=== PATIENT | male | born 1960 | race Caucasian/White ===

== ENCOUNTER 2019-12-18 09:39 | Outpatient (CLI) | payer BC, SELFPAY ==
[2019-12-18 09:54] LABS: Basophils Absolute Auto 0.07 K/mm3 (0.00-0.10); Eosinophils Absolute Auto 0.18 K/mm3 (0.02-0.50); Eosinophils Percent Auto 2.5 % (1.0-6.0); Hematocrit 41.7 % (40.0-54.0); Hemoglobin 14.1 g/dL (14.0-18.0); Immature Granulocyte Absolute 0.02 K/mm3 (0.00-0.00); Immature Granulocyte Percent A 0.3 % (0.0-0.0); Lymphocytes Absolute Auto 1.74 K/mm3 (1.10-4.50); Lymphocytes Percent Auto 23.8 % (18.0-42.0); Mean Corpuscular HGB Conc 33.8 g/dL (32.0-36.0); Mean Corpuscular Hemoglobin 33.3 pg (27.0-31.0); Mean Corpuscular Volume 98.3 fL (78.0-102.0); Mean Platelet Volume 9.1 fl (8.7-11.0); Monocytes Absolute Auto 0.52 K/mm3 (0.10-0.90); Monocytes Percent Auto 7.1 % (2.0-11.0); Neutrophils Absolute Auto 4.8 K/mm3 (1.7-7.2); Neutrophils Percent Auto 65.3 % (50.0-70.0); Platelet Count Result 169 K/mm3 (150-420); Red Blood Count 4.24 M/mm3 (4.70-6.10); Red Cell Distribution Width 15.1 % (11.6-14.4); White Blood Count 7.3 K/mm3 (4.8-10.8)
[2019-12-18 10:32] LABS: Alanine Aminotransferase 21 U/L (16-63); Albumin Level 3.6 g/dL (3.4-5.0); Alkaline Phosphatase 87 U/L (46-116); Anion Gap 13.2 mmol/L (7-16); Aspartate Amino Transferase 13 U/L (15-37); Bilirubin,Total 0.4 mg/dL (0.00-1.00); Blood Urea Nitrogen 14 mg/dL (7-18); Calcium 8.7 mg/dL (8.5-10.1); Carbon Dioxide 28 mmol/L (21-32); Chloride 101 mmol/L (98-108); Estimated Glomerular Filt Rate > 60; Glucose 110 mg/dL (70-99); Osmolality Calculated 287 mOsm/kg (285-295); Potassium 4.2 mmol/L (3.5-5.1); Sodium 138 mmol/L (136-145); Total Protein 6.7 g/dL (6.4-8.2)
== END 2019-12-18 09:40 | disposition home or self-care (01) ==
LOC: CHSLAB 09:42
PROVIDERS: PCP Family Medicine; Visit Provider Internal Medicine Gastroenterology
DX: R10.9 Unspecified abdominal pain (principal)
CPT/HCPCS: 36415; 80053; 85025

== ENCOUNTER 2020-01-10 08:24 | Outpatient (CLI) | payer BC, SELFPAY ==
--- NOTE | ~2020-01-10 | CT_ITS ---
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 Automated exposure control and iterative reconstruction technique were employe d. Exam dose: 568.49 mGy-cm total exam DLP. COMPARISON: 02/17/2019 CT thorax abdomen and pelvis FINDINGS: The lung bases are clear of infiltrate or consolidation. Normal heart size. No pericardial or pleural effusion. There is diffuse hepatic steatosis. No hepatic space-occupying mass lesion is evident. The liver, gal lbladder, bile ducts, spleen, pancreas and pancreatic duct as well as adrenal glands and kidneys are unremarkable. Normal caliber of the abdominal aorta. No intraperitoneal or retroperitoneal or pelvic mass lesion or adenopathy or ascites. Gastric and small bowel sutures related to gastric bypass surgery are noted. 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 There is a wide supraumbilical ventral midline abdominal wall hernia without any bowel obstruction or strangulat ion. No bowel obstruction, bowel wall thickening, pneumatosis or intraperitoneal free air. There is atherosclerotic calcification of the abdominal aorta and iliac arteries and femoral arteries but no aneurysm. No intraperitoneal or retroperitoneal or pelvic mass lesion or adenopathy or ascite s. There is a small fat-containing left inguinal hernia. There is mild generalized thickening of the urinary bladder wall. There is moderate prostate enlargem ent as well as prostate calcifications. No suspicious osteolytic or osteoblastic lesions. 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 Reviewed, dictated and finalized at location [facility]. IMPRESSION: Status post right colectomy for history of carcinoma of the hepati c flexure of the colon; no recurrent or metastatic disease is evident Supraumbilical ventral abdominal wall hernia Hepatic steatosis Status post gastric bypass graft surgery Mild diffuse urinary bladder wall thickening likely secondary to prostate enlar gement
== END 2020-01-10 08:25 | disposition home or self-care (01) ==
PROVIDERS: PCP Family Medicine; Visit Provider Internal Medicine Hematology & Oncology
DX: C18.3 Malignant neoplasm of hepatic flexure (principal)
CPT/HCPCS: 74177; Q9965

== ENCOUNTER 2020-03-04 01:25 | Outpatient (CLI) | payer BC, SELFPAY ==
[2020-03-04 18:03] LABS: SARS-CoV-2 RNA PCR Negative
== END 2020-03-04 01:26 | disposition home or self-care (01) ==
LOC: ANHCOVIDDT 01:25
PROVIDERS: PCP Family Medicine; Visit Provider Surgery
DX: Z01.812 Encounter for preprocedural laboratory examination (principal); Z20.828 Contact with and (suspected) exposure to other viral communicable diseases
CPT/HCPCS: 87635; C9803; U0003

== ENCOUNTER 2020-03-08 11:15 | Inpatient (IN) | payer BC, SELFPAY ==
[2020-02-23 13:23] VITALS: BMI 30.3
[2020-03-07] VITALS (18 sets, daily range): BP systolic 106–161; BP diastolic 63–91; PULSE 70–105; RESP 12–20; TEMP 36.3–37.3; O2SAT 92–99
[2020-03-07] MEDS: LACTATED RINGERS 1,000 ML 30 ML IV CONT ×2 (06:50→11:56)
[2020-03-07] MEDS: ACETAMINOPHEN 500 MG TABLET 1000 MG PO (06:53)
[2020-03-07] MEDS: KETOROLAC 15 MG/ML VIAL (*BKC) IV PUSH (06:54)
--- NOTE | 2020-03-07 07:04 | WPDANESEPPF ---
Anes - Initial Pre Proc Eval Procedure: Operation Date: 03/07/20 07:30 Proposed Procedures p Open Retrorectus Recurrent Incisional Hernia Repair With Mesh, Possible Bilateral Component Separation - Enrique Ward DO Date/Time: 03/07/20 07:04 Surgeon: Enrique Ward DO Pre Op Diagnosis: Recurrent Incisional Hernia Patient Data Age: 59 Gender: M Height: 5 ft 8 in Weight: 90.5 kg Allergies Allergy/AdvReac Type Severity Reaction Status Date / Time No Known Allergies Allergy Verified 02/15/20 09:06 Home Medications Medication Instructions Recorded Confirmed Type aspirin 81 mg PO DAILY 04/26/19 02/23/20 History Centrum Silver Men 1 tablet PO DAILY 05/05/19 02/23/20 History vitamin B complex [B 3,000 tablet PO DAILY 05/05/19 02/23/20 History Complex-Vitamin B12] gabapentin 300 mg PO BID 09/27/19 02/23/20 History hydrocodone 5 mg-acetaminophen 325 1 tablet PO Q8H PRN 01/20/20 02/23/20 History mg tablet varenicline 0.5 mg tablet 0.5 mg PO DAILY 02/15/20 02/23/20 History omeprazole 20 mg PO BID 02/23/20 02/23/20 History Patient hx anesthesia problems: none Family hx anesthesia problems: none [facility] Social History Social History Smoking status: Former smoker Tobacco type: cigarettes Additional smoking assessment comments: pt uses chantix has smoked off and on for years, not smoking now Alcohol intake: current Substance use: never Living arrangements: with family Gender identity (if verbalized by the patient): Male Spiritual care concerns: No Anes - Eval Final PreProcedure Day of Procedure 03/07/20 07:04 Patient weight: overweight Heart: regular rate and rhythm Lungs: clear to auscultation Airway: Mallampati scale class II Neurological: alert and oriented Last oral intake: >/= 8 hours ASA classification: III Emergent: no Anesthetic plan: proceed Anesthesia type and monitoring: general ETT and standard monitoring Informed Consent: The patient's anesthetic plan and its attendant risks and benefits were discussed with the patient/family/POA. Questions were solicited and answers provided to the satisfaction of the patient/family/POA.
--- NOTE | 2020-03-07 07:18 | WPDHPUPDATE1 ---
History and Physical Update Update Date/Time: 03/07/20 07:18 History and Physical has been reviewed, including an updated exam of the patient. There are NO changes in the patient's condition. Risks, benefits, and alternatives have been discussed and questions answered. Patient agrees to proceed with procedure.
[2020-03-07] MEDS: ceFAZolin SODIUM 1 GM VIAL 2 GM IV PUSH (11:20)
--- NOTE | 2020-03-07 11:50 | PM.PROC ---
Procedure Note - Detailed Date of procedure: 03/07/20 Pre-op diagnosis: Recurrent Incisional Hernia Post-op diagnosis: same Procedure performed: 1. Retrorectus recurrent incisional hernia repair with Prolene Soft Mesh 2. Bilateral transversus abdominus myofascial flap advancement (3cm on Left and 3cm on Right) 3. Removal of mesh foreign body Description of procedure: Procedure as well as risks, benefits, and alternatives were discussed with the patient. Written consent was obtained and placed in chart prior to procedure. Patient was brought back to surgical suite. He was placed supine on the operating table. Time-out was done to confirm patient and procedure. He was then intubated by the Anesthesia Department. His abdomen was prepped and draped in sterile fashion using chlorhexidine prep. An elliptical incision was made around the old scar using a 10 blade scalpel. This incision was then extended approximately 5 cm cephalad and 5 cm caudad to the old scar. Electrocautery was used for hemostasis and for careful dissection of the old scar from the hernia sac. I then cleared the hernia sac circumferentially down to the level of the fascia on each side. The linea alba was then incised superior to the hernia defect using electrocautery and then the abdominal cavity was entered. I then swept underneath the hernia defect and identify the old mesh scarred into the hernia sac. There were a few adhesions up to the old mesh and hernia sac. The mesh was carefully taken down from the hernia sac and the surrounding fascia using electrocautery. There was 1 loop of small bowel that was adherent up to the mesh and this was taken down using Metzenbaum scissors. The mesh was then freed up the remainder of the way circumferentially using electrocautery and then it was excised completely and sent to the lab for pathology. I then extended the linea alba fascial incision caudad to the lower extent of my skin incision. I also extended this cephalad to the more cephalad extent of the skin incision. The abdominal cavity was carefully inspected and no abnormalities were noted. I then began creating the retro rectus plane along the right posterior rectus sheath using electrocautery. Once the retro rectus plane was entered I then carefully continued this dissection cephalad towards the xiphoid bone and caudad towards the space of Retzius. The retro rectus plane was carefully dissected out laterally to the lateral edge of the rectus muscle. Care was taken to identify and preserve the perforating vessels. A similar dissection was then performed along the left side by entering into the retro rectus plane through the left posterior rectus sheath. This was extended again in the similar fashion from the xiphoid bone down to the pubic bone. I then began a transversus abdominis release in the right upper quadrant by carefully isolating and incising the transversus abdominus muscle. Once the proper plane was entered, I was able to continue this dissection from the costal margin down inferiorly all the way beyond the linea semicircularis. I carefully dissected along this plane to allow an adequate release to bring the fascia together in the midline. After pulling the fascia towards midline on the right side, I could see that there was still some tension along the left and the fascia was not coming completely to the midline on the left. I then also began the transversus abdominis release on the left side in the left upper quadrant. The transversus abdominus muscle was incised using electrocautery and the plane was entered to continue this release from the costal margin inferiorly to the linea semi circularis. Once the bilateral transversus abdominis release was performed, I was now able to bring the fascia together in the midline with about 3 cm of mobilization on each side. There was 1 small tear in the peritoneum on the right lateral side and this was closed using 3 0 Vicryl [id number]
--- NOTE | 2020-03-07 14:39 | ADMGEN ---
This patient, Wesley Colon, was admitted to 3 [facility] Surg Room 309-01 at 1425. Patient/family oriented to hospital policies and general routines including ID bracelet, bed and alarms, visiting hours, pain management, procedures, bathroom and other care routines, personal items, smoking policy, room service/diet, and visiting hours. Valuables list has been completed. Information on how to activate the Rapid Response Team has been discussed. Patient/Family are encouraged to report perceived risks to care and to ask questions if they do not understand what they are told or what they should do.
[2020-03-07] MEDS: LACTATED RINGERS 1,000 ML 100 ML IV CONT (15:09)
[2020-03-07] MEDS: GABAPENTIN 300 MG CAPSULE PO (16:44)
[2020-03-08 00:06] VITALS: BP 133/75; PULSE 81; RESP 20; TEMP 36.8; O2SAT 92
[2020-03-08 04:06] VITALS: BP 136/71; PULSE 91; RESP 20; TEMP 36.8; O2SAT 90
[2020-03-08 06:59] LABS: Hematocrit 37.1 % (42.0-52.0); Hemoglobin 12.4 g/dL (14.0-18.0); Mean Corpuscular HGB Conc 33.4 g/dl (32-36); Mean Corpuscular Hemoglobin 32.2 pg (26-34); Mean Corpuscular Volume 96.4 fl (80-100); Mean Platelet Volume 10.3 fl (7.4-10.4); Platelet Count Result 162 k/mm3 (150-375); Red Blood Count 3.85 M/mm3 (4.6-6.20); Red Cell Distribution Width 14.3 % (11.5-14.5); White Blood Count 11.4 K/mm3 (4.5-10.0)
[2020-03-08 07:09] LABS: Anion Gap 3 mmol/L (8-16); Blood Urea Nitrogen 7 mg/dL (9-20); Carbon Dioxide 31 mmol/L (22-30); Chloride 102 mmol/L (98-107); Estimated CRCL calculation 109 ml/min; Estimated Glomerular Filt Rate > 60; Glucose 123 mg/dL (75-110); Sodium 136 mmol/L (137-145)
[2020-03-08 08:00] VITALS: PULSE 91
[2020-03-08] MEDS: ENOXAPARIN 40 MG/0.4 ML SYRINGE SUB-Q (09:40)
[2020-03-08] MEDS: GABAPENTIN 300 MG CAPSULE PO ×2 (09:40→18:47)
[2020-03-08] MEDS: polyethylene glycoL 3350 17 GM POWD.PACK PO (09:40)
[2020-03-08] MEDS: ASPIRIN 81 MG CHEWABLE TABLET PO (09:40)
--- NOTE | 2020-03-08 09:49 | PM.PNGS ---
Progress Note: A&P Assessment and Plan (1) Recurrent incisional hernia: Code(s): K43.2 - Incisional hernia without obstruction or gangrene Status: Acute Assessment and Plan: Continue to slowly increase activity. Will add ibuprofen to pain meds today Adams out Advance diet Due to size of hernia and complexity of surgery, patient will likely need to be in hospital 1-2 more days Subjective Subjective Date/Time Seen: 03/08/20 09:49 Patient having difficult time with adequate pain control. Able to get up to chair for about 45 min last night. Would like albuterol for chest congestion. Exam GI: Inspection: incision (no drainage) GI Palp: Yes Tenderness to palpation present (GI) (midline incisional) Other: TERESA drain serosanguinous Objective Data Vital Signs Vital Signs: Vital Signs - 24 hr 03/07/20 11:47 03/07/20 12:02 03/07/20 12:15 Temperature 37.3 C Pulse Rate 79 77 80 Respiratory Rate 12 18 20 Blood Pressure 118/63 107/65 112/70 Pulse Oximetry 99 97 97 03/07/20 12:30 03/07/20 12:45 03/07/20 13:00 Temperature 37.1 C Pulse Rate 105 H 105 H 100 Respiratory Rate 13 14 Blood Pressure 139/89 116/73 136/77 Pulse Oximetry 94 93 93 03/07/20 13:15 03/07/20 13:30 03/07/20 13:45 Temperature Pulse Rate 101 H 86 86 Respiratory Rate 14 12 12 Blood Pressure 106/86 129/89 120/84 Pulse Oximetry 96 94 94 03/07/20 13:52 03/07/20 14:00 03/07/20 14:15 Temperature Pulse Rate 90 87 Respiratory Rate 12 12 Blood Pressure 125/80 121/84 Pulse Oximetry 94 94 94 03/07/20 14:35 03/07/20 14:50 03/07/20 15:20 Temperature 36.8 C 36.3 C L 36.4 C Pulse Rate 100 105 H 104 H Respiratory Rate 18 18 16 Blood Pressure 123/77 126/85 128/83 Pulse Oximetry 92 92 92 03/07/20 16:20 03/07/20 20:06 03/08/20 00:06 Temperature 36.7 C 36.9 C 36.8 C Pulse Rate 97 83 81 Respiratory Rate 18 20 20 Blood Pressure 116/83 134/88 133/75 Pulse Oximetry 92 94 92 03/08/20 04:06 Temperature 36.8 C Pulse Rate 91 Respiratory Rate 20 Blood Pressure 136/71 Pulse Oximetry 90 Intake/Output Intake/Output: Intake & Output 03/05/20 03/06/20 03/07/20 03/08/20 23:59 23:59 23:59 23:59 Intake Total 2720 1000 Output Total 680 Balance 2040 1000 Meds/Results Medications: Active Medications Generic Name Dose Route Start Last Admin Trade Name Freq PRN Reason Stop Dose Admin Acetaminophen 650 mg 03/07/20 14:26 Tylenol Tablet PO Q6H PRN Mild Pain (1-3) or Fever Hydrocodone Bitart/Acetaminophen 1 tab 03/07/20 14:21 [place] 5-325 Mg PO Q4H PRN Pain Rated 4-6 Hydrocodone Bitart/Acetaminophen 1 tab 03/07/20 14:21 03/08/20 01:56 [place] 10-325 Mg PO 1 tab Q6H PRN Administration Pain Rated 7-10 Albuterol 2 puff 03/08/20 09:46 Proventil Hfa INHALATION QIDRT PRN Shortness Of Breath Aspirin 81 mg 03/08/20 09:00 Aspirin Chewable PO DAILY [facility] Enoxaparin Sodium 40 mg 03/08/20 09:00 Lovenox SUB-Q DAILY [facility] Gabapentin 300 mg 03/07/20 17:00 03/07/20 16:44 Neurontin PO 300 mg BID BETHANY Administration Hydromorphone HCl 0.5 mg 03/07/20 14:21 Dilaudid Inj IV PUSH Q2H PRN Pain Rated 4-6 Hydromorphone HCl 1 mg 03/07/20 14:21 03/08/20 06:48 Dilaudid Inj IV PUSH 1 mg Q2H PRN Administration Pain Rated 7-10 Ibuprofen 800 mg 03/08/20 09:50 Motrin PO Q8H [facility] Ondansetron HCl 4 mg 03/07/20 14:21 Zofran Inj IV PUSH Q4H PRN Nausea And Vomiting Polyethylene Glycol 17 gm 03/08/20 09:00 Miralax PO QAM [facility] Labs Labs: Laboratory Results - last 24 hr 03/08/20 03/08/20 06:04 06:04 WBC 11.4 H RBC 3.85 L Hgb 12.4 L Hct 37.1 L MCV 96.4 MCH 32.2 MCHC 33.4 RDW 14.3 Plt Count 162 MPV 10.3 Sodium 136 L Potassium 4.0 Chloride 102 Carbon Dioxide 31 H Anion Gap 3 L BUN 7 L D Creatinine 0.70 Estim C
[2020-03-08] MEDS: IBUPROFEN 400 MG TABLET 800 MG PO ×2 (11:19→18:47)
--- NOTE | 2020-03-08 13:08 | WPDANESPN ---
Anes - Prog Note Post-Op Date/Time: 03/08/20 13:08 Cardiovascular status: normal Respiratory status: normal Airway patency: baseline Mental status: baseline Post-Op hydration status: normal Vital Signs: Last Vital Signs Temp 36.8 C 03/08/20 04:06 Pulse 91 03/08/20 08:00 Resp 20 03/08/20 04:06 BP 136/71 03/08/20 04:06 Pulse Ox 90 03/08/20 04:06 Pain Score (VAS): 2 I/O: Intake & Output 03/07/20 03/08/20 03/08/20 23:59 07:59 15:59 Intake Total 1220 1000 Output Total 460 60 Balance 760 1000 -60 Laboratory Tests 03/08/20 06:04 03/08/20 06:04 03/08/20 03/08/20 06:04 06:04 WBC 11.4 H RBC 3.85 L Hgb 12.4 L Hct 37.1 L MCV 96.4 MCH 32.2 MCHC 33.4 RDW 14.3 Plt Count 162 MPV 10.3 Sodium 136 L Potassium 4.0 Chloride 102 Carbon Dioxide 31 H Anion Gap 3 L BUN 7 L D Creatinine 0.70 Estim Creat Clear Calc 109 Estimated GFR > 60 Glucose 123 H Calcium 8.0 L Post-procedural complaints: none Patient Feedback: Patient satisfied with anesthetic care.
[2020-03-08 14:00] VITALS: BP 138/78; PULSE 95; RESP 16; TEMP 36.9; O2SAT 91
[2020-03-08] MEDS: ALBUTEROL SULFATE (*SP) AEROSOL 1 PUFF 2 PUFF INHALATION (15:16)
[2020-03-08 22:00] VITALS: BP 132/82; PULSE 91; RESP 20; TEMP 36.9; O2SAT 90
[2020-03-09] MEDS: IBUPROFEN 400 MG TABLET 800 MG PO ×3 (02:43→16:59)
[2020-03-09] MEDS: ALBUTEROL SULFATE (*SP) AEROSOL 1 PUFF 2 PUFF INHALATION (05:30)
[2020-03-09 06:00] VITALS: BP 127/87; PULSE 100; RESP 16; TEMP 36.7; O2SAT 92
[2020-03-09] MEDS: ENOXAPARIN 40 MG/0.4 ML SYRINGE SUB-Q (08:13)
[2020-03-09] MEDS: polyethylene glycoL 3350 17 GM POWD.PACK PO (08:13)
[2020-03-09] MEDS: ASPIRIN 81 MG CHEWABLE TABLET PO (08:13)
[2020-03-09] MEDS: GABAPENTIN 300 MG CAPSULE PO ×2 (08:13→16:59)
[2020-03-09 08:39] VITALS: O2SAT 94
--- NOTE | 2020-03-09 12:53 | PM.PNGS ---
Progress Note: A&P Assessment and Plan (1) Recurrent incisional hernia: Code(s): K43.2 - Incisional hernia without obstruction or gangrene Status: Acute Assessment and Plan: Making slow progress, TERESA drain output still a little high to remove today. Continue current pain regimen with Ibuprofen and [place]. Possibly home tomorrow. Increase activity, encourage IS. (2) Postoperative pain: Code(s): G89.18 - Other acute postprocedural pain Status: Acute Subjective Subjective Date/Time Seen: 03/09/20 12:53 Pain control improving. Still not ambulating much. Tolerating diet, passing flatus, no BM yet. Exam GI: Inspection: incision (clean/dry/intact with ally) GI Palp: Yes Tenderness to palpation present (GI) (incisional) Other: TERESA drain serosanguinous Objective Data Vital Signs Vital Signs: Vital Signs - 24 hr 03/08/20 14:00 03/08/20 22:00 03/09/20 06:00 Temperature 36.9 C 36.9 C 36.7 C Pulse Rate 95 91 100 Respiratory Rate 16 20 16 Blood Pressure 138/78 132/82 127/87 Pulse Oximetry 91 90 92 03/09/20 08:39 Temperature Pulse Rate Respiratory Rate Blood Pressure Pulse Oximetry 94 Intake/Output Intake/Output: Intake & Output 03/06/20 03/07/20 03/08/20 03/09/20 23:59 23:59 23:59 23:59 Intake Total 2720 1240 280 Output Total 680 60 58 Balance 2040 1180 222 Meds/Results Medications: Active Medications Generic Name Dose Route Start Last Admin Trade Name Freq PRN Reason Stop Dose Admin Acetaminophen 650 mg 03/07/20 14:26 Tylenol Tablet PO Q6H PRN Mild Pain (1-3) or Fever Hydrocodone Bitart/Acetaminophen 1 tab 03/07/20 14:21 [place] 5-325 Mg PO Q4H PRN Pain Rated 4-6 Hydrocodone Bitart/Acetaminophen 1 tab 03/07/20 14:21 03/09/20 08:11 [place] 10-325 Mg PO 1 tab Q6H PRN Administration Pain Rated 7-10 Albuterol 2 puff 03/08/20 09:46 03/09/20 05:30 Proventil Hfa INHALATION 2 puff QIDRT PRN Administration Shortness Of Breath Aspirin 81 mg 03/08/20 09:00 03/09/20 08:13 Aspirin Chewable PO 81 mg DAILY BETHANY Administration Enoxaparin Sodium 40 mg 03/08/20 09:00 03/09/20 08:13 Lovenox SUB-Q 40 mg DAILY BETHANY Administration Gabapentin 300 mg 03/07/20 17:00 03/09/20 08:13 Neurontin PO 300 mg BID BETHANY Administration Hydromorphone HCl 0.5 mg 03/07/20 14:21 03/08/20 22:16 Dilaudid Inj IV PUSH 0.5 mg Q2H PRN Administration Pain Rated 4-6 Hydromorphone HCl 1 mg 03/07/20 14:21 03/08/20 06:48 Dilaudid Inj IV PUSH 1 mg Q2H PRN Administration Pain Rated 7-10 Ibuprofen 800 mg 03/08/20 10:00 03/09/20 09:39 Motrin PO 800 mg Q8H BETHANY Administration Ondansetron HCl 4 mg 03/07/20 14:21 Zofran Inj IV PUSH Q4H PRN Nausea And Vomiting Polyethylene Glycol 17 gm 03/08/20 09:00 03/09/20 08:13 Miralax PO 17 gm QAM BETHANY Administration
--- NOTE | 2020-03-09 13:47 | PC.NURSE ---
On 03/09/20, the student, [Gena Wilson ], provided care and [facility]. I have reviewed the student's documentation and agree with the findings.
[2020-03-09 14:15] VITALS: BP 127/79; PULSE 85; RESP 18; TEMP 36.8; O2SAT 96
[2020-03-09 22:00] VITALS: BP 144/92; PULSE 86; RESP 16; TEMP 36.6; O2SAT 95
[2020-03-10] MEDS: IBUPROFEN 400 MG TABLET 800 MG PO ×2 (01:50→10:02)
[2020-03-10 06:00] VITALS: BP 134/90; PULSE 92; RESP 16; TEMP 36.9; O2SAT 94
[2020-03-10] MEDS: ASPIRIN 81 MG CHEWABLE TABLET PO (08:50)
[2020-03-10] MEDS: ENOXAPARIN 40 MG/0.4 ML SYRINGE SUB-Q (08:50)
[2020-03-10] MEDS: GABAPENTIN 300 MG CAPSULE PO (08:50)
[2020-03-10] MEDS: oxyCODONE/ACETAMINOPHEN (*CRX) 5-325 MG TABLET 1 TABLET PO (08:51)
[2020-03-10] MEDS: polyethylene glycoL 3350 17 GM POWD.PACK PO (10:02)
--- NOTE | 2020-03-10 11:34 | PC.NURSE ---
removed barak drain 1 suture removed, without difficulty, pt tolerated well, pressure dressing applied 4x4 and [place] tape.
--- NOTE | 2020-03-10 11:45 | PM.DS ---
DS: Admitting Diagnosis Admitting Diagnosis Admitting Diagnosis: Recurrent Incisional Hernia DS: Discharge Diagnosis Discharge Diagnosis (1) Recurrent incisional hernia: Code(s): K43.2 - Incisional hernia without obstruction or gangrene Status: Acute (2) Postoperative pain: Code(s): G89.18 - Other acute postprocedural pain Status: Acute DS: Summary Hospital Course Reason for hospitalization: Recurrent incisional hernia. Hospital Course: This is a 59-year-old man who presented for repair of recurrent incisional hernia. Patient underwent repair of the recurrent incisional hernia with bilateral component separation and removal of old mesh on 03/07/2020. Due to the complexity of the surgery and amount of postoperative pain and activity limitation, he was admitted to the hospital postoperatively. He had a drain placed within the retro rectus space at the time of surgery and this was managed and monitored postoperatively. On postop day 1 he was still having a significant amount of pain and requiring IV pain medications. He was very limited on his ability to get up out of bed. By postop day 2 his pain was somewhat better managed but he was still requiring and occasional IV dose of pain medications. He was getting out of bed a little more frequently. The drain was still having a significant amount of output and therefore this was kept in place 1 more day. Postop day 3 his oral pain medication was transitioned to Percocet since his [place] was not helping as much as he would like. Pain was better controlled with Percocet and he was no longer requiring IV pain meds. He was ambulating with less difficulty and was remaining otherwise stable. The TERESA drain was removed on postop day 3. He was then discharged on postop day 3. Status at Discharge Functional status at discharge: independent ambulation Overall status at discharge: patient is progressing back to baseline Time Spent with Patient Time attestation: Total time spent providing and/or coordinating discharge services: Time spent: Less than 30 minutes Exam Const: General: no acute distress Limitations: no limitations Neck: Neck: supple and no JVD Resp: Effort & Inspection: normal respiratory effort Auscultation: clear to auscultation bilaterally Cardio: Rate: regular rate Rhythm: regular rhythm GI: GI Palp: Yes Soft to palpation and Yes Tenderness to palpation present (GI) ( Incisional.) Other: Incision intact with ally, no drainage or redness. TERESA drain with minimal serosanguineous output. DS: Data Data Completed and Pending Completed studies during hospitalization: Pending at discharge 03/07/20 08:06 Surgical [PTH] Routine Discharge Plan Discharge Attending physician on discharge: Enrique Boykin Discharging Clinician: Enrique Boykin Patient Disposition: Home, Self-Care Activity: other - see discharge instructions Diet: regular Wound Care Instructions: other - see discharge instructions Discharge Instructions: DISCHARGE INSTRUCTION SHEET FOR HERNIA, GALLBLADDER AND APPENDIX SURGERIES DR. BOYKIN PATIENT TO TAKE HOME 1. May shower in 24 hours, no soaking in bath x 2weeks. 2. Call office for: Wound increasingly painful or bleeding Vomiting Fever of greater than 101 degrees 3. If no bowel movement for three days, take 1 oz. (30 ml) Milk of Magnesia or MiraLax 17g 1 to 2 times daily. 4. No heavy lifting > 10-15 pounds x 6 weeks for hernia repairs and 2 weeks for laparoscopic cholecystectomy or appendectomy. 5. No driving for 3 days or while taking narcotic pain medications. 6. Ice to surgical site for 48 hours (30 min on, then 30 min off). 7. Up walking 10-30 minutes three times per day. 8. Resume previous home medications. 9. Follow-up 10-14 days in office for wound check or as previously scheduled. ([id number]) 10. Oral johnna
== END 2020-03-10 12:52 | disposition home or self-care (01) | DRG 355 ==
LOC: ANHSURGERY 11:22 → ANH3MEDSUR 03-10 11:44
PROVIDERS: Admitting Provider Surgery; PCP Family Medicine; Visit Provider Surgery
PROC: 0WQF0ZZ Repair Abdominal Wall, Open Approach (ICD-10-PCS; principal; 2020-03-07 07:30)
DX: K43.2 Incisional hernia without obstruction or gangrene (principal); G89.18 Other acute postprocedural pain; Z87.891 Personal history of nicotine dependence
CPT/HCPCS: 36415; 80048; 85027; 88300; 94640; A9270; C1781; C9290; J0690; J1100; J1170; J1650; J1885; J2250; J2405; J2704; J3010; J7120

== ENCOUNTER 2020-05-02 00:03 | Outpatient (CLI) | payer BC, SELFPAY ==
[2020-05-02 19:47] LABS: SARS-CoV-2 RNA PCR Negative
== END 2020-05-02 00:04 | disposition home or self-care (01) ==
LOC: ANHCOVIDDT 00:03
PROVIDERS: PCP Family Medicine; Visit Provider Internal Medicine Gastroenterology
DX: Z01.818 Encounter for other preprocedural examination (principal); Z20.828 Contact with and (suspected) exposure to other viral communicable diseases
CPT/HCPCS: 87635; C9803; U0003

== ENCOUNTER 2020-05-05 00:10 | Day surgery (SDC) | payer BC, SELFPAY ==
[2020-04-27 15:17] VITALS: BMI 30.8
[2020-04-28 14:53] VITALS: BMI 30.2
[2020-05-05 06:14] VITALS: BP 142/85; PULSE 75; RESP 16; TEMP 36.8; O2SAT 98; BMI 29.3
[2020-05-05] MEDS: LACTATED RINGERS 1,000 ML 150 ML IV CONT (06:27)
--- NOTE | 2020-05-05 07:03 | WPDANESEPPF ---
Anes - Initial Pre Proc Eval Procedure: Operation Date: 05/05/20 07:30 Proposed Procedures p Screening Colonoscopy - Rodolfo Wright MD Date/Time: 05/05/20 07:03 Surgeon: Rodolfo Wright MD Pre Op Diagnosis: Neoplasm Screening/ Hx Colon Ca Patient Data Age: 59 Gender: M Height: 1.73 m Weight: 87.6 kg Last Vital Signs Temp 36.8 C 05/05/20 06:14 Pulse 75 05/05/20 06:14 Resp 16 05/05/20 06:14 BP 142/85 H 05/05/20 06:14 Pulse Ox 98 05/05/20 06:14 Allergies Allergy/AdvReac Type Severity Reaction Status Date / Time No Known Allergies Allergy Verified 05/05/20 06:13 Home Medications Medication Instructions Recorded Confirmed Type Centrum Silver Men 1 tablet PO DAILY 05/05/19 05/05/20 History gabapentin 300 mg PO BID 09/27/19 05/05/20 History omeprazole 20 mg PO PRN PRN 02/23/20 05/05/20 History aspirin 325 mg PO DAILY 04/27/20 05/05/20 History Patient hx anesthesia problems: none Family hx anesthesia problems: none PMFSH Past Medical History Medical History COPD (chronic obstructive pulmonary disease) History of trigger finger Incisional hernia of anterior abdominal wall without obstruction or gangrene Malignant neoplasm of hepatic flexure Status post resection and reanastomosis. Chemotherapy now in progress now Port-A-Cath in place Surgical History Surgical History H/O hernia repair 03/07/2020: Retrorectus recurrent incarcerated hernia repair with Prolene soft mesh, THUY transverse abdominus myofascial flap advancement (3cm on left, 3cm on right) removal mesh foreign body. H/O right hemicolectomy History of rotator cuff surgery Family History Family History Mother Family history of malignant neoplasm of breast in first degree relative Social History Social History Smoking packs per day: 1.5 Smoking cigarettes per day: 30.0 Years smoked: 40 Smoking pack-years: 60.00 Smoking status: Former smoker Tobacco type: cigarettes Additional smoking assessment comments: pt uses chantix has smoked off and on for years, not smoking now Alcohol intake: current Drinks per week: 4 Substance use: never Substance use type: does not use Living arrangements: with family Gender identity (if verbalized by the patient): Male Spiritual care concerns: No Anes - Eval Final PreProcedure Day of Procedure 05/05/20 07:03 Patient weight: overweight Heart: regular rate and rhythm Lungs: clear to auscultation and normal air movement Airway: Mallampati scale class II Neurological: alert and oriented Last oral intake: >/= 8 hours ASA classification: III Emergent: no Anesthetic plan: proceed Anesthesia type and monitoring: general GIVS Informed Consent: The patient's anesthetic plan and its attendant risks and benefits were discussed with the patient/family/POA. Questions were solicited and answers provided to the satisfaction of the patient/family/POA.
--- NOTE | 2020-05-05 07:58 | WPDGICN ---
Assessment and Plan Assessment and plan (1) Malignant neoplasm of hepatic flexure: Code(s): C18.3 - Malignant neoplasm of hepatic flexure Status: Acute Assessment and Plan: Patient has history of adenocarcinoma the colon resected with right hemicolectomy. Very large tumor noted at that time. Plan is for surveillance colonoscopy now 1 year after resection. Further recommendations after endoscopy. Fiber supplements will be added in attempt bulk up his stools. (2) Incisional hernia of anterior abdominal wall without obstruction or gangrene: Code(s): K43.2 - Incisional hernia without obstruction or gangrene Status: Acute GI Consult Note Consult date/time: 05/05/20 07:58 HPI: Wesley Colon is a 59 year old male Seen in evaluation at the request of Dr. Bach. patient has a history of a large hepatic flexure colon mass surgical resection was accomplished ultimately was very large size adherent to the stomach. But no lymph nodes evident. Patient subsequently has been followed for chemotherapy. He presents today for follow-up exam 1 year later. His current bowel movements are somewhat loose. He continues to note some right upper quadrant discomfort. Denies any fever. He has had no bleeding. His weight has remained stable. Review of Systems Review of Systems: All systems reviewed & are unremarkable except as noted in HPI and below PMFSH Past Medical History Medical History COPD (chronic obstructive pulmonary disease) History of trigger finger Incisional hernia of anterior abdominal wall without obstruction or gangrene Malignant neoplasm of hepatic flexure Status post resection and reanastomosis. Chemotherapy now in progress now Port-A-Cath in place Surgical History Surgical History H/O hernia repair 03/07/2020: Retrorectus recurrent incarcerated hernia repair with Prolene soft mesh, THUY transverse abdominus myofascial flap advancement (3cm on left, 3cm on right) removal mesh foreign body. H/O right hemicolectomy History of rotator cuff surgery Family History Family History Mother Family history of malignant neoplasm of breast in first degree relative Social History Social History Smoking packs per day: 1.5 Smoking cigarettes per day: 30.0 Years smoked: 40 Smoking pack-years: 60.00 Smoking status: Former smoker Tobacco type: cigarettes Additional smoking assessment comments: pt uses chantix has smoked off and on for years, not smoking now Alcohol intake: current Drinks per week: 4 Substance use: never Substance use type: does not use Living arrangements: with family Gender identity (if verbalized by the patient): Male Spiritual care concerns: No Meds Home Medications and Allergies Home Medications Medication Instructions Recorded Confirmed Type Centrum Silver Men 1 tablet PO DAILY 05/05/19 05/05/20 History gabapentin 300 mg PO BID 09/27/19 05/05/20 History omeprazole 20 mg PO PRN PRN 02/23/20 05/05/20 History aspirin 325 mg PO DAILY 04/27/20 05/05/20 History Allergies Allergy/AdvReac Type Severity Reaction Status Date / Time No Known Allergies Allergy Verified 05/05/20 06:13 Vital Signs Vital Signs - 24 hr 05/05/20 06:14 Temperature 98.2 F Pulse Rate 75 Respiratory Rate 16 Blood Pressure 142/85 H Pulse Oximetry 98 Exam Narrative: Exam Narrative: Physical exam reveals patient be alert. Vital signs stable. HEENT exam unremarkable. Patient is anicteric. Lungs are clear to auscultation and percussion. Heart is without murmur or extra sounds. Abdominal exam bowel sounds are present soft nontender with no hepatosplenomegaly. Well-healed midline scar noted. Digital external rectal exam normal.
[2020-05-05 08:02] VITALS: BP 119/88; PULSE 88; RESP 29; O2SAT 97
[2020-05-05 08:12] VITALS: BP 134/80; PULSE 68; RESP 16; O2SAT 97
[2020-05-05 08:22] VITALS: BP 127/86; PULSE 66; RESP 18; O2SAT 96
== END 2020-05-05 08:44 | disposition home or self-care (01) ==
PROVIDERS: PCP Family Medicine; Visit Provider Internal Medicine Gastroenterology
PROC: 0DJD8ZZ Inspection of Lower Intestinal Tract, Via Natural or Artificial Opening Endoscopic (ICD-10-PCS; CPT 45378; principal; 2020-05-05 07:30)
DX: Z08 Encounter for follow-up examination after completed treatment for malignant neoplasm (principal); K64.8 Other hemorrhoids; Z85.038 Personal history of other malignant neoplasm of large intestine; K43.2 Incisional hernia without obstruction or gangrene; J44.9 Chronic obstructive pulmonary disease, unspecified; Z90.49 Acquired absence of other specified parts of digestive tract; Z98.0 Intestinal bypass and anastomosis status; Z87.891 Personal history of nicotine dependence
CPT/HCPCS: 45378; J2704; J7120

== ENCOUNTER 2020-05-29 01:58 | Outpatient (CLI) | payer BC, SELFPAY ==
[2020-05-29 18:52] LABS: SARS-CoV-2 RNA PCR Negative
== END 2020-05-29 01:59 | disposition home or self-care (01) ==
LOC: ANHCOVIDDT 01:58
PROVIDERS: PCP Family Medicine; Visit Provider Surgery
DX: Z01.818 Encounter for other preprocedural examination (principal); Z20.828 Contact with and (suspected) exposure to other viral communicable diseases
CPT/HCPCS: 87635; C9803; U0003

== ENCOUNTER 2020-06-01 00:36 | Day surgery (SDC) | payer BC, SELFPAY ==
[2020-05-26 11:56] VITALS: BMI 30.4
--- NOTE | 2020-05-26 13:07 | PC.NURSE ---
PT STATES NO CHANGE IN HEALTH HX SINCE LAST INTERVIEW ON 04/28/20
[2020-06-01 06:06] VITALS: BP 133/77; PULSE 78; RESP 20; TEMP 36.4; O2SAT 98
--- NOTE | 2020-06-01 07:16 | PM.HPGS ---
History of Present Illness History of Present Illness Consent: Risks, benefits, and alternatives removal of a Port-A-Cath have been discussed and questions answered. Patient agrees to proceed with procedure. Chief complaint: malignant neoplasm of hepatic flexure Narrative: Wesley Colon is a 59 year old male was found to have stage to colon cancer of the hepatic flexure in 2019. He has subsequently undergone undergone a course of chemotherapy through his indwelling Port-A-Cath. He has had a CT scan showing no recurrence and has been approved by Dr. Ervin walker to have the Port-A-Cath removed at this time. He presents at this time for same. Review of Systems Constitutional: Constitutional: Reports no additional constitutional complaints, Reports fatigue and Denies malaise Eyes: Eyes: Denies change in vision and Denies loss of vision ENT: Reports Normal hearing present, Denies change in voice, Denies dizziness, Denies hoarseness and Denies sore throat Cardiovascular: Cardiovascular: Denies chest pain, Denies leg edema and Denies dyspnea Respiratory: Respiratory: Denies cough, Denies dyspnea and Denies wheezing Gastrointestinal: Gastrointestinal: Denies hematochezia, Denies change in bowel habits and Denies heartburn Genitourinary: Genitourinary: Denies urinary frequency and Denies urinary incontinence Neurologic: Reports Normal hearing present, Denies confusion, Denies dizziness, Denies loss of vision, Denies memory loss and Denies seizure-like activity Psychiatric: Psychiatric: Denies confusion, Denies depression and Denies memory loss Endocrine: Endocrine: Denies cold intolerance and Reports fatigue Hematologic/Lymphatic: Hematologic/Lymphatic: Denies easy bleeding and Denies easy bruising Allergic/Immunologic: Allergic/Immunologic: Denies wheezing [facility] Past Medical History Medical History (Updated 06/01/20 @ 07:20 by Meek Creda MD) BMI 29.0-29.9,adult COPD (chronic obstructive pulmonary disease) History of trigger finger Incisional hernia of anterior abdominal wall without obstruction or gangrene Malignant neoplasm of hepatic flexure Status post resection and reanastomosis. Chemotherapy now in progress now Port-A-Cath in place (~2017) Surgical History Surgical History H/O hernia repair 03/07/2020: Retrorectus recurrent incarcerated hernia repair with Prolene soft mesh, THUY transverse abdominus myofascial flap advancement (3cm on left, 3cm on right) removal mesh foreign body. H/O right hemicolectomy History of rotator cuff surgery Family History Family History Mother Family history of malignant neoplasm of breast in first degree relative Social History Social History Smoking packs per day: 1.5 Smoking cigarettes per day: 30.0 Years smoked: 40 Smoking pack-years: 60.00 Smoking status: Former smoker Tobacco type: cigarettes Smoking end date: 02/21/20 Additional smoking assessment comments: pt uses chantix has smoked off and on for years, not smoking now Alcohol intake: current Drinks per week: 6 Substance use: never Substance use type: does not use Living arrangements: with family Gender identity (if verbalized by the patient): Male Spiritual care concerns: No Meds Home Medications and Allergies Home Medications Medication Instructions Recorded Confirmed Type Centrum Silver Men 1 tablet PO DAILY 05/05/19 06/01/20 History gabapentin 300 mg PO BID 09/27/19 06/01/20 History omeprazole 40 mg PO BID 02/23/20 06/01/20 History aspirin 325 mg PO DAILY 04/27/20 06/01/20 History hydrocodone-acetaminophen [[place]] 1 tablet PO Q4-6H PRN 05/26/20 05/26/20 History Allergies Allergy/AdvReac Type Severity Reaction Status Date / Time No Known Allergies Allergy Verified 06/01/20 07:12 Exam Const: Gene
--- NOTE | 2020-06-01 07:30 | WPDHPUPDATE1 ---
History and Physical Update Update Date/Time: 06/01/20 07:30 History and Physical has been reviewed, including an updated exam of the patient. There are NO changes in the patient's condition. Risks, benefits, and alternatives have been discussed and questions answered. Patient agrees to proceed with procedure.
[2020-06-01 07:39] VITALS: BP 141/80; PULSE 76; RESP 16; O2SAT 96
[2020-06-01] MEDS: LIDO 2%/EPINEPHRINE 1:100,000 20 ML VIAL INFILTRATE (07:44)
[2020-06-01 07:49] VITALS: BP 128/78; PULSE 77; RESP 16; O2SAT 98
[2020-06-01 07:59] VITALS: BP 146/80; PULSE 94; RESP 16; O2SAT 96
[2020-06-01 08:08] VITALS: BP 132/71; PULSE 99; RESP 16; O2SAT 96
--- NOTE | 2020-06-01 08:17 | PM.PROC ---
Procedure Note - Detailed Date of procedure: 06/01/20 Pre-op diagnosis: malignant neoplasm of hepatic flexure Indwelling Port-A-Cath Post-op diagnosis: same Procedure performed: Removal of Port-A-Cath Description of procedure: Prior to the procedure the patient was seen in the holding area and the area of proposed surgery was marked. All questions were answered and the patient wished to proceed with removal of the Port-A-Cath. The patient was brought to the operating room and placed supine. The entire right neck, chest, and shoulder were prepped with chlorhexidine. The area was draped off. Time-out was performed confirming patient and site of surgery. Following this a 15 blade knife was used to make incision directly on the scar from the previous port placement. This was done after infiltrating local anesthetic into the area of and inferior to the scar and into the area of the pocket containing the port to some degree using 1% xylocaine with epinephrine. Following this we carefully dissected down to the junction of the port and catheter. Bovie cautery with needle-tip was used to carefully incise the capsule around the port and free up the scar tissue around the junction of the port and catheter. Two Prolene sutures that were holding the port to the underlying fascia were carefully excised with a 15 blade knife and mosquito hemostats. Following this the port was brought up and out of the pocket. Then watching the patient's respirations I carefully removed the catheter in one smooth pull while applying pressure in the lower right neck area at the catheter exit site as the patient was breathing out. Pressure was held for 1 minute. I used Bovie cautery on some the subcutaneous tissues as we waited for good clotting. Again hemostasis was checked in the wound using Bovie cautery for superficial hemostasis in the subcutaneous tissues. Following this closure was obtained with 2 layers. I used buried subcutaneous sutures of 3-0 Vicryl in the subcutaneous layer followed by a running subcuticular closure of 4-0 Monocryl on the skin. Patient tolerated the procedure well. Estimated blood loss was 3 cc. Sponge, needle, and instrument counts were correct at the end the procedure and patient was taken to the outpatient recovery area in good condition. Anesthesia: local ( 2% xylocaine with epinephrine) Surgeon: Meek Cerda MD Equipment Operator/Laborer/Supervisor: none Drains: No Packing: No Pathology: none sent Complications: No immediate complications Condition: stable Disposition: other ( outpatient recovery area) Findings: unremarkable port and catheter that were intact.
[2020-06-01 08:20] VITALS: BP 145/72; PULSE 80; RESP 14; O2SAT 98
== END 2020-06-01 08:32 | disposition home or self-care (01) ==
PROVIDERS: PCP Family Medicine; Visit Provider Surgery
PROC: (CPT 36589; principal; 2020-06-01 07:30)
DX: Z45.2 Encounter for adjustment and management of vascular access device (principal); Z85.038 Personal history of other malignant neoplasm of large intestine; J44.9 Chronic obstructive pulmonary disease, unspecified; Z87.891 Personal history of nicotine dependence; K21.9 Gastro-esophageal reflux disease without esophagitis; E66.9 Obesity, unspecified; Z68.30 Body mass index [BMI] 30.0-30.9, adult
CPT/HCPCS: 36590

== ENCOUNTER 2020-06-19 07:35 | Outpatient (CLI) | payer BC, SELFPAY ==
--- NOTE | ~2020-06-19 | CT_ITS ---
EXAMINATION: CT abdomen pelvis w con DATE: 06/19/2020 08:23 INDICATION: Malignant neoplasm hepatic flexure colon; status post right partial colectomy one year ag o. Constipation, diarrhea. TECHNIQUE: Computed tomography (CT) of the abdomen and pelvis was performed with 100 cc Omnipaque 350 intravenous contrast. Automated exposure control and iterative reconstruction technique were employe d. Exam dose: 733.12 mGy-cm total exam DLP. COMPARISON: 01/10/2020 CT abdomen pelvis FINDINGS: The lung bases are clear of infiltrate or consolidation. Normal heart size. No pericardial or pleural effusion. Diffuse hepatic steatosis. No hepatic, splenic, pancreatic, and adrenal or renal space-occupying mass lesion is detected. The gallbladder is present. No bile duct or pancreatic duct dilatation. No urina ry tract calculus or hydroureteronephrosis. There is a retroaortic left renal vein. Normal caliber but atherosclerotic calcification of the abdom inal aorta and iliac arteries. No intraperitoneal or retroperitoneal or pelvic mass lesion or adenopa thy or ascites. There are mild prostate enlargement as well as multiple prostate calcifications. The urinary bladder is unremarkable. Small fat-containing left inguinal hernia. Status post right colectomy; no bowel obstruction, bowel wall thickening, pneumatosis or intraperiton eal free air is detected. No suspicious osteolytic or osteoblastic lesions. IMPRESSION: Status post right colectomy for colon cancer; no metastatic disease is identified Hepatic steatosis Reviewed, dictated and finalized at [facility]. Reviewed, dictated and finalized at [facility]. EDORING SUPERINTENDENT IMPRESSION: Status post right colectomy for colon cancer; no metastatic diseas e is identified Hepatic steatosis
[2020-06-19 08:00] LABS: Estimated Glomerular Filt Rate > 60
== END 2020-06-19 07:36 | disposition home or self-care (01) ==
LOC: CHSIMG 07:36
PROVIDERS: PCP Family Medicine; Visit Provider Internal Medicine Hematology & Oncology
DX: C18.3 Malignant neoplasm of hepatic flexure (principal)
CPT/HCPCS: 74177; Q9965

== ENCOUNTER 2021-05-08 08:18 | Outpatient (CLI) | payer BC, SELFPAY ==
--- NOTE | ~2021-05-08 | XR_ITS ---
XR lumbar spine 2-3V DATE: 05/08/2021 08:41 INDICATION: Low back pain for 6 days TECHNIQUE: AP, lateral, coned lateral lumbosacral views COMPARISON: None FINDINGS: There is normal alignment of the lumbar spine. There is mild to moderate degenerative disc disease throughout the lumbar spine. No fracture or bone destruction, spondylolisthesis. The lumbar p edicles are intact. The sacral iliac joints are intact. Radiopaque bowel sutures overlie the left upper quadrant of the abdomen. IMPRESSION: Mild to moderate degenerative disc disease of lumbar spine. Reviewed, dictated and finalized at [facility]. ER CUTTER
== END 2021-05-08 08:19 | disposition home or self-care (01) ==
LOC: CHSIMG 08:21
PROVIDERS: PCP Family Medicine; Visit Provider Family Medicine
DX: M54.50 Low back pain, unspecified (principal)
CPT/HCPCS: 72100

== ENCOUNTER 2021-05-28 08:18 | Outpatient (CLI) | payer BC, SELFPAY ==
[2021-05-28 08:34] LABS: Basophils Absolute Auto 0.1 K/mm3 (0.0-0.1); Basophils Percent Auto 1.2 % (0.2-1.2); Eosinophils Absolute Auto 0.3 K/mm3 (0-0.3); Eosinophils Percent Auto 3.7 % (0-4.4); Hematocrit 48.3 % (42.0-52.0); Hemoglobin 16.5 g/dL (14.0-18.0); Immature Granulocyte Absolute 0.03 K/mm3 (0.00-0.031); Immature Granulocyte Percent A 0.4 % (0-0.5); Lymphocytes Percent Auto 26.2 % (18.3-44.2); Mean Corpuscular HGB Conc 34.2 g/dl (32-36); Mean Corpuscular Hemoglobin 34.3 pg (26-34); Mean Corpuscular Volume 100.4 fl (80-100); Mean Platelet Volume 9.2 fl (7.4-10.4); Monocytes Absolute Auto 0.6 K/mm3 (0.1-0.6); Monocytes Percent Auto 7.7 % (2.6-8.5); Neutrophils Absolute Auto 4.4 K/mm3 (1.3-6.7); Neutrophils Percent Auto 60.8 % (45.5-73.1); Platelet Count Result 191 k/mm3 (150-375); Red Blood Count 4.81 M/mm3 (4.6-6.20); Red Cell Distribution Width 12.6 % (11.5-14.5); White Blood Count 7.3 K/mm3 (4.5-10.0)
[2021-05-28 11:02] LABS: Alanine Aminotransferase 17 U/L (4-50); Albumin Level 4.3 g/dL (3.5-5.1); Alkaline Phosphatase 85 U/L (38-126); Anion Gap 6 mmol/L (8-16); Aspartate Amino Transferase 25 U/L (17-59); Bilirubin,Total 0.4 mg/dL (0.2-1.3); Blood Urea Nitrogen 8 mg/dL (9-20); Carbon Dioxide 28 mmol/L (22-30); Chloride 100 mmol/L (98-107); Estimated Glomerular Filt Rate > 60; Glucose 110 mg/dL (65-110); Potassium 4.3 mmol/L (3.4-5.0); Sodium 134 mmol/L (137-145)
[2021-05-28 11:29] LABS: Carcinoembryonic Antigen 3.5 ng/mL (0.0-3.0)
== END 2021-05-28 08:19 | disposition home or self-care (01) ==
LOC: ANHLAB 08:21
PROVIDERS: PCP Family Medicine; Visit Provider Internal Medicine Hematology & Oncology
DX: C18.3 Malignant neoplasm of hepatic flexure (principal)
CPT/HCPCS: 36415; 80053; 82378; 85025

== ENCOUNTER 2021-10-19 10:44 | Outpatient (CLI) | payer BC, SELFPAY ==
--- NOTE | ~2021-10-19 | XR_ITS ---
EXAMINATION: XR chest 2V DATE: 10/19/2021 11:29 INDICATION: Upper respiratory infection. Shortness of breath. TECHNIQUE: Frontal and lateral views of the chest were obtained. COMPARISON: Chest single view 04/29/2019 FINDINGS: The chest demonstrates clear lungs without pneumonia, pleural effusion, or pneumothorax. Th e heart size is normal. There are old healed right rib fractures. There is plate and screw fixation o f left clavicle. IMPRESSION: 1. No acute cardiopulmonary disease. Reviewed, dictated and finalized at location [facility].
== END 2021-10-19 10:45 | disposition home or self-care (01) ==
LOC: CHSIMG 10:48
PROVIDERS: PCP Family Medicine; Visit Provider Nurse Practitioner Family
DX: J06.9 Acute upper respiratory infection, unspecified (principal); R09.89 Other specified symptoms and signs involving the circulatory and respiratory systems; R06.02 Shortness of breath
CPT/HCPCS: 71046

== ENCOUNTER 2022-05-13 08:54 | Outpatient (CLI) | payer BC, SELFPAY ==
[2022-05-13 09:14] LABS: Basophils Absolute Auto 0.09 K/mm3 (0.00-0.10); Basophils Percent Auto 1.7 % (0.0-1.0); Eosinophils Absolute Auto 0.18 K/mm3 (0.02-0.50); Eosinophils Percent Auto 3.3 % (1.0-6.0); Hematocrit 46.5 % (40.0-54.0); Immature Granulocyte Absolute 0.03 K/mm3 (0.00-0.00); Immature Granulocyte Percent A 0.6 % (0.0-0.0); Lymphocytes Absolute Auto 1.77 K/mm3 (1.10-4.50); Lymphocytes Percent Auto 32.9 % (18.0-42.0); Mean Corpuscular HGB Conc 34.4 g/dL (32.0-36.0); Mean Corpuscular Hemoglobin 35.2 pg (27.0-31.0); Mean Corpuscular Volume 102.4 fL (78.0-102.0); Mean Platelet Volume 9.4 fl (8.7-11.0); Monocytes Absolute Auto 0.31 K/mm3 (0.10-0.90); Monocytes Percent Auto 5.8 % (2.0-11.0); Neutrophils Percent Auto 55.7 % (50.0-70.0); Platelet Count Result 165 K/mm3 (150-420); Red Blood Count 4.54 M/mm3 (4.70-6.10); Red Cell Distribution Width 13.1 % (11.6-14.4); White Blood Count 5.4 K/mm3 (4.8-10.8)
[2022-05-13 10:36] LABS: Alanine Aminotransferase 27 U/L (16-63); Albumin Level 3.8 g/dL (3.4-5.0); Alkaline Phosphatase 58 U/L (46-116); Anion Gap 10 mmol/L (8-16); Aspartate Amino Transferase 18 U/L (15-37); Bilirubin,Total 0.3 mg/dL (0.00-1.00); Blood Urea Nitrogen 11 mg/dL (7-18); Calcium 8.3 mg/dL (8.5-10.1); Carbon Dioxide 27 mmol/L (21-32); Chloride 109 mmol/L (98-108); Estimated Glomerular Filt Rate > 60; Glucose 87 mg/dL (70-99); Osmolality Calculated 300 mOsm/kg (285-295); Potassium 4.6 mmol/L (3.5-5.1); Sodium 146 mmol/L (136-145); Total Protein 6.7 g/dL (6.4-8.2)
[2022-05-17 06:32] LABS: Carcinoembryonic Antigen 2.7 ng/mL (0.0-2.4)
== END 2022-05-13 08:55 | disposition home or self-care (01) ==
LOC: CHSLAB 08:58
PROVIDERS: PCP Family Medicine; Visit Provider Internal Medicine Hematology & Oncology
DX: C18.3 Malignant neoplasm of hepatic flexure (principal)
CPT/HCPCS: 36415; 80053; 82378; 85025

== ENCOUNTER 2022-11-19 10:08 | Outpatient (CLI) | payer BC, SELFPAY ==
[2022-11-19 10:35] LABS: Basophils Absolute Auto 0.08 K/mm3 (0.00-0.10); Basophils Percent Auto 1.4 % (0.0-1.0); Eosinophils Absolute Auto 0.05 K/mm3 (0.02-0.50); Eosinophils Percent Auto 0.9 % (1.0-6.0); Hematocrit 46.5 % (40.0-54.0); Hemoglobin 16.1 g/dL (14.0-18.0); Immature Granulocyte Absolute 0.02 K/mm3 (0.00-0.00); Immature Granulocyte Percent A 0.3 % (0.0-0.0); Lymphocytes Absolute Auto 1.51 K/mm3 (1.10-4.50); Lymphocytes Percent Auto 26.1 % (18.0-42.0); Mean Corpuscular HGB Conc 34.6 g/dL (32.0-36.0); Mean Corpuscular Hemoglobin 35.1 pg (27.0-31.0); Mean Corpuscular Volume 101.3 fL (78.0-102.0); Mean Platelet Volume 9.5 fl (8.7-11.0); Monocytes Absolute Auto 0.28 K/mm3 (0.10-0.90); Monocytes Percent Auto 4.8 % (2.0-11.0); Neutrophils Absolute Auto 3.8 K/mm3 (1.7-7.2); Neutrophils Percent Auto 66.5 % (50.0-70.0); Platelet Count Result 178 K/mm3 (150-420); Red Blood Count 4.59 M/mm3 (4.70-6.10); Red Cell Distribution Width 12.7 % (11.6-14.4); White Blood Count 5.8 K/mm3 (4.8-10.8)
[2022-11-19 11:30] LABS: Alanine Aminotransferase 46 U/L (16-63); Alkaline Phosphatase 63 U/L (46-116); Anion Gap 12 mmol/L (8-16); Aspartate Amino Transferase 32 U/L (15-37); Bilirubin,Total 0.3 mg/dL (0.00-1.00); Blood Urea Nitrogen 9 mg/dL (7-18); Calcium 8.4 mg/dL (8.5-10.1); Carbon Dioxide 28 mmol/L (21-32); Chloride 103 mmol/L (98-108); Estimated Glomerular Filt Rate > 60; Glucose 74 mg/dL (70-99); Osmolality Calculated 293 mOsm/kg (285-295); Potassium 4.5 mmol/L (3.5-5.1); Sodium 143 mmol/L (136-145); Total Protein 6.8 g/dL (6.4-8.2)
[2022-11-23 05:07] LABS: Carcinoembryonic Antigen 2.5 ng/mL (0.0-2.4)
== END 2022-11-19 10:09 | disposition home or self-care (01) ==
PROVIDERS: PCP Family Medicine; Visit Provider Internal Medicine Hematology & Oncology
DX: C18.3 Malignant neoplasm of hepatic flexure (principal)
CPT/HCPCS: 36415; 80053; 82378; 85025

== ENCOUNTER 2023-02-25 08:43 | Emergency (ER) | payer BC, SELFPAY ==
--- NOTE | ~2023-02-25 | XR_ITS ---
EXAMINATION: [id number] DATE: 02/25/2023 09:18 INDICATION: Left chest pain with deep inspiration post fall TECHNIQUE: PA view of the chest and 4 views of the left ribs were obtained. COMPARISON: Chest radiograph dated 10/19/2021 FINDINGS: Acute fracture lateral left seventh rib with one cortical width displacement. Additional unchanged ol d healed fractures of the posterior left sixth and seventh ribs and posterior right third and fourth ribs. There is a very small left pneumothorax as well as a small amount of left chest wall soft tissu e gas adjacent to the rib fracture. Focal airspace opacity in the lateral left lower lung zone. Right lung remains clear. No pleural effusion or right-sided pneumothorax. Heart size is normal. Plate and screw fixation of an old healed left clavicle fracture. IMPRESSION: 1. Mildly displaced lateral left seventh rib fracture with very small left pneumothorax. 2. Mild airspace opacity in the lateral left lower lung zone adjacent to the rib fracture with differ ential including pulmonary contusion, atelectasis versus less likely pneumonia. Dr. Leggett discusse d these findings with Dr. Craft at 9:25 AM. Reviewed, dictated and finalized at location A. IMPRESSION: 1. Mildly displaced lateral left seventh rib fracture with very small left pneu mothorax. 2. Mild airspace opacity in the lateral left lower lung zone adjacent to the ri b fracture with differential including pulmonary contusion, atelectasis versus less likely pneumonia. Dr. Leggett discussed these findings with Dr. Craft at 9:25 AM.
[2023-02-25 08:47] VITALS: BP 164/109; PULSE 76; RESP 20; TEMP 36.6; O2SAT 96
--- NOTE | 2023-02-25 08:54 | ED.FALL ---
HPI - Fall General Chief Complaint: Fall Stated Complaint: L rib pain/fall bathtub Time Seen by Provider: 02/25/23 08:46 Source: patient Mode of arrival: ambulatory Limitations: no limitations History of Present Illness HPI Narrative: Patient is 62-year-old male with a fall yesterday climbing into the bathtub. Patient injured his left lower ribcage. complaint: fall Onset (ago): day(s) (1) Fall from: standing Fall witnessed: no Place fall occurred: home Loss of consciousness: none Prolonged down time: no Symptoms prior to fall: none Context: tripped/slipped Location of injury: chest Severity: moderate Severity scale (1-10): 8 Quality: sharp Associated symptoms (after fall): denies Related Data Home Medications Medication Instructions Recorded Confirmed [id number] 300 mcg-K 60 1 tablet PO DAILY 05/05/19 02/25/23 mcg-lycop 600 mcg-lutein 300 mcg tablet (Centrum Silver Men) aspirin 325 mg tablet 325 mg PO DAILY 04/27/20 02/25/23 Allergies Allergy/AdvReac Type Severity Reaction Status Date / Time No Known Allergies Allergy Verified 02/25/23 08:49 Review of Systems Review of Systems: All systems reviewed & are unremarkable except as noted in HPI and below Constitutional: Constitutional: Reports no additional constitutional complaints Eyes: Eyes: Reports no additional eye complaints ENT: Reports system reviewed and no additional complaints, except as documented Cardiovascular: Cardiovascular: Reports no additional cardiovascular complaints Respiratory: Respiratory: Reports no additional respiratory complaints Gastrointestinal: Gastrointestinal: Reports no additional gastrointestinal complaints Genitourinary: Genitourinary: Reports no additional male genitourinary complaints Musculoskeletal: Musculoskeletal: Reports no additional musculoskeletal complaints Integumentary/Breasts: Skin/Breast: Reports system reviewed and no additional complaints, except as docu Neurologic: Reports system reviewed and no additional complaints, except as documented Psychiatric: Psychiatric: Reports no additional psychiatric complaints Endocrine: Endocrine: Reports no additional endocrine complaints Hematologic/Lymphatic: Hematologic/Lymphatic: Reports no additional hematologic/lymphatic complaints Allergic/Immunologic: Allergic/Immunologic: Reports no additional allergic/immunologic complaints [facility] Past Medical History Medical History BMI 29.0-29.9,adult COPD (chronic obstructive pulmonary disease) History of trigger finger Incisional hernia of anterior abdominal wall without obstruction or gangrene Malignant neoplasm of hepatic flexure Status post resection and reanastomosis. Chemotherapy now in progress now Port-A-Cath in place (~2018) Surgical History Surgical History H/O hernia repair 03/07/2020: Retrorectus recurrent incarcerated hernia repair with Prolene soft mesh, THUY transverse abdominus myofascial flap advancement (3cm on left, 3cm on right) removal mesh foreign body. H/O right hemicolectomy History of rotator cuff surgery Family History Family History Mother Family history of malignant neoplasm of breast in first degree relative Social History Social History Smoking packs per day: 1.5 Smoking cigarettes per day: 30.0 Years smoked: 40 Smoking pack-years: 60.00 Tobacco type: cigarettes Smoking end date: 02/21/20 Additional smoking assessment comments: pt uses chantix has smoked off and on for years, not smoking now Alcohol intake: current Drinks per week: 6 Substance use: never Substance use type: does not use Living arrangements: with family Gender identity (if verbalized by the patient): Male Spiritual care concerns: No Exam Con
[2023-02-25] MEDS: KETOROLAC (*BKC) 60 MG/2 ML VIAL IM (08:59)
[2023-02-25] MEDS: oxyCODONE/ACETAMINOPHEN (*CRX) 10-325 MG TABLET 1 TAB PO (09:56)
[2023-02-25 10:33] VITALS: RESP 20
== END 2023-02-25 10:37 | disposition home or self-care (01) ==
PROVIDERS: Emergency Provider Emergency Medicine; PCP Family Medicine
DX: S22.32XA Fracture of one rib, left side, initial encounter for closed fracture (principal); S27.0XXA Traumatic pneumothorax, initial encounter; J44.9 Chronic obstructive pulmonary disease, unspecified; F17.210 Nicotine dependence, cigarettes, uncomplicated; Z79.82 Long term (current) use of aspirin; W18.2XXA Fall in (into) shower or empty bathtub, initial encounter; Y92.002 Bathroom of unspecified non-institutional (private) residence as the place of occurrence of the external cause
CPT/HCPCS: 71101; 96372; 99283; A9270; J1885

== ENCOUNTER 2023-02-26 08:46 | Outpatient (CLI) | payer BC, SELFPAY ==
--- NOTE | ~2023-02-26 | XR_ITS ---
EXAMINATION: XR chest 2V DATE: 02/26/2023 09:17 INDICATION: Traumatic pneumothorax. TECHNIQUE: Frontal and lateral views of the chest were obtained. COMPARISON: Chest 2 views 10/19/2021, chest single view 02/25/2023 FINDINGS: There is no pneumonia or pneumothorax. There is blunting of left posterior costophrenic ang le. The heart size is normal. There is plate and screw fixation of left clavicle. There is old healed rib fractures bilaterally. There is gas in left lateral chest wall. IMPRESSION: 1. No pneumothorax. 2. Blunting of left posterior costophrenic angle, consistent with scarring versus tiny pleural effusi on. Reviewed, dictated and finalized at location A. IMPRESSION: 1. No pneumothorax. 2. Blunting of left posterior costophrenic angle, consistent with scarring vers us tiny pleural effusion.
== END 2023-02-26 08:47 | disposition home or self-care (01) ==
LOC: CHSIMG 08:49
PROVIDERS: PCP Family Medicine; Visit Provider Family Medicine
DX: R91.8 Other nonspecific abnormal finding of lung field (principal)
CPT/HCPCS: 71046

== ENCOUNTER 2023-02-27 12:01 | Outpatient (CLI) | payer BC, SELFPAY ==
--- NOTE | ~2023-02-27 | XR_ITS ---
EXAMINATION: XR ribs LT 2V w CXR 2V INDICATION: Shortness of breath, pleural effusion TECHNIQUE: PA and lateral views of the chest and 3 views of the left ribs were obtained. COMPARISON: 02/26/2023 FINDINGS: There is a small left pleural effusion with slight increase in size. There are minimal asso ciated airspace opacities of the left lung base. No pneumothorax is identified. The cardiomediastinal silhouette is normal. There are acute, minimally displaced bilateral fractures of the left seventh a nd eighth ribs There is mild thoracic spondylosis. There is plate and screw fixation of the left clav icle. There are healed left-sided rib fractures. IMPRESSION: 1. Acute fractures of the left seventh and eighth ribs. 2. Small left pleural effusion with slight increase in size. 3. Left basilar airspace opacity, likely atelectasis. Reviewed, dictated and finalized at location L.
== END 2023-02-27 12:02 | disposition home or self-care (01) ==
LOC: CHSIMG 12:02
PROVIDERS: PCP Family Medicine; Visit Provider Family Medicine
DX: R06.02 Shortness of breath (principal); S22.42XA Multiple fractures of ribs, left side, initial encounter for closed fracture; J90 Pleural effusion, not elsewhere classified; R91.8 Other nonspecific abnormal finding of lung field
CPT/HCPCS: 71046; 71100

== ENCOUNTER 2023-03-11 08:59 | Outpatient (CLI) | payer BC, SELFPAY ==
--- NOTE | ~2023-03-11 | CT_ITS ---
EXAMINATION: CT diagnostic chest wo con DATE: 03/11/2023 09:14 INDICATION: FX of rib-7th L side, hypoxia,CP,SEVERE SOB TECHNIQUE: Computed tomography (CT) of the chest was performed without intravenous contrast. Addition al 3D reconstructions utilizing coronal maximum intensity projection (MIP) were performed. Automated exposure control and iterative reconstruction technique were employed. The dose-length product was 22 4.01 mGy-cm. COMPARISON: None FINDINGS: Moderate-sized left hydropneumothorax with relatively equivalent amounts of gas and fluid. There is p artial collapse of the lingula with additional atelectasis at the basilar left lower lobe along the p osterior left upper lobe. Lateral margin of the lingula appears tethered to the parietal pleura along the fractured lateral left sixth rib. There are additional fractures of the left fifth-ninth ribs. R ight lung is clear. No pulmonary edema or right-sided pleural effusion or pneumothorax. Heart size is normal. No mediastinal shift to suggest tension etiology. Small amount of atherosclerotic coronary a rtery calcific lesion. No pericardial effusion. Thoracic aorta is normal in caliber. No pathologicall y enlarged thoracic lymphadenopathy. Diffuse hepatic steatosis. Mild thoracic spondylosis. Old healed left clavicle fracture with plate and screw fixation. IMPRESSION: 1. Multiple left-sided rib fractures with moderate-sized left hydropneumothorax and compensatory atel ectasis in the left lung which has progressed since the prior radiographs. Reviewed, dictated and finalized at location A. IMPRESSION: 1. Multiple left-sided rib fractures with moderate-sized left hydropneumothorax and compensatory atelectasis in the left lung which has progressed since the p rior radiographs.
== END 2023-03-11 09:00 | disposition home or self-care (01) ==
PROVIDERS: PCP Family Medicine; Visit Provider Family Medicine
DX: S22.42XA Multiple fractures of ribs, left side, initial encounter for closed fracture (principal); J94.8 Other specified pleural conditions
CPT/HCPCS: 71250

== ENCOUNTER 2023-05-05 14:33 | Emergency (ER) | payer BC, SELFPAY ==
[2023-05-05] VITALS (24 sets, daily range): BP systolic 147–170; BP diastolic 85–131; PULSE 68–100; RESP 14–23; TEMP 36.6–36.9; O2SAT 93–99
--- NOTE | ~2023-05-05 | CT_ITS ---
EXAMINATION: CTA chest PE protocol DATE: 05/05/2023 15:46 INDICATION: Chest pain, shortness of breath. Recent hospitalization. TECHNIQUE: Computed tomography angiography (CTA) of the chest was performed with 100 mL Omnipaque-350 intravenous contrast timed to evaluate the pulmonary arteries. Coronal maximum intensity projection 3D-reconstructions were created by the technologist. Automated exposure control and iterative reconst ruction technique were employed. Exam dose: 334.68 mGy-cm total exam DLP. COMPARISON: 03/11/2023 CT chest FINDINGS: There is diagnostic contrast enhancement of the pulmonary arteries and no evidence of pulmo nary embolism. Normal heart size. No pericardial or pleural effusion. No thoracic aortic aneurysm or dissection. No hilar or mediastinal mass lesion or lymphadenopathy. Minimal discoid atelectasis in the posterior lateral aspect of the lingula. The lungs are clear of in filtrate or consolidation. No pneumothorax. Normal morphology of the adrenal glands. Fat-containing left foramen of Bochdalek hernia. Hepatic steatosis. Plate and screws of left clavicle. Old healed posterior right third and fourth rib fractures. Healing anterior left fifth, sixth, seventh and lateral eighth and posterolateral ninth or recent rib fractures. IMPRESSION: Multiple healing left rib fractures and old posterior left third and fourth rib fracture s Minimal discoid atelectasis in the lingula subjacent to rib fracture; no pneumothorax No evidence of pulmonary embolism Reviewed, dictated and finalized at Location A. Reviewed, dictated and finalized at location B. MBLY OPERATOR IMPRESSION: Multiple healing left rib fractures and old posterior left third a nd fourth rib fractures Minimal discoid atelectasis in the lingula subjacent to rib fracture; no pneumo thorax No evidence of pulmonary embolism
--- NOTE | 2023-05-05 14:39 | ECG_ITS ---
Measurements Intervals [place] Rate: 74 P: 78 [place]: 140 QRS: 66 QRSD: 98 T: 76 QT: 341 QTc: 381 Interpretive Statements SINUS RHYTHM INCOMPLETE RIGHT BUNDLE BRANCH BLOCK BASELINE ARTIFACT- V3 BORDERLINE ECG COMPARED TO ECG 02/26/2019 11:32:32 NO SIGNIFICANT CHANGES Electronically Signed On 05-05-2023 15:01:03 CONCRETE CRAFTSMAN by Nomi Carvalho D.O.
--- NOTE | 2023-05-05 14:39 | ED.SOB ---
HPI - SOB/Dyspnea General Chief Complaint: Shortness of Breath/Dyspnea Stated Complaint: short of breath and dizzy Time Seen by Provider: 05/05/23 14:39 History of Present Illness HPI Narrative: Patient is a 62-year-old male with history of COPD, active smoking, recent traumatic pneumothorax here with shortness of breath. Patient notes that he has had some shortness of breath and a productive cough for the last 1 week. Denies fever, chills, chest pain. He has been using his nebulizer at home which seems to be helping his symptoms. Given continued symptoms, he went to see his PCP today. His PCP was worried about possible recurrence of his pneumothorax and sent in him to the ED for evaluation. Of note, patient had a fall with multiple rib fractures about 2 months ago. This was complicated by a pneumothorax and he had a chest tube placed. He was admitted to [facility]. He has been following with his PCP since discharge and was cleared to return to work about 2 weeks ago. No additional trauma. Related Data Home Medications Medication Instructions Recorded Confirmed [id number] 300 mcg-K 60 1 tablet PO DAILY 05/05/19 05/05/23 mcg-lycop 600 mcg-lutein 300 mcg tablet (Centrum Silver Men) aspirin 325 mg tablet 325 mg PO DAILY 04/27/20 05/05/23 albuterol sulfate 90 mcg/actuation 2 puff inhalation QID 05/05/23 05/05/23 aerosol inhaler Allergies Allergy/AdvReac Type Severity Reaction Status Date / Time No Known Allergies Allergy Verified 05/05/23 15:20 [facility] Past Medical History Medical History BMI 29.0-29.9,adult COPD (chronic obstructive pulmonary disease) History of trigger finger Incisional hernia of anterior abdominal wall without obstruction or gangrene Malignant neoplasm of hepatic flexure Status post resection and reanastomosis. Chemotherapy now in progress now Port-A-Cath in place (~2017) Surgical History Surgical History H/O hernia repair 03/07/2020: Retrorectus recurrent incarcerated hernia repair with Prolene soft mesh, THUY transverse abdominus myofascial flap advancement (3cm on left, 3cm on right) removal mesh foreign body. H/O right hemicolectomy History of rotator cuff surgery Family History Family History Mother Family history of malignant neoplasm of breast in first degree relative Social History Social History Smoking packs per day: 1.5 Smoking cigarettes per day: 30.0 Years smoked: 40 Smoking pack-years: 60.00 Tobacco type: cigarettes Smoking end date: 02/21/20 Additional smoking assessment comments: pt uses chantix has smoked off and on for years, not smoking now Alcohol intake: current Drinks per week: 6 Substance use: never Substance use type: does not use Living arrangements: with family Gender identity (if verbalized by the patient): Male Spiritual care concerns: No Course Course Emergency Course: Chart review performed. Patient was seen for a fall and traumatic pneumothorax on 02/25/23. Packet faxed by patient's PCP, Dr. Gomez was reviewed. Triage vitals normal. Patient seen evaluated, no acute distress. Differentials include COPD exacerbation, pneumonia, less likely ACS, PE, recurrence of his pneumothorax. Will do ACS workup breathing treatment, EKG, CT a PE study which should give us good view of the lung as well as possible PE given recent hospitalization. Lab work reviewed. CBC unremarkable. He does appear to have an DAVON with Creatinine from 0.67 on 11/19 to 1.68 today. Will give some IVF. LFTs normal. Troponin negative. COVID, Influenza, RSV all negative. PE study negative for PE or recurrence of pneumothorax. Will recheck BMP after IVF. Patient updated on all results and plan of care. Patient agreeable and
[2023-05-05 14:54] LABS: Basophils Absolute Auto 0.09 K/mm3 (0.00-0.10); Basophils Percent Auto 1.4 % (0.0-1.0); Eosinophils Absolute Auto 0.17 K/mm3 (0.02-0.50); Eosinophils Percent Auto 2.6 % (1.0-6.0); Hematocrit 46.1 % (40.0-54.0); Hemoglobin 15.5 g/dL (14.0-18.0); Immature Granulocyte Absolute 0.01 K/mm3 (0.00-0.00); Immature Granulocyte Percent A 0.2 % (0.0-0.0); Lymphocytes Absolute Auto 2.15 K/mm3 (1.10-4.50); Lymphocytes Percent Auto 33.3 % (18.0-42.0); Mean Corpuscular HGB Conc 33.6 g/dL (32.0-36.0); Mean Corpuscular Hemoglobin 34.1 pg (27.0-31.0); Mean Corpuscular Volume 101.5 fL (78.0-102.0); Mean Platelet Volume 9.1 fl (8.7-11.0); Monocytes Absolute Auto 0.59 K/mm3 (0.10-0.90); Monocytes Percent Auto 9.1 % (2.0-11.0); Neutrophils Absolute Auto 3.5 K/mm3 (1.7-7.2); Neutrophils Percent Auto 53.4 % (50.0-70.0); Platelet Count Result 192 K/mm3 (150-420); Red Blood Count 4.54 M/mm3 (4.70-6.10); Red Cell Distribution Width 13.5 % (11.6-14.4); White Blood Count 6.5 K/mm3 (4.8-10.8)
[2023-05-05 15:10] LABS: INR 0.9; Partial Thromboplastin Time 26.2 SEC (23.90-30.70); Prothrombin Time 10.3 Seconds (9.50-12.10)
[2023-05-05] MEDS: IPRATROPIUM BR 0.02% INH SOLN 0.5 MG/2.5 ML VIAL INHALATION (15:11)
[2023-05-05 15:17] LABS: Alanine Aminotransferase 41 U/L (16-63); Albumin Level 3.6 g/dL (3.4-5.0); Alkaline Phosphatase 77 U/L (46-116); Anion Gap 10 mmol/L (8-16); Aspartate Amino Transferase 29 U/L (15-37); Bilirubin,Total 0.3 mg/dL (0.00-1.00); Blood Urea Nitrogen 17 mg/dL (7-18); Calcium 9.2 mg/dL (8.5-10.1); Carbon Dioxide 31 mmol/L (21-32); Chloride 103 mmol/L (98-108); Estimated CRCL calculation 41 ml/min; Estimated Glomerular Filt Rate 42; Glucose 102 mg/dL (70-99); NT Pro B Type Natriuretic Pept 20 pg/mL (0-125); Osmolality Calculated 299 mOsm/kg (285-295); Potassium 4.1 mmol/L (3.5-5.1); Sodium 144 mmol/L (136-145); Total Protein 6.9 g/dL (6.4-8.2)
[2023-05-05 15:19] LABS: Troponin I 5.5 ng/L (0.00-60.4)
[2023-05-05 15:39] LABS: Influenza A QL RT-PCR Negative (Negative); Influenza B QL RT-PCR Negative (Negative); SARS-CoV-2 RNA PCR Negative (Negative)
[2023-05-05 15:49] LABS: RSV RNA, RT-PCR Negative (Negative)
[2023-05-05] MEDS: predniSONE 20 MG TABLET 40 MG PO (16:12)
[2023-05-05] MEDS: AMOXICILLIN/CLAVULANATE K 875-125 MG TAB 1 TABLET PO (16:12)
[2023-05-05] MEDS: SODIUM CHLORIDE 0.9% IV 1,000 ML 999 ML IV CONT (16:13)
[2023-05-05 17:44] LABS: Anion Gap 5 mmol/L (8-16); Blood Urea Nitrogen 17 mg/dL (7-18); Calcium 8.8 mg/dL (8.5-10.1); Carbon Dioxide 34 mmol/L (21-32); Chloride 103 mmol/L (98-108); Estimated CRCL calculation 48 ml/min; Estimated Glomerular Filt Rate 51; Glucose 97 mg/dL (70-99); Osmolality Calculated 295 mOsm/kg (285-295); Potassium 4.3 mmol/L (3.5-5.1); Sodium 142 mmol/L (136-145)
[2023-05-05 17:53] LABS: Troponin I 6.3 ng/L (0.00-60.4)
== END 2023-05-05 18:10 | disposition home or self-care (01) ==
PROVIDERS: Emergency Provider Student in an Organized Health Care Education/Training Program; PCP Family Medicine
DX: J44.1 Chronic obstructive pulmonary disease with (acute) exacerbation (principal); N17.9 Acute kidney failure, unspecified; Z79.82 Long term (current) use of aspirin; Z87.891 Personal history of nicotine dependence; Z20.822 Contact with and (suspected) exposure to COVID-19
CPT/HCPCS: 36415; 71275; 80048; 80053; 83735; 83880; 84484; 85025; 85610; 85730; 87637; 93005; 94640; 96360; 99284; A9270; J7030; J7512; Q9967

== ENCOUNTER 2023-05-21 07:04 | Outpatient (CLI) | payer BC, SELFPAY ==
--- NOTE | ~2023-05-21 | CT_ITS ---
CT of the Abdomen and Pelvis: Indication: Colon cancer Technique: 2.5 mm axial scans were obtained through the abdomen and pelvis following intravenous adm inistration of 100 cc of Omnipaque 350. Dose reduction technique was used on this scan by utilizing a utomated exposure control and iterative reconstruction technique. The dose-length product (DLP) was 4 19.06 mGy-cm. Comparison: 06/19/2020 Findings: Scans through the lung bases are unremarkable. There is diffuse fatty infiltration of liver. The spleen, pancreas, gallbladder, adrenals and kidneys are within normal limits. No evidence of aortic aneurysm. No lymphadenopathy. No bowel obstruction or bowel wall thickening. There is evidence of prior right partial colectomy. Images through the pelvis were performed. Possible urinary bladder wall thickening. No pelvic mass ev ident. Prostate gland mildly enlarged. No ascites. Impression: No definite evidence for metastatic disease. Diffuse fatty infiltration of liver. Prior right hemicolectomy. Possible urinary bladder wall thickening. Correlate for cystitis. Reviewed, dictated and finalized at location . CONSTRUCTION ENGINEER Impression: No definite evidence for metastatic disease. Diffuse fatty infiltration of liver. Prior right hemicolectomy. Possible urinary bladder wall thickening. Correlate for cystitis.
[2023-05-21 07:27] LABS: Basophils Percent Auto 2.1 % (0.0-1.0); Eosinophils Absolute Auto 0.15 K/mm3 (0.02-0.50); Eosinophils Percent Auto 3.1 % (1.0-6.0); Hematocrit 46.1 % (40.0-54.0); Hemoglobin 15.6 g/dL (14.0-18.0); Immature Granulocyte Absolute 0.02 K/mm3 (0.00-0.00); Immature Granulocyte Percent A 0.4 % (0.0-0.0); Lymphocytes Absolute Auto 1.64 K/mm3 (1.10-4.50); Lymphocytes Percent Auto 33.7 % (18.0-42.0); Mean Corpuscular HGB Conc 33.8 g/dL (32.0-36.0); Mean Corpuscular Hemoglobin 34.8 pg (27.0-31.0); Mean Corpuscular Volume 102.9 fL (78.0-102.0); Mean Platelet Volume 9.6 fl (8.7-11.0); Monocytes Absolute Auto 0.47 K/mm3 (0.10-0.90); Monocytes Percent Auto 9.7 % (2.0-11.0); Neutrophils Absolute Auto 2.5 K/mm3 (1.7-7.2); Platelet Count Result 171 K/mm3 (150-420); Red Blood Count 4.48 M/mm3 (4.70-6.10); Red Cell Distribution Width 13.9 % (11.6-14.4); White Blood Count 4.9 K/mm3 (4.8-10.8)
[2023-05-21 07:32] LABS: Alanine Aminotransferase 43 U/L (16-63); Albumin Level 3.8 g/dL (3.4-5.0); Alkaline Phosphatase 60 U/L (46-116); Anion Gap 7 mmol/L (8-16); Aspartate Amino Transferase 29 U/L (15-37); Bilirubin,Total 0.8 mg/dL (0.00-1.00); Blood Urea Nitrogen 11 mg/dL (7-18); Calcium 8.7 mg/dL (8.5-10.1); Carbon Dioxide 33 mmol/L (21-32); Chloride 106 mmol/L (98-108); Estimated Glomerular Filt Rate > 60; Glucose 109 mg/dL (70-99); Osmolality Calculated 302 mOsm/kg (285-295); Potassium 4.1 mmol/L (3.5-5.1); Sodium 146 mmol/L (136-145); Total Protein 7.2 g/dL (6.4-8.2)
== END 2023-05-21 07:05 | disposition home or self-care (01) ==
LOC: CHSIMG 07:06
PROVIDERS: PCP Family Medicine; Visit Provider Internal Medicine Hematology & Oncology
DX: C18.3 Malignant neoplasm of hepatic flexure (principal); K76.0 Fatty (change of) liver, not elsewhere classified; Z90.49 Acquired absence of other specified parts of digestive tract
CPT/HCPCS: 36415; 74177; 80053; 82378; 85025; Q9967

== ENCOUNTER 2023-06-12 00:59 | Day surgery (SDC) | payer BC, SELFPAY ==
[2023-05-30 08:28] VITALS: BMI 27.4
--- NOTE | 2023-06-10 08:54 | SUR.PREOP ---
Patient called regarding upcoming procedure. Message left on pt's voicemail appointment times.
[2023-06-12 06:46] VITALS: BP 144/79; PULSE 105; RESP 17; TEMP 36.5; O2SAT 95; BMI 25.7
[2023-06-12] MEDS: LACTATED RINGERS 1,000 ML 150 ML IV CONT (06:54)
--- NOTE | 2023-06-12 07:05 | WPDANESEPPF ---
Anes - Initial Pre Proc Eval Procedure: Operation Date: 06/12/23 08:00 Proposed Procedures p Colonoscopy - Rodolfo Wright MD Date/Time: 06/12/23 07:05 Surgeon: Rodolfo Wright MD Pre Op Diagnosis: Malignant Neoplasm of Hepatic Flexure Patient Data Age: 62 Gender: M Height: 1.73 m Weight: 76.7 kg Last Vital Signs Temp 36.5 C 06/12/23 06:46 Pulse 105 H 06/12/23 06:46 Resp 17 06/12/23 06:46 BP 144/79 H 06/12/23 06:46 Pulse Ox 95 06/12/23 06:46 O2 Del Method Room Air 06/12/23 06:46 Allergies Allergy/AdvReac Type Severity Reaction Status Date / Time No Known Allergies Allergy Verified 06/12/23 06:44 Home Medications Medication Instructions Recorded Confirmed Type [id number]-[id number] 300 mcg-K 60 1 tablet PO DAILY 05/05/19 06/12/23 History mcg-lycop 600 mcg-lutein 300 mcg tablet (Centrum Silver Men) aspirin 325 mg tablet 325 mg PO DAILY 04/27/20 06/12/23 History albuterol sulfate 90 mcg/actuation 2 puff inhalation QID PRN 05/05/23 06/12/23 History aerosol inhaler Shortness Of Breath Patient hx anesthesia problems: none Family hx anesthesia problems: none Results Review: All pre-operative results and documents have been reviewed as part of the pre-operative evaluation. [facility] Past Medical History Medical History BMI 29.0-29.9,adult COPD (chronic obstructive pulmonary disease) History of trigger finger Incisional hernia of anterior abdominal wall without obstruction or gangrene Malignant neoplasm of hepatic flexure Status post resection and reanastomosis. Chemotherapy now in progress now Port-A-Cath in place (~2017) Surgical History Surgical History H/O hernia repair 03/07/2020: Retrorectus recurrent incarcerated hernia repair with Prolene soft mesh, THUY transverse abdominus myofascial flap advancement (3cm on left, 3cm on right) removal mesh foreign body. H/O right hemicolectomy History of rotator cuff surgery Family History Family History Mother Family history of malignant neoplasm of breast in first degree relative Social History Social History Smoking packs per day: 1.5 Smoking cigarettes per day: 30.0 Years smoked: 40 Smoking pack-years: 60.00 Smoking status: Current every day smoker Tobacco type: cigarettes Smoking end date: 02/21/20 Additional smoking assessment comments: pt uses chantix has smoked off and on for years, not smoking now Alcohol intake: current Drinks per week: 7 Substance use: never Substance use type: does not use Living arrangements: other Additional living arrangements comments: with sp Gender identity (if verbalized by the patient): Male Spiritual care concerns: No Anes - Eval Final PreProcedure Day of Procedure 06/12/23 07:05 Patient weight: normal Heart: regular rate and rhythm Lungs: clear to auscultation Airway: Mallampati scale class II Neurological: alert and oriented Last oral intake: >/= 8 hours ASA classification: III Emergent: no Anesthetic plan: proceed Anesthesia type and monitoring: general GIVS and standard monitoring Results Review: All pre-operative results and documents have been reviewed as part of the pre-operative evaluation. Informed Consent: The patient's anesthetic plan and its attendant risks and benefits were discussed with the patient/family/POA. Questions were solicited and answers provided to the satisfaction of the patient/family/POA.
--- NOTE | 2023-06-12 07:24 | PM.HPGS ---
History of Present Illness History of Present Illness Consent: Risks, benefits, and alternatives have been discussed and questions answered. Patient agrees to proceed with procedure. Chief complaint: history of colon cancer Narrative: Wesley Colon is a 62 year old male Presents for colonoscopy. Patient has a history of a colon cancer requiring right hemicolectomy in 2018. Patient's follow-up colonoscopy 2019 was unremarkable. Patient presents today for surveillance exam. His current weight appetite and bowel movements are normal. Patient denies abdominal pain. He has had no bleeding. Family history noncontributory. He does report that his stools are frequently loose. He has no bleeding. Review of Systems Review of Systems: Review of systems noncontributory. [facility] Past Medical History Medical History BMI 29.0-29.9,adult COPD (chronic obstructive pulmonary disease) History of trigger finger Incisional hernia of anterior abdominal wall without obstruction or gangrene Malignant neoplasm of hepatic flexure Status post resection and reanastomosis. Chemotherapy now in progress now Port-A-Cath in place (~2017) Surgical History Surgical History H/O hernia repair 03/07/2020: Retrorectus recurrent incarcerated hernia repair with Prolene soft mesh, THUY transverse abdominus myofascial flap advancement (3cm on left, 3cm on right) removal mesh foreign body. H/O right hemicolectomy History of rotator cuff surgery Family History Family History Mother Family history of malignant neoplasm of breast in first degree relative Social History Social History Smoking packs per day: 1.5 Smoking cigarettes per day: 30.0 Years smoked: 40 Smoking pack-years: 60.00 Smoking status: Current every day smoker Tobacco type: cigarettes Smoking end date: 02/21/20 Additional smoking assessment comments: pt uses chantix has smoked off and on for years, not smoking now Alcohol intake: current Drinks per week: 7 Substance use: never Substance use type: does not use Living arrangements: other Additional living arrangements comments: with sp Gender identity (if verbalized by the patient): Male Spiritual care concerns: No Meds Home Medications and Allergies Home Medications Medication Instructions Recorded Confirmed Type [id number] 300 mcg-K 60 1 tablet PO DAILY 05/05/19 06/12/23 History mcg-lycop 600 mcg-lutein 300 mcg tablet (Centrum Silver Men) aspirin 325 mg tablet 325 mg PO DAILY 04/27/20 06/12/23 History albuterol sulfate 90 mcg/actuation 2 puff inhalation QID PRN 05/05/23 06/12/23 History aerosol inhaler Shortness Of Breath Allergies Allergy/AdvReac Type Severity Reaction Status Date / Time No Known Allergies Allergy Verified 06/12/23 06:44 Vital Signs Vital Signs - 24 hr 06/12/23 06:46 Temperature 97.7 F Pulse Rate 105 H Respiratory Rate 17 Blood Pressure 144/79 H Pulse Oximetry 95 Oxygen Delivery Room Air Exam Narrative: Physical exam reveals patient to be alert. Vital signs stable. HEENT exam is unremarkable. Patient is anicteric. Lungs are clear to auscultation and percussion. Heart is without murmur or extra sounds. Abdomen bowel sounds present soft nontender with no organomegaly. Digital external rectal exam is normal. Assessment and Plan Assessment and plan (1) History of colon cancer: Code(s): Z85.038 - Personal history of other malignant neoplasm of large intestine Status: Acute Assessment and Plan: Patient had a colon cancer removed from the Hepatic flexure in 2019. Plan for surveillance colonoscopy now and at 3 year intervals. Further recommendations may be given after endoscopy.
[2023-06-12 08:35] VITALS: BP 136/105; PULSE 105; RESP 23; O2SAT 98
[2023-06-12 08:45] VITALS: BP 110/75; PULSE 99; RESP 23; O2SAT 98
[2023-06-12 08:55] VITALS: BP 129/90; PULSE 85; RESP 18; O2SAT 98
== END 2023-06-12 08:59 | disposition home or self-care (01) ==
PROVIDERS: PCP Family Medicine; Referring Provider Internal Medicine Hematology & Oncology; Visit Provider Internal Medicine Gastroenterology
PROC: 0DJD8ZZ Inspection of Lower Intestinal Tract, Via Natural or Artificial Opening Endoscopic (ICD-10-PCS; CPT 45378; principal; 2023-06-12 08:00)
DX: Z08 Encounter for follow-up examination after completed treatment for malignant neoplasm (principal); D12.3 Benign neoplasm of transverse colon; K64.8 Other hemorrhoids; Z85.038 Personal history of other malignant neoplasm of large intestine; J44.9 Chronic obstructive pulmonary disease, unspecified; Z98.0 Intestinal bypass and anastomosis status; Z90.49 Acquired absence of other specified parts of digestive tract; Z87.891 Personal history of nicotine dependence; Z79.51 Long term (current) use of inhaled steroids; Z79.82 Long term (current) use of aspirin
CPT/HCPCS: 45385; 88305; J2704; J7120

== ENCOUNTER 2023-11-25 13:37 | Outpatient (CLI) | payer OTHER, SELFPAY ==
[2023-11-25 13:55] LABS: Basophils Absolute Auto 0.08 K/mm3 (0.00-0.10); Eosinophils Absolute Auto 0.15 K/mm3 (0.02-0.50); Eosinophils Percent Auto 1.8 % (1.0-6.0); Hematocrit 46.4 % (40.0-54.0); Immature Granulocyte Absolute 0.02 K/mm3 (0.00-0.00); Immature Granulocyte Percent A 0.2 % (0.0-0.0); Lymphocytes Absolute Auto 2.02 K/mm3 (1.10-4.50); Lymphocytes Percent Auto 24.9 % (18.0-42.0); Mean Corpuscular HGB Conc 34.5 g/dL (32-36); Mean Corpuscular Hemoglobin 35.2 pg (27.0-31.0); Mean Platelet Volume 9.8 fl (8.7-11.0); Monocytes Absolute Auto 0.66 K/mm3 (0.10-0.90); Monocytes Percent Auto 8.1 % (2.0-11.0); Neutrophils Absolute Auto 5.18 K/mm3 (1.70-7.20); Platelet Count Result 158 K/mm3 (150-420); Red Blood Count 4.55 M/mm3 (4.70-6.10); Red Cell Distribution Width 12.5 % (11.6-14.4); White Blood Count 8.1 K/mm3 (4.8-10.8)
[2023-11-25 14:21] LABS: Alanine Aminotransferase 32 U/L (16-63); Albumin Level 3.8 g/dL (3.4-5.0); Alkaline Phosphatase 61 U/L (46-116); Anion Gap 11 mmol/L (4-12); Aspartate Amino Transferase 22 U/L (15-37); Bilirubin,Total 0.5 mg/dL (0.00-1.00); Blood Urea Nitrogen 11 mg/dL (7-18); Calcium 8.7 mg/dL (8.5-10.1); Carbon Dioxide 28 mmol/L (21-32); Chloride 101 mmol/L (98-108); Estimated Glomerular Filt Rate > 60; Glucose 122 mg/dL (70-99); Osmolality Calculated 290 mOsm/kg (285-295); Potassium 4.3 mmol/L (3.5-5.1); Sodium 140 mmol/L (136-145); Total Protein 6.8 g/dL (6.4-8.2)
[2023-11-27 03:08] LABS: Carcinoembryonic Antigen 2.2 ng/mL
== END 2023-11-25 13:38 | disposition home or self-care (01) ==
LOC: CHSLAB 13:44
PROVIDERS: PCP Family Medicine; Visit Provider Internal Medicine Hematology & Oncology
DX: C18.3 Malignant neoplasm of hepatic flexure (principal)
CPT/HCPCS: 36415; 80053; 82378; 85025

== ENCOUNTER 2024-05-10 07:21 | Emergency (ER) | payer OTHER, SELFPAY ==
--- NOTE | ~2024-05-10 | XR_ITS ---
XR chest 1V portable Ordering provider: Megan Soni MD History: 63 years Male with . copd,EMPHYSEMA,SOB,COUGH,CHEST TIGHTNESS X1WK . Comparison: February 26, 2023 FINDINGS: MEDIASTINUM: The cardiac silhouette is not enlarged. LUNGS: No effusions or pneumothorax. Vague patchy opacities seen in the left mid zone which may indic ate early pneumonia. Follow-up advised. OTHER: No free air under the diaphragm. Old healed fractures in the left lower thorax. Postoperative changes in the left clavicle. IMPRESSION: Vague opacities in the left mid zone which may indicate early pneumonia. Follow-up advised. Reviewed, dictated and finalized at location A. RTILITY NURSE IMPRESSION: Vague opacities in the left mid zone which may indicate early pneumonia. Follow -up advised.
[2024-05-10 07:21] VITALS: BP 126/88; PULSE 82; RESP 17; TEMP 36.6; O2SAT 96
[2024-05-10 07:25] VITALS: O2SAT 95
--- NOTE | 2024-05-10 07:38 | ED.SOB ---
HPI - SOB/Dyspnea General Chief Complaint: Shortness of Breath/Dyspnea Stated Complaint: sob Time Seen by Provider: 05/10/24 07:37 Source: patient History of Present Illness HPI Narrative: 63 years old white male drove himself to the emergency room complaining of shortness of breath for 1 week, was seen by his family physician recently started on Z-Nathan which she finished last dose today, and prednisone and albuterol treatment. Patient is telling feeling tight in the chest with wheezing. He denies any fever or chills, runny nose or sneezing. Patient tested negative for COVID 1 week ago. History of COPD status post colon resection secondary to colon cancer 5 years ago. Patient smokes cigarettes, drink alcohol occasionally, no drugs Pertinent past history: COPD Related Data Home Medications Medication Instructions Recorded Confirmed [id number] 300 mcg-K 60 1 tablet PO DAILY 05/05/19 05/10/24 mcg-lycop 600 mcg-lutein 300 mcg tablet (Centrum Silver Men) aspirin 325 mg tablet 325 mg PO DAILY 04/27/20 05/10/24 albuterol sulfate 90 mcg/actuation 2 puff inhalation QID PRN 05/05/23 05/10/24 aerosol inhaler Shortness Of Breath Allergies Allergy/AdvReac Type Severity Reaction Status Date / Time No Known Allergies Allergy Verified 05/10/24 07:22 Review of Systems Review of Systems: All systems reviewed & are unremarkable except as noted in HPI and below PMFSH Past Medical History Medical History BMI 29.0-29.9,adult COPD (chronic obstructive pulmonary disease) History of trigger finger Incisional hernia of anterior abdominal wall without obstruction or gangrene Malignant neoplasm of hepatic flexure Status post resection and reanastomosis. Chemotherapy now in progress now Port-A-Cath in place (~2017) Surgical History Surgical History H/O hernia repair 03/07/2020: Retrorectus recurrent incarcerated hernia repair with Prolene soft mesh, THUY transverse abdominus myofascial flap advancement (3cm on left, 3cm on right) removal mesh foreign body. H/O right hemicolectomy History of rotator cuff surgery Family History Family History Mother Family history of malignant neoplasm of breast in first degree relative Social History Social History Smoking packs per day: 1.5 Smoking cigarettes per day: 30.0 Years smoked: 40 Smoking pack-years: 60.00 Smoking status: Current every day smoker Tobacco type: cigarettes Smoking end date: 02/21/20 Additional smoking assessment comments: pt uses chantix has smoked off and on for years, not smoking now Alcohol intake: current Drinks per week: 7 Substance use: never Substance use type: does not use Living arrangements: other Additional living arrangements comments: with sp Gender identity (if verbalized by the patient): Male Spiritual care concerns: No Exam Narrative: General appearance: Well-developed, well-nourished Skin: Normal color Head: Normocephalic, nontraumatic Eyes: Clear conjunctiva ENT: Oropharynx normal, ears normal, nose normal Neck: Supple, nontender Chest and respiratory: Airway patent, no respiratory distress, no accessory muscle use, diffuse wheezing bilaterally, diminution for entry bilaterally Heart: Regular rate/rhythm Abdomen: Soft, nontender, no organomegaly, quiet bowel sounds Vascular: Normal peripheral pulses, normal capillary refill. 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, no gross motor deficit Course Vital Signs Vital signs: Vital Signs Temperature 36.6 C 05/10/24 07:21 Pulse Rate 82 05/10/24 07:21 Respiratory Rate 17 05/10/24 07:21 Blood Pressure 126/88 05/10/24 07:21 Pulse Oximetry 96 05/10/24 07:21 Oxygen Delivery Room Air 05/10/24 07:21 Temperature 36.6 C 05/10/24 07:21 Pulse Rate 88 05/10/24 08:00 Respiratory Rate 22 H 05/10/24 08:00 Blood Pressure 126/88 05/10/24 07:21 Pulse Oximetry 96 05/10/24 08:00 Oxygen Delivery Room Air 05/10/24 07:25 MDM - SOB/Dyspnea MDM Narrative Medical decision making narrative: PATIENT CAME WITH SHORTNESS OF BREATH AND PRODUCTIVE COUGH FOR 7 DAYS, HISTORY OF COPD AND TOBACCO DEPENDENT VITAL SIGNS ARE STABLE PHYSICAL EXAMINATION SHOWING THE GENERALIZED WHEEZING BILATERALLY DIFFERENTIAL DIAGNOSIS INCLUDE PNEUMONIA, EXACERBATION OF COPD CHEST X-RAY SHOWED POSSIBLE BEGINNING OF PNEUMONIA, PATIENT RECEIVED 10 MG OF ALBUTEROL AND 1.5 MG OF IPRATROPIUM NEBULIZER WITH REMARKABLE IMPROVEMENT. DIAGNOSIS COPD EXACERBATION, PNEUMONIA DISCHARGED ON LEVAQUIN, SYMBICORT, PREDNISONE AND ALBUTEROL NEBULIZED SOLUTION 3 DAYS OF WORK STARTED TODAY THE PT WAS DISCHARGED TO HOME.THE PT,S CONDITION UPON DISCHARGE WAS FAIR,EDUCATION WAS PROVIDED TO THE PT IN REFERENCE TO THE FINAL IMPRESSION,DISCHARGE STUDY RESULTS,TREATMENT,PROGNOSIS AND NEED FOR FOLLOW UP . Differential Diagnosis Differential diagnosis: Likely other ( ABOVE) Imaging Data Radiologist's impression: Impressions Chest X-Ray 05/10/24 08:05 IMPRESSION: Vague opacities in the left mid zone which may indicate early pneumonia. Follow-up advised. Discharge Plan Discharge Clinical Impression: Acute exacerbation of chronic obstructive pulmonary disease, Community acquired pneumonia Patient Disposition: Home, Self-Care Condition: Improved Instructions: Antibiotic Form, How to Stop Smoking (ED), COPD (Chronic Obstructive Pulmonary Disease) (DC), Community Acquired Pneumonia (ED) Additional Instructions: RETURN IF SYMPTOMS ARE WORSENING , CALL YOUR FAMILY PHYSICIAN FOR APPOINTMENT, TAKE TYLENOL NEEDED FOR ACHES AND PAIN, CONTINUE HOME MEDICATIONS. Prescriptions: New budesonide-formoterol [Breyna] 160-4.5 mcg/actuation HFA aerosol inhaler 1 inh inhalation Q12H Qty: 10.2 0RF albuterol sulfate 2.5 mg /3 mL (0.083 %) solution for nebulization 2.5 mg inhalation Q6H Qty: 90 0RF prednisone 20 mg tablet 40 mg PO DAILY 5 Days Qty: 10 0RF levofloxacin 750 mg tablet 750 mg PO DAILY Qty: 7 5RF No Action albuterol sulfate 90 mcg/actuation HFA aerosol inhaler 2 puff INHALATION QID PRN (Reason: Shortness Of Breath) Centrum Silver Men 300-600-300 mcg Tablet 1 tablet PO DAILY aspirin 325 mg Tablet 325 mg PO DAILY Follow-up/Referrals: Leonardo Gomez MD [Primary Care Provider] - Stand Alone Forms: Work/School Release IP
[2024-05-10] MEDS: predniSONE 20 MG TABLET 60 MG PO (07:48)
[2024-05-10 08:00] VITALS: BP 126/94; PULSE 78; PULSE 88; RESP 16; RESP 22; O2SAT 96
[2024-05-10 08:30] VITALS: BP 128/87; PULSE 71; RESP 17; O2SAT 98
[2024-05-10] MEDS: ALBUTEROL SULFATE NEB 2.5 MG/3 ML INH 10 MG INHALATION (08:32)
[2024-05-10] MEDS: IPRATROPIUM BR 0.02% INH SOLN 0.5 MG/2.5 ML VIAL 1.5 MG INHALATION (08:39)
[2024-05-10 08:55] VITALS: PULSE 88; RESP 20; O2SAT 98
[2024-05-10 09:06] VITALS: BP 132/72; PULSE 82; RESP 17; TEMP 36.7; O2SAT 96
== END 2024-05-10 09:06 | disposition home or self-care (01) ==
PROVIDERS: Emergency Provider Emergency Medicine; PCP Family Medicine
DX: J44.1 Chronic obstructive pulmonary disease with (acute) exacerbation (principal); J18.9 Pneumonia, unspecified organism; F17.210 Nicotine dependence, cigarettes, uncomplicated; Z79.82 Long term (current) use of aspirin
CPT/HCPCS: 71045; 94640; 99283; J7512

== ENCOUNTER 2024-06-02 14:31 | Outpatient (CLI) | payer OTHER, SELFPAY ==
--- NOTE | ~2024-06-02 | CT_ITS ---
EXAMINATION:CT lung screening DATE: 06/02/2024 14:50 INDICATION: Encounter for screening for malignant neoplasms of respiratory organs. Current smoker wit h 45 pack year history. TECHNIQUE: Computed tomography (CT) of the chest was performed without intravenous contrast. Automate d exposure control and iterative reconstruction technique were employed. The dose-length product (DLP ) was 118.39 mGy-cm. COMPARISON: Chest CT 05/05/2023 FINDINGS: There is mild emphysema. There is a stable 4 mm nodule in right upper lobe. There is a stab le 5 mm nodule in left lower lobe. No pleural effusion. The heart size is normal. There are coronary artery calcifications. No pericardial effusion. There are calcifications of the aortic valve. There i s diffuse hepatic steatosis. There is plate and screw fixation of left clavicle. There are old healed bilateral rib fractures. IMPRESSION: 1. Lung-RADS category 2: Benign appearance or behavior. Continue annual screening with noncontrast lo w-dose chest CT in 12 months. Reviewed, dictated and finalized at location A. AGE ATTENDANT IMPRESSION: 1. Lung-RADS category 2: Benign appearance or behavior. Continue annual screeni ng with noncontrast low-dose chest CT in 12 months.
[2024-06-02 14:53] LABS: Basophils Absolute Auto 0.07 K/mm3 (0.00-0.10); Basophils Percent Auto 0.8 % (0.0-1.0); Eosinophils Absolute Auto 0.06 K/mm3 (0.02-0.50); Eosinophils Percent Auto 0.7 % (1.0-6.0); Hematocrit 47.9 % (40.0-54.0); Hemoglobin 16.5 g/dL (14.0-18.0); Immature Granulocyte Absolute 0.05 K/mm3 (0.00-0.00); Immature Granulocyte Percent A 0.5 % (0.0-0.0); Lymphocytes Absolute Auto 1.72 K/mm3 (1.10-4.50); Lymphocytes Percent Auto 18.8 % (18.0-42.0); Mean Corpuscular HGB Conc 34.4 g/dL (32-36); Mean Corpuscular Hemoglobin 34.2 pg (27.0-31.0); Mean Corpuscular Volume 99.2 fL (78.0-102.0); Mean Platelet Volume 9.2 fl (8.7-11.0); Monocytes Absolute Auto 0.45 K/mm3 (0.10-0.90); Monocytes Percent Auto 4.9 % (2.0-11.0); Neutrophils Percent Auto 74.3 % (50.0-70.0); Platelet Count Result 191 K/mm3 (150-420); Red Blood Count 4.83 M/mm3 (4.70-6.10); Red Cell Distribution Width 12.1 % (11.6-14.4); White Blood Count 9.2 K/mm3 (4.8-10.8)
[2024-06-02 15:36] LABS: Alanine Aminotransferase 33 U/L (16-63); Albumin Level 4.1 g/dL (3.4-5.0); Alkaline Phosphatase 77 U/L (46-116); Anion Gap 13 mmol/L (4-12); Aspartate Amino Transferase 30 U/L (15-37); Bilirubin,Total 0.6 mg/dL (0.00-1.00); Blood Urea Nitrogen 8 mg/dL (7-18); Calcium 9.4 mg/dL (8.5-10.1); Carbon Dioxide 27 mmol/L (21-32); Chloride 102 mmol/L (98-108); Estimated Glomerular Filt Rate > 60; Glucose 126 mg/dL (70-99); Osmolality Calculated 294 mOsm/kg (285-295); Potassium 4.7 mmol/L (3.5-5.1); Sodium 142 mmol/L (136-145)
[2024-06-03 08:56] LABS: Hemoglobin A1C 5.1 % (<5.7)
[2024-06-04 04:23] LABS: Carcinoembryonic Antigen 3.2 ng/mL
== END 2024-06-02 14:32 | disposition home or self-care (01) ==
PROVIDERS: PCP Family Medicine; Visit Provider Internal Medicine Hematology & Oncology
DX: Z12.2 Encounter for screening for malignant neoplasm of respiratory organs (principal); R73.01 Impaired fasting glucose; Z87.891 Personal history of nicotine dependence; C18.3 Malignant neoplasm of hepatic flexure
CPT/HCPCS: 36415; 71271; 80053; 82378; 83036; 85025

== ENCOUNTER 2024-08-24 07:02 | Outpatient (CLI) | payer OTHER, SELFPAY ==
--- NOTE | ~2024-08-24 | US_ITS ---
Limited Abdominal Sonogram: Real-time sonographic imaging of the right upper quadrant was performed. Clinical History: Diarrhea Findings: The liver appears echogenic with no evidence of mass lesion or bile duct dilatation. Main portal vein demonstrates normal direction of flow. The gallbladder is well distended, and appears nor mal with no evidence of gallstone or wall thickening. The common bile duct measures 3 mm. The visual ized pancreas, aorta, and IVC are unremarkable. Impression: Diffuse fatty infiltration of liver. Reviewed, dictated and finalized at location M. TER ELECTRONIC Impression: Diffuse fatty infiltration of liver.
--- OUTSIDE RECORDS SUMMARY | 2024-08-24 07:07 | XMS_ITS | Encounter Summary ---
Author Organization [facility] Address [address] [place] [address] Care Team Providers Care Box Bender Name Role Phone Leonardo Gomez MD Primary Care Provider [phone] Encounter Details Date Type Department Care Team (Late st Contact Info) Description 11/28/2018 Abstract SFL CONVERSION [address] [place] [address] , Generic Conversion, Social History Tobacco Use Types Packs/Day Years Used Date Smoking Tobacco: Never Assessed Sex and Gender Information Value Date Recorded Sex Assigned at Not on file Legal Sex Male 12:13 PM YARD JACKER Gender Identity Not on file Sexual Orientation Not on file documented as of this encounter Plan of Treatment Not on file documented as of this encounter Visit Diagnoses Not on filedocumented in this encounter Care Teams Box Bender Relationship Specialty Start Date End Date Leonardo Gomez MD [address] [place] [address] PCP - General FAMILY PRACTICE 02/26/24 documented as of this encounter
--- OUTSIDE RECORDS SUMMARY | 2024-08-24 07:07 | XMS_ITS | Clinical Summary ---
Author Organization [facility] (Formerly [facility])[3] Remberto Romanalfonzo Address [address] [place] [address] Care Team Providers Care Dampener Operator Name Role Phone Leonardo Gomez MD Primary Care Provider Allergies No known active allergies Medications lidocaine-priloc jacques (EMLA) 2.5-2.5 % CreamIndications :Malignant neoplasm of hepatic flexure (CMS/HCC) Apply to affected area see administration instructions. Apply to port site 30 minutes prior to access. 30 Gram 1 05/05/20 19 Active dexAMETHasone (DECADRON) 4 mg tabletIndication s:Malignant neoplasm of hepatic flexure (CMS/HCC) Take 1 Tablet (4 mg) by mouth 2 times daily. Take the day prior to chemotherapy, the day of, and the day after chemotherapy. 6 Tablet 5 05/05/20 19 Active omeprazole (PriLOSEC) 40 mg Capsule, Delayed Release(E.C.)Ind ications:Maligna nt neoplasm of colon, unspecified part of colon (CMS/HCC) Take 1 Capsule (40 mg) by mouth daily. 30 Capsule 2 10/25/19 20 Active ondansetron (Zofran) 8 mg TabletIndication s:Malignant neoplasm of hepatic flexure (CMS/HCC) Take 1 Tablet (8 mg) by mouth every 8 hours as needed for Nausea/Emesis. 90 Tablet 3 05/22/20 20 Active albuterol (PROVENTIL,LESLIE EMANUEL) 2.5 mg /3 mL (0.083 %) Solution for Nebulization 12/29/19 21 Active naproxen (NAPROSYN) 500 mg tablet 05/07/20 21 Active HYDROcodone-acet aminophen (NORCO) 5-325 mg tabletIndication s:Malignant neoplasm of hepatic flexure (CMS/HCC) Take 1 Tablet by mouth every 6 hours as needed for Pain, Moderate. Max Daily Amount: 4 Tablets 20 Tablet 07/12/19 25 Active Active Problems Problem Noted Date Diagnosed Date Colon cancer 05/31/2019 Encounters Date Type Department Care Team Description 08/11/2024 External Device Data STL ABSTRACTION Provider, Abstract 08/10/2024 External Device Data STL ABSTRACTION Provider, Abstract 07/15/2024 External Device Data ST[facility] ABSTRACTION Provider, Abstract 07/13/2024 External Device Data STL ABSTRACTION Provider, Abstract 07/12/2024 Refill [facility] (Former[facility]3] Oncology and Hematology [facility] [address] [place] [address] Alireza Bach MD Malignant neoplasm of hepatic flexure (CMS/HCC) 07/06/2024 External Device Data STL ABSTRACTION Provider, Abstract 06/29/2024 External Device Data STL ABSTRACTION Provider, Abstract 06/07/2024 10:15 AM LEARNING AND DEVELOPMENT DIRECTOR Office Visit [facility] ([facility]3] Oncology [facility] [address] [place] [address] Alireza Bach MD Malignant neoplasm of hepatic flexure (CMS/HCC) (Primary Dx) 06/07/2024 Orders Only [facility]3] Oncology [facility] [address] [place] [address] Alireza Bach MD from Last 3 Months Family History Medical History Relation Name Comments Heart Disease Father Cancer Mother Relation Name Status Comments Father Mother Alive Social History Tobacco Use Types Packs/Day Years Used Date Smoking Tobacco: Every Day Cigarettes 2 34.7 Started: 05/14/1988; Last attempted to quit: 05/14/2018 Smokeless Tobacco: Never Tobacco Cessation:Ready to Q uit: Not Asked; Counseling Given: Not Answered Alcohol Use Standard Drinks/Week Comments Yes 5 (1 standard drink = 0.6 oz pur e alcohol) Sex and Gender Information Value Date Recorded Sex Assigned at Not on file Legal Sex Male 3:01 PM CDT Gender Identity Not on file Sexual Orientation Not on file Last Filed Vital Signs Vital Sign Reading Time Taken Comments Blood Pressure 136/92 06/07/2024 11:01 AM LEARNING AND DEVELOPMENT DIRECTOR Pulse 75 06/07/2024 11:00 AM LEARNING AND DEVELOPMENT DIRECTOR Temperature 36.8 C (98.2 F) 06/07/2024 11:00 AM LEARNING AND DEVELOPMENT DIRECTOR Respiratory Rate 17 06/07/2024 11:00 AM LEARNING AND DEVELOPMENT DIRECTOR Oxygen Saturation 91% 06/07/2024 11:00 AM LEARNING AND DEVELOPMENT DIRECTOR Inhaled Oxygen Concentration - - Weight 82.6 kg (182 lb 3.2 oz) 06/07/2024 11:00 AM LEARNING AND DEVELOPMENT DIRECTOR Height 172.7 cm (5' 8 ) 12/07/2021 8:36 AM CDT Body Mass Index 27.7 12/07/2021 8:36 AM CDT Plan of Treatment Upcoming Encounters Date Type Department Care Team (Late st Contact Info) Description 12/20/2024 10:00 AM CDT Office Visit [facility] ([facility]3] Oncology and Hematology - [place] [address] [facility] [address] [place] [address] Alireza Bach MD [address] [place] [address] Health Maintenance Due Date Last Done Comments Pre-Diabetes and Diabetes Screening 1962 DTAP/TDAP/TD VACCINES (1 - Tdap) 1981 Lung Cancer Screening 2012 ZOSTER VACCINE (1 of 2) 2012 INFLUENZA VACCINE (#1) 2024 Preventative Visit- Commercial 06/23/2024 RSV VACCINE (60+ or ) (1 - 1-dose 75+ series) 2037 Procedures Procedure Name Priority Date/Time Associated Diagnosis Comments COMPREHENSIVE METABOLIC PANEL Routine 06/02/2024 11:48 AM LEARNING AND DEVELOPMENT DIRECTOR from Last 3 Months Results * COMPREHENSIVE METABOLIC PANEL (06/02/2024 11:48 AM LEARNING AND DEVELOPMENT DIRECTOR) Blood us Alireza Bach MD CHEMISTRY ORDERABLES Final Resu lt from Last 3 Months Insurance [facility] CHO[facility] [id number] Care Teams Dampener Operator Relationship Specialty Start Date End Date Leonardo Gomez MD [address] [place] [id number] PCP - General Family Practice 03/29/19
--- OUTSIDE RECORDS SUMMARY | 2024-08-24 07:07 | XMS_ITS | Continuity of Care Document ---
Author Organization [facility] Address [address] [place] [address] Phone Care Team Providers Care Staff Attorney Name Role Phone Charlie Ang MD Unavailable Unavailable Allergies, Adverse Reactions, Alerts Substance Reaction Status [...] Diagnoses Date Provider Providers Copied on Encounter [facility], [address] [place], [place] [address], [id number], [place] [phone] [facility] No Information 7 Ashia Guerra. [address] [place] [address], [place], [place], [id number] , [place]. tel: [phone] Independent Medical Examination [facility], [address], [place], [place], [id number], [place] tel:[phone] [facility] left shoulder (chief complaint) Pain in left shoulder [address]. [address], [address], [place], [place], [id number] , [place]. tel: [phone] Family History Family Member Type Diagnosis Age At Onset Problem (finding) No family history of Di abetes mellitus Father Problem (finding) hypertension Father Problem (finding) stroke Immunizations Vaccine Date Status Comments Flu (split) (3 yrs or older) refused Source: Other Provider Payers Payer name Insurance type Covered republican ID Tyler zaragoza(s) Susana Howe [id number] Social History Type Description Quantity Date Captured [...]
--- OUTSIDE RECORDS SUMMARY | 2024-08-24 07:07 | XMS_ITS | Clinical Summary ---
Author Organization [facility] Address [address] [place] [address] Care Team Providers Care Processing Technician Name Role Phone Leonardo Gomez MD Primary Care Provide r Allergies No known active allergies Medications acetaminophen 500 mg capsule Take 2 capsules (1,000 mg total) by mouth every 6 (six) hours as needed for pain 60 capsule 3 Active lidocaine (LIDODERM) 5 % Place 2 patches on the skin daily Remove & discard patch within 12 hours or as directed by MD. 10 patch 3 Active Additional Information Patient not taking.Reported on 04/02/2023 methocarbamoL (ROBAXIN) 750 mg tablet Take 1 tablet (750 mg total) by mouth 3 (three) times a day 30 tablet 3 Active Additional Information Patient not taking.Reported on 04/02/2023 senna-docusate (PERICOLACE) 8.6-50 mg Take 2 tablets by mouth 2 (two) times a day 30 tablet 3 Active albuterol HFA (PROVENTIL HFA,VENTOLIN HFA,PROAIR HFA) 90 mcg/actuation inhaler Inhale 2 puffs every 4 (four) hours as needed 3 Active varenicline tartrate (CHANTIX) 1 mg tabletIndicatio ns:Smoking Cessation Take 1 tablet (1 mg total) by mouth 2 (two) times a day Take with full glass of water. Active Active Problems Problem Noted Date Diagnosed Date Closed fracture of multiple ribs of left side with routine healing 04/02/2023 Hemopneumothorax on left 03/11/2023 Surgical History Surgery Date Site/Laterality Comments COLECTOMY 06/23/2018 - 06/22/2019 CLAVICLE SURGERY Social History Tobacco Use Types Packs/Day Years Used Date Smoking Tobacco: Every Day Cigarettes Tobacco Cessation:Ready to Q uit: Not Asked; Counseling Given: Not Answered AUDIT-C Answer Date Recorded Q1: How often do you have a drink containing alcohol? 4 or more times a week 04/02/2023 Q2: How many drinks containi ng alcohol do you have on a typical day when you are drinking? 1 or 2 Q3: How often do you have si x or more drinks on one occasion? Less than monthly 04/02/2023 Hunger Vital Sign Answer Date Recorded Within the past 12 months, y ou worried that your food would run out before you got the money to buy more. Never true 04/02/20 23 Within the past 12 months, t he food you bought just didn't last and you didn't have money to get more. Never true 04/02/2023 Personal Safety Answer Date Recorded Getting School Help Needed Not on file 04/05 Sex and Gender Information Value Date Recorded Sex Assigned at Not on file Legal Sex Male 6:35 AM ACQUISITION EDITOR Gender Identity Not on file Sexual Orientation Not on file Obstetrics History Last Filed Vital Signs Vital Sign Reading Time Taken Comments Blood Pressure 153/95 04/02/2023 9:08 AM CDT Pulse 87 04/02/2023 9:08 AM CDT Temperature 36.5 C (97.7 F) 04/02/2023 9:08 AM CDT Respiratory Rate 18 04/02/2023 9:08 AM CDT Oxygen Saturation 95% 04/02/2023 9:08 AM CDT Inhaled Oxygen Concentration - - Weight 79.4 kg (175 lb) 04/02/2023 9:08 AM CDT Height 172.7 cm (5' 8 ) 04/02/2023 9:08 AM CDT Body Mass Index 26.61 04/02/2023 9:08 AM CDT Plan of Treatment Health Maintenance Due Date Last Done Comments Colon Cancer Screening-Colonoscopy 1962 Depression Screening 1962 Hepatitis C Screening 1962 Prostate Cancer Screening-PSA 1962 DTaP/Tdap/Td Vaccine (1 - Tdap) 1973 Hepatitis B Screening 1980 Regular Well Visit/Exam 18-64 1980 Pneumococcal vaccine <65 (1 of 2 - PCV) 1981 Zoster Vaccine (1 of 2) 2012 Influenza Vaccine (#1) 2024 Insurance [employer] Advance Directives For more information, please contact: [phone] * Full Code (Latest Code Status on File) Date Activated Date Inactivated Comments 03/12/2023 3:52 PM 03/14/2023 8:07 PM Care Teams Processing Technician Relationship Specialty Start Date End Date Leonardo Gomez MD [address] [place] [address] PCP - General Family Medicine 03/11/23
--- OUTSIDE RECORDS SUMMARY | 2024-08-24 07:07 | XMS_ITS | Clinical Summary ---
Author Organization [facility] Address [address] [place] [address] Care Team Providers Care Putter In Name Role Phone Leonardo Gomez MD Primary Care Provider [phone] Allergies No known active allergies Medications No known medications Social History Tobacco Use Types Packs/Day Years Used Date Smoking Tobacco: Every Day Cigarettes Smokeless Tobacco: Never Tobacco Cessation:Ready to Q uit: Not Asked; Counseling Given: Not Answered Sex and Gender Information Value Date Recorded Sex Assigned at Not on file Legal Sex Male 12:13 PM TV TECHNICIAN Gender Identity Not on file Sexual Orientation Not on file Last Filed Vital Signs Vital Sign Reading Time Taken Comments Blood Pressure 156/91 02/26/2024 11:01 AM CDT Pulse 80 02/26/2024 11:01 AM CDT Temperature 36.7 C (98 F) 02/26/2024 11:01 AM CDT Respiratory Rate 16 02/26/2024 11:01 AM CDT Oxygen Saturation 97% 02/26/2024 11:01 AM CDT Inhaled Oxygen Concentration - - Weight 79.4 kg (175 lb) 02/26/2024 11:01 AM CDT Height 172.7 cm (5' 8 ) 02/26/2024 11:01 AM CDT Body Mass Index 26.61 02/26/2024 11:01 AM CDT Plan of Treatment Health Maintenance Due Date Last Done Comments Colorectal Cancer Screening Colonoscopy (10 Years) 1962 Annual Physical 1965 Pneumococcal Vaccine: Pediatrics (0 to 5 Years) and At-Risk Patients (6 to 64 Years) (1 of 2 - PCV) 1968 Hepatitis C 1980 Zoster Vaccines (1 of 2) 2012 DTaP, Tdap and Td Vaccines ( 2 - Td or Tdap) 10/09/2023 10/08/2013 COVID-19 Vaccine (3 - 2023-2 5 season) 2024 02/04/2021, 01/14/2021 Influenza Adult (#1) 2024 RSV Immunization or 60+ Years (1 - 1-dose 75+ series) 2037 Meningococcal B Vaccine Aged Out No l onger eligible based on patient's age to complete this topic Meningococcal Vaccine Aged Out No say heena eligible based on patient's age to complete this topic RSV Immunizations Under 20 Months Aged Out No longer eligible b ased on patient's age to complete this topic Insurance [employer] Care Teams Putter In Relationship Specialty Start Date End Date Leonardo Gomez MD [address] [place] [address] PCP - General FAMILY PRACTICE 02/26/24
--- OUTSIDE RECORDS SUMMARY | 2024-08-24 07:07 | XMS_ITS | Referral Summary ---
Author Organization [facility] Address [address] [place] [address] Care Team Providers Care Inorganic Chemistry Professor Name Role Phone Leonardo Gomez MD Primary [...] routine healing 04/02/2023 Hemopneumothorax on left 03/11/2023 Social History Tobacco Use Types Packs/Day Years [...] money to buy more. Never true 04/02/20 Within the past 12 months, t he food you bought just didn't last and you didn't have money to get more. 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
== END 2024-08-24 07:03 | disposition home or self-care (01) ==
LOC: CHSIMG 07:05
PROVIDERS: PCP Family Medicine; Visit Provider Family Medicine
DX: R19.7 Diarrhea, unspecified (principal); K76.0 Fatty (change of) liver, not elsewhere classified
CPT/HCPCS: 76705

== ENCOUNTER 2024-08-25 14:05 | Outpatient (CLI) | payer OTHER, SELFPAY ==
--- NOTE | ~2024-08-25 | US_ITS ---
EXAM: Focused ultrasound examination of the soft tissues of the midline of the abdomen HISTORY: Unspecified Abdominal Pain TECHNIQUE: Sonographic evaluation of the soft tissues of the midline of the abdomen were performed as sessing grayscale appearance and color Doppler flow. COMPARISON: None. FINDINGS: Sonographic evaluation of the soft tissues of the midline of the abdomen demonstrate benign fibrofatt y and fibromuscular elements without a cystic or solid lesion of concern. IMPRESSION: No sonographic abnormality is appreciated on focused ultrasound examination of the midline of the abd omen. Reviewed, dictated and finalized at location A. ET BASKET MAKER IMPRESSION: No sonographic abnormality is appreciated on focused ultrasound examination of the midline of the abdomen.
--- OUTSIDE RECORDS SUMMARY | 2024-08-25 15:43 | XMS_ITS | Clinical Summary ---
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
--- OUTSIDE RECORDS SUMMARY | 2024-08-25 15:43 | XMS_ITS | Encounter Summary ---
Author Organization [facility] Address [address] [place] [address] Care Team Providers Care Test Skein Winder Name Role Phone Leonardo Goemz MD Primary Care Provider Encounter Details Date Type Department Care Team (Late Contact Info) Description 08/25/2024 External Device Data STL ABSTRACTION Provider, Abstract NO ADDRESS ON FILE Social History Tobacco Use Types Packs/Day Years Used Date Smoking Tobacco: Every Day Cigarettes 2 34.7 Started: 05/14/1988; Last attempted to quit: 05/14/2018 Smokeless Tobacco: Never Alcohol Use Standard Drinks/Week Comments Yes 5 (1 standard drink = 0.6 oz pur e alcohol) Sex and Gender Information Value Date Recorded Sex Assigned at Not on file Legal Sex Male 3:01 PM CDT Gender Identity Not on file Sexual Orientation Not on file documented as of this encounter Plan of Treatment Upcoming Encounters Date Type Department Care Team (Late st Contact Info) Description 12/20/2024 10:00 AM CDT Office Visit [facility] [place] Oncology and Hematology - Luciano [address] [facility] [address] [place] [address] Alireza Bach MD [address] [facility] [address] [place] [address] documented as of this encounter Visit Diagnoses Not on filedocumented in this encounter Care Teams Test Skein Winder Relationship Specialty Start Date End Date Leonardo Gomez MD [address] [place] [address] PCP - General Family Practice 03/29/19 documented as of this encounter
--- OUTSIDE RECORDS SUMMARY | 2024-08-25 15:43 | XMS_ITS | Clinical Summary ---
Author Organization [facility] Address [address] [place] [address] Care Team Providers Care Social And Political Studies Professor Name Role Phone Leonardo Gomez MD Primary Care Provider [phone] Allergies No known active allergies Medications No known medications Social History Tobacco Use Types Packs/Day Years Used Date Smoking Tobacco: Every Day Cigarettes Smokeless Tobacco: Never Tobacco Cessation:Ready to Q uit: Not Asked; Counseling Given: Not Answered Sex and Gender Information Value Date Recorded Sex Assigned at Not on file Legal Sex Male 12:13 PM DUMP ATTENDANT Gender Identity Not on file Sexual Orientation [...] Insurance [employer] Care Teams Social And Political Studies Professor Relationship Specialty Start Date End Date Leonardo Gomez MD [address] [place] [address] PCP - General FAMILY PRACTICE 02/26/24
--- OUTSIDE RECORDS SUMMARY | 2024-08-25 15:43 | XMS_ITS | Encounter Summary ---
Author Organization [facility] Address [address] [place] [address] Care Team Providers Care Primer Inserting Machine Adjuster Name Role Phone Leonardo Gomez MD Primary Care Provider Encounter Details Date Type Department Care Team (Late Contact Info) Description 08/24/2024 External Device Data STL ABSTRACTION Provider, Abstract [...] Description 12/20/2024 10:00 AM CDT Office Visit [facility] Oncology and Hematology - Luciano [address] [facility] [address] [place] [address] Alireza Bach MD [address] [facility] [address] [place] [address] documented as of this encounter Visit Diagnoses Not on filedocumented in this encounter Care Teams Primer Inserting Machine Adjuster Relationship Specialty Start Date End Date Leonardo Gomez MD [address] [place] [address] PCP - General Family Practice 03/29/19 documented as of this encounter
--- OUTSIDE RECORDS SUMMARY | 2024-08-25 15:43 | XMS_ITS | Continuity of Care Document ---
Author Organization [facility] Address [address] [place] [address] Phone Care Team Providers Care Chemical Etching Processor Name Role Phone Charlie Ang MD Unavailable [...] Diagnoses Date Provider Providers Copied on Encounter [facility], [address] [place], [place] [address], [id number], [place] [phone] [facility] No Information 7 Ashia Guerra. [address] [facility] [place] [address], [place], [place], [id number] , [place]. tel: [phone] Independent Medical Examination MAR[facility], [address], [place], [place], [id number], [place] tel:[phone] [facility] left shoulder (chief complaint) Pain in left shoulder 7 Ashia Guerra. [address] [facility], [address], [place], [place], [id number] , [place]. tel: [phone] Family History Family Member Type Diagnosis Age At Onset Problem (finding) No family history of Di abetes mellitus Father Problem (finding) hypertension Father Problem (finding) stroke Immunizations Vaccine Date Status Comments Flu (split) (3 yrs or older) refused Source: Other Provider Payers Payer name Insurance type Covered republican ID Tyler zaragoza(s) Susana Howe [id number] Social History Type Description Quantity Date Captured [...]
--- OUTSIDE RECORDS SUMMARY | 2024-08-25 15:43 | XMS_ITS | Clinical Summary ---
Author Organization [facility] Remberto Romanalfonzo Address [address] [facility] [place] [address] Care Team Providers Care Cold Meat Chef Name Role Phone Leonardo Gomez MD Primary Care Provider [phone] Allergies No known active allergies Medications lidocaine-priloc [...] Encounters Date Type Department Care Team Description 08/25/2024 External Device Data STL ABSTRACTION Provider, Abstract 08/24/2024 External Device Data STL ABSTRACTION Provider, Abstract 08/11/2024 External Device Data STL ABSTRACTION Provider, Abstract 08/10/2024 External Device Data STL ABSTRACTION Provider, Abstract 07/15/2024 External Device Data STL ABSTRACTION Provider, Abstract 07/13/2024 External Device Data STL ABSTRACTION Provider, Abstract 07/12/2024 Refill [facility] Oncology and Hematology [facility] [address] [place] [address] Alireza Bach MD Malignant neoplasm of hepatic flexure (CMS/HCC) 07/06/2024 External Device Data STL ABSTRACTION Provider, Abstract 06/29/2024 External Device Data STL ABSTRACTION Provider, Abstract 06/07/2024 10:15 AM MULE PACKER Office Visit [facility] Oncology and Hematology [facility] [address] [place] [address] Alireza Bach MD Malignant neoplasm of hepatic flexure (CMS/HCC) (Primary Dx) 06/07/2024 Orders Only [facility] Oncology [facility] Hematology [facility] [address] [place] [address] Alireza Bach MD from Last 3 Months [...] Comments Blood Pressure 136/92 06/07/2024 11:01 AM MULE PACKER Pulse 75 06/07/2024 11:00 AM MULE PACKER Temperature 36.8 C (98.2 F) 06/07/2024 11:00 AM MULE PACKER Respiratory Rate 17 06/07/2024 11:00 AM MULE PACKER Oxygen Saturation 91% 06/07/2024 11:00 AM MULE PACKER Inhaled Oxygen Concentration - - Weight 82.6 kg (182 lb 3.2 oz) 06/07/2024 11:00 AM MULE PACKER Height 172.7 cm (5' 8 ) 12/07/2021 8:36 AM CDT Body Mass Index 27.7 12/07/2021 8:36 AM CDT Plan of Treatment Upcoming Encounters Date Type Department Care Team (Late st Contact Info) Description 12/20/2024 10:00 AM CDT Office Visit [facility] Oncology and Hematology [facility] [address] [facility] [address] [place] [address] Alireza Bach MD [address] [facility] [address] [place] [address] Health Maintenance Due Date Last [...] COMPREHENSIVE METABOLIC PANEL Routine 06/02/2024 11:48 AM MULE PACKER from Last 3 Months Results * COMPREHENSIVE METABOLIC PANEL (06/02/2024 11:48 AM MULE PACKER) Blood us Alireza Bach MD CHEMISTRY ORDERABLES Final Resu lt from Last 3 Months Insurance [facility] CHOICE [id number] Care Teams Cold Meat Chef Relationship Specialty Start Date End Date Leonardo Gomez MD [address] [place] [address] PCP - General Family Practice 03/29/19
--- OUTSIDE RECORDS SUMMARY | 2024-08-25 15:43 | XMS_ITS | Referral Summary ---
Author Organization [facility] Address [address] [place] [address] Care Team Providers Care Air Brake Tester Name Role Phone Leonardo Gomez MD Primary [...] on file Legal Sex Male 6:35 AM WEDDING COORDINATOR Gender Identity Not on file Sexual Orientation [...] Plan of Treatment Not on file Insurance [facility] [place] Advance Direct[place] For more information, please contact: [phone] * Full Code (Latest Code Status on File) Date Activated Date Inactivated Comments 03/12/2023 3:52 PM 03/14/2023 8:07 PM Care Teams Air Brake Tester Relationship Specialty Start Date End Date Leonardo Gomez MD [address] [place] [address] PCP - General Family Medicine 03/11/23
--- OUTSIDE RECORDS SUMMARY | 2024-08-25 15:43 | XMS_ITS | Encounter Summary ---
Author Organization [facility] Address [address] [place] [address] Care Team Providers Care Club Car Attendant Name Role Phone Leonardo Gomez MD Primary Care Provider [phone] Encounter Details Date Type Department Care Team (Late st Contact Info) Description 11/28/2018 Abstract SFL CONVERSION [address] [place] [address] , Generic Conversion, Social History Tobacco Use Types Packs/Day Years Used Date Smoking Tobacco: Never Assessed Sex and Gender Information Value Date Recorded Sex Assigned at Not on file Legal Sex Male 12:13 PM BOOK EDITOR Gender Identity Not on file Sexual Orientation Not on file documented as of this encounter Plan of Treatment Not on file documented as of this encounter Visit Diagnoses Not on filedocumented in this encounter Care Teams Club Car Attendant Relationship Specialty Start Date End Date Leonardo Gomez MD [address] [place] [address] PCP - General FAMILY PRACTICE 02/26/24 documented as of this encounter
== END 2024-08-25 14:06 | disposition home or self-care (01) ==
LOC: CHSIMG 14:06
PROVIDERS: PCP Family Medicine; Visit Provider Family Medicine
DX: R10.9 Unspecified abdominal pain (principal)
CPT/HCPCS: 76705

== ENCOUNTER 2024-08-26 12:12 | Outpatient (CLI) | payer OTHER, SELFPAY ==
--- NOTE | ~2024-08-26 | CT_ITS ---
EXAMINATION: CT abdomen pelvis wo con DATE: 08/26/2024 12:29 INDICATION: Abdominal pain TECHNIQUE: Computed tomography (CT) of the abdomen and pelvis was performed without intravenous contr ast. Automated exposure control and iterative reconstruction technique were employed. The dose-length product was 445.02 mGy-cm. COMPARISON: 05/21/2023 FINDINGS: Lung bases are clear. Heart size is normal. No pericardial or pleural effusion. Postoperative change of a right hemicolectomy for prior colon cancer with ileocolic anastomosis in the anterior upper abdo men. There is adjacent suture line along the distal greater curvature of stomach reportedly for prior gastric wedge resection for involvement from the adjacent colon cancer. No abnormal masses in the re gion of the suture lines to suggest locally recurrent disease. No bowel obstruction. Prominent diffus e hepatic steatosis with focal sparing along the gallbladder fossa. Gallbladder, spleen, pancreas, bi lateral adrenal glands and kidneys are normal. No urolithiasis or hydronephrosis. Bladder is decompre ssed bladder is unremarkable. No free intraperitoneal gas or fluid. No pathologically enlarged abdomi nal or pelvic lymphadenopathy. Small fat-containing left inguinal hernia. Mild lumbar spondylosis. IMPRESSION: 1. No acute intra-abdominal/pelvic process. 2. Diffuse hepatic steatosis. 3. Small fat-containing left inguinal hernia. Reviewed, dictated and finalized at location L. IFIED NUTRITIONIST
--- OUTSIDE RECORDS SUMMARY | 2024-08-26 13:33 | XMS_ITS | Encounter Summary ---
Author Organization [facility] Address [address] [place] [address] Care Team Providers Care House Moving Supervisor Name Role Phone Leonardo Gomez MD Primary [...] Description 12/20/2024 10:00 AM CDT Office Visit [facility] Oncology and Hematology - Luciano [address] [facility] [address] [place] [address] Alireza Bach MD [address] [facility] [address] [place] [address] documented as of this encounter Visit Diagnoses Not on filedocumented in this encounter Care Teams House Moving Supervisor Relationship Specialty Start Date End Date Leonardo Gomez MD [address] [place] [address] PCP - General Family Practice 03/29/19 documented as of this encounter
--- OUTSIDE RECORDS SUMMARY | 2024-08-26 13:33 | XMS_ITS | Encounter Summary ---
Author Organization [facility] Address [address] [place] [address] Care Team Providers Care Territory Sales Executive Name Role Phone Leonardo Gomez MD Primary Care Provider [phone] Encounter Details Date Type Department Care Team (Late st Contact Info) Description 11/28/2018 Abstract SFL CONVERSION [address] [place] [address] , Generic Conversion, Social History Tobacco Use Types Packs/Day Years Used Date Smoking Tobacco: Never Assessed Sex and Gender Information Value Date Recorded Sex Assigned at Not on file Legal Sex Male 12:13 PM CASTING REPAIRER Gender Identity Not on file Sexual Orientation Not on file documented as of this encounter Plan of Treatment Not on file documented as of this encounter Visit Diagnoses Not on filedocumented in this encounter Care Teams Territory Sales Executive Relationship Specialty Start Date End Date Leonardo Gomez MD [address] [place] [address] PCP - General FAMILY PRACTICE 02/26/24 documented as of this encounter
--- OUTSIDE RECORDS SUMMARY | 2024-08-26 13:33 | XMS_ITS | Referral Summary ---
Author Organization [facility] Address [address] [place] [address] Care Team Providers Care Proof Operator Name Role Phone Leonardo Gomez MD [...] on file Legal Sex Male 6:35 AM ASPARAGUS BUNCHER Gender Identity Not on file Sexual Orientation [...] Plan of Treatment Not on file Insurance [facility] [employer] [place] [employer] [place] Advance Directives For more information, please contact: [phone] * Full Code (Latest Code Status on File) Date Activated Date Inactivated Comments 03/12/2023 3:52 PM 03/14/2023 8:07 PM Care Teams Proof Operator Relationship Specialty Start Date End Date Leonardo Gomez MD [address] [place] [address] PCP - General Family Medicine 03/11/23
--- OUTSIDE RECORDS SUMMARY | 2024-08-26 13:33 | XMS_ITS | Clinical Summary ---
Author Organization [facility] Address [address] [place] [address] Care Team Providers Care House Mover Helper Name Role Phone Leonardo Gomez MD Primary [...] on file Legal Sex Male 6:35 AM TRAPPER ANIMAL Gender Identity Not on file Sexual Orientation [...] 2) 2012 Influenza Vaccine (#1) 2024 [place] [employer] [place] [place] [place] Advance Directives For more information, please contact: [phone] * Full Code (Latest Code Status on File) Date Activated Date Inactivated Comments 03/12/2023 3:52 PM 03/14/2023 8:07 PM Care Teams House Mover Helper Relationship Specialty Start Date End Date Leonardo Gomez MD [address] [place] [address] PCP - General Family Medicine 03/11/23
--- OUTSIDE RECORDS SUMMARY | 2024-08-26 13:33 | XMS_ITS | Encounter Summary ---
Author Organization [facility] Address [address] [address] [place] [address] Care Team Providers Care Palliative Senior Np Name Role Phone Leonardo Gomez MD Primary [...] CDT Office Visit [facility] Oncology and Hematology - Luciano [address] [facility] [address] [place] [address] Alireza Bach MD [address] [facility] [address] [place] [address] documented as of this encounter Visit Diagnoses Not on filedocumented in this encounter Care Teams Palliative Senior Np Relationship Specialty Start Date End Date Leonardo Gomez MD [address] [place] [address] PCP - General Family Practice 03/29/19 documented as of this encounter
--- OUTSIDE RECORDS SUMMARY | 2024-08-26 13:33 | XMS_ITS | Continuity of Care Document ---
Author Organization [facility] Address [address] [place] [address] Phone Care Team Providers Care Justowriter Operator Name Role Phone Charlie Ang MD Unavailable [...] Diagnoses Date Provider Providers Copied on Encounter [facility], [address] [place], [place] [address] [address], [id number], [place] [phone] Orthopedic [employer] [facility] No Information 7 Ashia Guerra. [address] [place] [address], [place], [place], [id number] , [place]. tel: [phone] Independent Medical Examination MARÍA [facility], [address], [place], [place], [id number], [place] tel:[phone] [facility] left shoulder (chief complaint) Pain in left shoulder 7 Ashia Guerra. [address], [address], [place], [place], [id number] , [place]. tel: [phone] Family History Family Member Type Diagnosis Age At Onset Problem (finding) No family history of Di abetes mellitus Father Problem (finding) hypertension Father Problem (finding) stroke Immunizations Vaccine Date Status Comments Flu (split) (3 yrs or older) refused Source: Other Provider Payers Payer name Insurance type Covered republican ID Tyler zaragoza(s) Susana Howe [id number] Social History Type Description Quantity Date Captured [...]
--- OUTSIDE RECORDS SUMMARY | 2024-08-26 13:33 | XMS_ITS | Clinical Summary ---
Author Organization [facility] Remberto Romanalfonzo Address [address] [place] [address] Care Team Providers Care Dining Services Director Name Role Phone Leonardo Gomez MD Primary Care Provider [phone] Allergies No known active allergies Medications lidocaine-priloc [...] Data STL ABSTRACTION Provider, Abstract 07/12/2024 Refill [facility] Oncology and Hematology [facility] [address] [place] [address] Alireza Bach MD Malignant neoplasm of hepatic flexure (CMS/HCC) 07/06/2024 External Device Data STL ABSTRACTION Provider, Abstract 06/29/2024 External Device Data STL ABSTRACTION Provider, Abstract 06/07/2024 10:15 AM SALES BRANCH MANAGER Office Visit [facility] Oncology and Hematology [facility] [address] [place] [address] Alireza Bach MD Malignant neoplasm of hepatic flexure (CMS/HCC) (Primary Dx) 06/07/2024 Orders Only [facility] Hematology [facility] [address] [place] [address] Alireza Bach MD from Last 3 Months [...] Comments Blood Pressure 136/92 06/07/2024 11:01 AM SALES BRANCH MANAGER Pulse 75 06/07/2024 11:00 AM SALES BRANCH MANAGER Temperature 36.8 C (98.2 F) 06/07/2024 11:00 AM SALES BRANCH MANAGER Respiratory Rate 17 06/07/2024 11:00 AM SALES BRANCH MANAGER Oxygen Saturation 91% 06/07/2024 11:00 AM SALES BRANCH MANAGER Inhaled Oxygen Concentration - - Weight 82.6 kg (182 lb 3.2 oz) 06/07/2024 11:00 AM SALES BRANCH MANAGER Height 172.7 cm (5' 8 ) 12/07/2021 8:36 AM CDT Body Mass Index 27.7 12/07/2021 8:36 AM CDT Plan of Treatment Upcoming Encounters Date Type Department Care Team (Late st Contact Info) Description 12/20/2024 10:00 AM CDT [facility] Visit [facility] Oncology and Hematology [facility] [address] [facility] [address] [place] [address] Alireza Bach MD [address] [facility] [address] [place] [address] Health Maintenance Due Date Last [...] COMPREHENSIVE METABOLIC PANEL Routine 06/02/2024 11:48 AM SALES BRANCH MANAGER from Last 3 Months Results * COMPREHENSIVE METABOLIC PANEL (06/02/2024 11:48 AM SALES BRANCH MANAGER) Blood us Alireza Bach MD CHEMISTRY ORDERABLES Final Resu lt from Last 3 Months Insurance [facility] CHOICE [id number] Care Teams Dining Services Director Relationship Specialty Start Date End Date Leonardo Gomez MD [address] [place] [address] PCP - General Family Practice 03/29/19
--- OUTSIDE RECORDS SUMMARY | 2024-08-26 13:33 | XMS_ITS | Clinical Summary ---
Author Organization [facility] Address [address] [place] [address] Care Team Providers Care Body Art Technician Name Role Phone Leonardo Gomez MD Primary Care Provider [phone] Allergies No known active allergies Medications No known medications Social History Tobacco Use Types Packs/Day Years Used Date Smoking Tobacco: Every Day Cigarettes Smokeless Tobacco: Never Tobacco Cessation:Ready to Q uit: Not Asked; Counseling Given: Not Answered Sex and Gender Information Value Date Recorded Sex Assigned at Not on file Legal Sex Male 12:13 PM COTTON BALL BAGGER Gender Identity Not on file Sexual Orientation [...] Insurance [employer] Care Teams Body Art Technician Relationship Specialty Start Date End Date Leonardo Gomez MD [address] [place] [address] PCP - General FAMILY PRACTICE 02/26/24
== END 2024-08-26 12:13 | disposition home or self-care (01) ==
LOC: CHSIMG 12:13
PROVIDERS: PCP Family Medicine; Visit Provider Family Medicine
DX: R10.9 Unspecified abdominal pain (principal); K76.0 Fatty (change of) liver, not elsewhere classified; E88.89 Other specified metabolic disorders; K40.90 Unilateral inguinal hernia, without obstruction or gangrene, not specified as recurrent
CPT/HCPCS: 74176

== ENCOUNTER 2024-09-01 11:31 | Outpatient (CLI) | payer OTHER, SELFPAY ==
--- NOTE | ~2024-09-01 | XR_ITS ---
XR abdomen/kub 1V Ordering provider: Laya Nguyen APRN History: . R10.13 - Epigastric pain X 5 YRS AFTER COLON RESECTION . Comparison: None. FINDINGS: BOWEL: Nonobstructive bowel gas pattern. ORGANOMEGALY: None. SIGNIFICANT PATHOLOGIC CALCIFICATIONS: None. OTHER: No free air is seen under the diaphragm. IMPRESSION: NO ACUTE ABDOMINAL FINDINGS. Reviewed, dictated and finalized at location A.
--- NOTE | ~2024-09-01 | XR_ITS ---
Clinical Indication: Epigastric pain PA and lateral views of the chest: Comparison: 05/10/2024 Findings: The lungs are clear, without evidence of focal consolidation or pleural effusion. Cardiome diastinal silhouette is within normal limits. Bones and soft tissues are unremarkable, aside from sta ble left clavicular ORIF hardware. Impression: Clear lungs. Reviewed, dictated and finalized at location . Impression: Clear lungs.
[2024-09-01 12:30] LABS: Hematocrit 48.7 % (42.0-52.0); Hemoglobin 16.5 g/dL (14.0-18.0); Mean Corpuscular HGB Conc 33.9 g/dl (32-36); Mean Corpuscular Hemoglobin 34.4 pg (26-34); Mean Corpuscular Volume 101.5 fl (80-100); Mean Platelet Volume 10.3 fl (7.4-10.4); Platelet Count Result 163 k/mm3 (150-375); Red Cell Distribution Width 13.1 % (11.5-14.5); White Blood Count 7.2 K/mm3 (4.5-10.0)
[2024-09-01 12:42] LABS: Alanine Aminotransferase 46 U/L (6-50); Albumin Level 4.7 g/dL (3.5-5.1); Alkaline Phosphatase 69 U/L (38-126); Amylase 62 U/L (30-110); Anion Gap 11 mmol/L (4-12); Aspartate Amino Transferase 58 U/L (17-59); Bilirubin,Total 0.9 mg/dL (0.2-1.3); Blood Urea Nitrogen 11 mg/dL (9-20); CRP 0.7 mg/dL (<1.0); Calcium 9.1 mg/dL (8.4-10.2); Carbon Dioxide 25 mmol/L (22-30); Chloride 103 mmol/L (98-107); Estimated Glomerular Filt Rate > 60; Glucose 96 mg/dL (65-110); Potassium 4.5 mmol/L (3.4-5.0); Sodium 139 mmol/L (137-145)
[2024-09-01 13:15] LABS: Thyroid Stimulating Hormone Reflex 0.585 uIU/mL (0.465-4.68)
--- OUTSIDE RECORDS SUMMARY | 2024-09-01 13:25 | XMS_ITS | Clinical Summary ---
Author Organization [facility] Remberto Romanalfonzo Address [address] [place] [address] Care Team Providers Care Net Mobile Developer Name Role Phone Leonardo Gomez MD Primary Care Provider [phone] Allergies No known active allergies Medications lidocaine-priloc [...] Encounters Date Type Department Care Team Description 08/28/2024 External Device Data STL ABSTRACTION Provider, Abstract 08/27/2024 External Device Data STL ABSTRACTION Provider, Abstract 08/25/2024 External Device Data STL ABSTRACTION Provider, Abstract 08/24/2024 External Device Data STL ABSTRACTION Provider, Abstract 08/11/2024 External Device Data STL ABSTRACTION Provider, Abstract 08/10/2024 External Device Data STL ABSTRACTION Provider, Abstract 07/15/2024 External Device Data STL ABSTRACTION Provider, Abstract 07/13/2024 External Device Data STL ABSTRACTION Provider, Abstract 07/12/2024 Refill [facility] Oncology and Hematology [facility] [address] [place] [address] Alireza Bach MD Malignant neoplasm of hepatic flexure (CMS/HCC) 07/06/2024 External Device Data STL ABSTRACTION Provider, Abstract 06/29/2024 External Device Data STL ABSTRACTION Provider, Abstract 06/07/2024 10:15 AM GRAPE GROWER Office Visit [facility] Oncology and Hematology [facility] [address] [place] [address] Alireza Bach MD Malignant neoplasm of hepatic flexure (CMS/HCC) (Primary Dx) 06/07/2024 Orders Only [facility] Oncology [facility] Hematology [facility] [address] [place] [address] Alireza Bach MD from Last 3 Months Family History Medical History Relation Name Comments Heart Disease Father Cancer Mother Relation Name Status Comments Father Mother Alive Social History Tobacco Use Types Packs/Day Years Used Date Smoking Tobacco: Every Day Cigarettes 2 34.8 Started: 05/14/1988; Last attempted to quit: 05/14/2018 [...] Comments Blood Pressure 136/92 06/07/2024 11:01 AM GRAPE GROWER Pulse 75 06/07/2024 11:00 AM GRAPE GROWER Temperature 36.8 C (98.2 F) 06/07/2024 11:00 AM GRAPE GROWER Respiratory Rate 17 06/07/2024 11:00 AM GRAPE GROWER Oxygen Saturation 91% 06/07/2024 11:00 AM GRAPE GROWER Inhaled Oxygen Concentration - - Weight 82.6 kg (182 lb 3.2 oz) 06/07/2024 11:00 AM GRAPE GROWER Height 172.7 cm (5' 8 ) 12/07/2021 8:36 AM CDT Body Mass Index 27.7 12/07/2021 8:36 AM CDT Plan of Treatment Upcoming Encounters Date Type Department Care Team (Late st Contact Info) Description 12/20/2024 10:00 AM CDT Office Visit [facility] Oncology and Hematology - [place] [address] [place] [address] [facility] [address] [place] [address] Alireza Bach MD [address] [facility] [address] [place] [address] Health Maintenance Due Date Last Done Comments Pre-Diabetes and Diabetes Screening 1962 DTAP/TDAP/TD VACCINES (1 - Tdap) 1981 Lung Cancer Screening 2012 ZOSTER VACCINE (1 of 2) 2012 INFLUENZA VACCINE (#1) 2024 Preventative Visit- Commercial 06/23/2024 RSV VACCINE (60+ or ) (1 - 1-dose 75+ series) 2037 Insurance [facility] CHOICE [id number] Care Teams Net Mobile Developer Relationship Specialty Start Date End Date Leonardo Gomez MD [address] [place] [address] PCP - General Family Practice 03/29/19
--- OUTSIDE RECORDS SUMMARY | 2024-09-01 13:25 | XMS_ITS | Referral Summary ---
Author Organization [facility] Address [address] [place] [address] Care Team Providers Care Leather Stitcher Name Role Phone Leonardo Gomez MD Primary [...] on file Legal Sex Male 6:35 AM LABEL DESIGNER Gender Identity Not on file Sexual Orientation [...] Plan of Treatment Not on file Insurance [facility] [employer] [place] [place] [employer] [place] Advance Directives For more information, please contact: [phone] * Full Code (Latest Code Status on File) Date Activated Date Inactivated Comments 03/12/2023 3:52 PM 03/14/2023 8:07 PM Care Teams Leather Stitcher Relationship Specialty Start Date End Date Leonardo Gomez MD [address] [place] [address] PCP - General Family Medicine 03/11/23
--- OUTSIDE RECORDS SUMMARY | 2024-09-01 13:25 | XMS_ITS | Encounter Summary ---
Author Organization [facility] Address [address] [place] [address] Care Team Providers Care Hospital Cna Name Role Phone Leonardo Gomez MD Primary Care Provider [phone] Encounter Details Date Type Department Care Team (Late st Contact Info) Description 11/28/2018 Abstract SFL CONVERSION [address] [place] [address] , Generic Conversion, Social History Tobacco Use Types Packs/Day Years Used Date Smoking Tobacco: Never Assessed Sex and Gender Information Value Date Recorded Sex Assigned at Not on file Legal Sex Male 12:13 PM WINDOW COVERING SALES CONSULTANT Gender Identity Not on file Sexual Orientation Not on file documented as of this encounter Plan of Treatment Not on file documented as of this encounter Visit Diagnoses Not on filedocumented in this encounter Care Teams Hospital Cna Relationship Specialty Start Date End Date Leonardo Gomez MD [address] [place] [address] PCP - General FAMILY PRACTICE 02/26/24 documented as of this encounter
--- OUTSIDE RECORDS SUMMARY | 2024-09-01 13:25 | XMS_ITS | Continuity of Care Document ---
Author Organization [facility] Address [address] [place] [address] Phone Care Team Providers Care Tmd Teacher Assistant Name Role Phone Charlie Ang MD Unavailable [...] Diagnoses Date Provider Providers Copied on Encounter [email or web address], [address] [place], [place] [address], [id number], [place] [phone] [facility] No Information 7 Ashia Guerra. [address] [facility], [place] [address], [place], [place], [id number] , [place]. tel: [phone] Independent Medical Examination MAR[facility]A [facility], [address], [place], [place], [id number], [place] tel:[phone] [facility] left shoulder (chief complaint) Pain in left shoulder 7 Ashia Guerra. [address], [address], [place], [place], [id number] , [place]. tel: [phone] Family History Family Member Type Diagnosis Age At Onset Problem (finding) No family history of Di abetes mellitus Father Problem (finding) hypertension Father Problem (finding) stroke Immunizations Vaccine Date Status Comments Flu (split) (3 yrs or older) refused Source: Other Provider Payers Payer name Insurance type Covered green party ID Tyler zaragoza(s) Susana Howe [id number] Social History Type Description Quantity Date Captured [...]
--- OUTSIDE RECORDS SUMMARY | 2024-09-01 13:25 | XMS_ITS | Clinical Summary ---
Author Organization [facility] Address [address] [place] [address] Care Team Providers Care Director Of Curriculum And Instruction Name Role Phone Leonardo Gomez MD Primary Care Provider [phone] Allergies No known active allergies Medications No known medications Social History Tobacco Use Types Packs/Day Years Used Date Smoking Tobacco: Every Day Cigarettes Smokeless Tobacco: Never Tobacco Cessation:Ready to Q uit: Not Asked; Counseling Given: Not Answered Sex and Gender Information Value Date Recorded Sex Assigned at Not on file Legal Sex Male 12:13 PM PATIENT MANAGER Gender Identity Not on file Sexual Orientation [...] Insurance [employer] Care Teams Director Of Curriculum And Instruction Relationship Specialty Start Date End Date Leonardo Gomez MD [address] [place] [address] PCP - General FAMILY PRACTICE 02/26/24
--- OUTSIDE RECORDS SUMMARY | 2024-09-01 13:25 | XMS_ITS | Clinical Summary ---
Author Organization [facility] Address [address] [place] [address] Care Team Providers Care Manager Product Name Role Phone Leonardo Gomez MD Primary [...] on file Legal Sex Male 6:35 AM VEHICLE CALIBRATION ENGINEER Gender Identity Not on file Sexual Orientation [...] 2) 2012 Influenza Vaccine (#1) 2024 [place] [employer] [place] [employer] [place] [employer] [place] Advance Directives For more information, please contact: [phone] * Full Code (Latest Code Status on File) Date Activated Date Inactivated Comments 03/12/2023 3:52 PM 03/14/2023 8:07 PM Care Teams Manager Product Relationship Specialty Start Date End Date Leonardo Gomez MD [address] [place] [address] PCP - General Family Medicine 03/11/23
[2024-09-01 13:39] LABS: Erythrocyte Sedimentation Rate 8 mm/hr (0-20)
== END 2024-09-01 11:32 | disposition home or self-care (01) ==
LOC: ANHLAB 11:33
PROVIDERS: PCP Family Medicine; Visit Provider Nurse Practitioner
DX: R10.13 Epigastric pain (principal); R14.0 Abdominal distension (gaseous); R68.81 Early satiety
CPT/HCPCS: 36415; 71046; 74018; 80053; 82150; 84443; 85027; 85652; 86140

== ENCOUNTER 2024-09-07 00:48 | Day surgery (SDC) | payer OTHER, SELFPAY ==
[2024-09-06 11:07] VITALS: BMI 27.4
--- OUTSIDE RECORDS SUMMARY | 2024-09-07 00:51 | XMS_ITS | Clinical Summary ---
Author Organization [facility] Remberto Romanalfonoz Address [address] [place] [address] Care Team Providers Care Reactor Kettle Operator Name Role Phone Leonardo Gomez MD Primary Care Provider [phone] Allergies No known active allergies Medications lidocaine-priloc [...] Data STL ABSTRACTION Provider, Abstract 07/12/2024 Refill [facility] Oncology and Hematology - [place] [address] [place] [address] Alireza Bach MD Malignant neoplasm of hepatic flexure (CMS/HCC) 07/06/2024 External Device Data STL ABSTRACTION Provider, Abstract 06/29/2024 External Device Data STL ABSTRACTION Provider, Abstract from Last 3 Months Family History Medical [...] Comments Blood Pressure 136/92 06/07/2024 11:01 AM SENIOR HR BUSINESS PARTNER Pulse 75 06/07/2024 11:00 AM SENIOR HR BUSINESS PARTNER Temperature 36.8 C (98.2 F) 06/07/2024 11:00 AM SENIOR HR BUSINESS PARTNER Respiratory Rate 17 06/07/2024 11:00 AM SENIOR HR BUSINESS PARTNER Oxygen Saturation 91% 06/07/2024 11:00 AM SENIOR HR BUSINESS PARTNER Inhaled Oxygen Concentration - - Weight 82.6 kg (182 lb 3.2 oz) 06/07/2024 11:00 AM SENIOR HR BUSINESS PARTNER Height 172.7 cm (5' 8 ) 12/07/2021 8:36 AM CDT Body Mass Index 27.7 12/07/2021 8:36 AM CDT Plan of Treatment Upcoming Encounters Date Type Department Care Team (Late st Contact Info) Description 12/20/2024 10:00 AM CDT Office Visit [facility] Oncology and Hematology - [place] [address] [place] [address] Alireza Bach MD [address] [facility] [address] [facility] [address] [place] [address] Health Maintenance Due Date Last Done Comments Pre-Diabetes and Diabetes Screening 1962 DTAP/TDAP/TD VACCINES (1 - Tdap) 1981 Lung Cancer Screening 2012 ZOSTER VACCINE (1 of 2) 2012 INFLUENZA VACCINE (#1) 2024 Preventative Visit- Commercial 06/23/2024 RSV VACCINE (60+ or ) (1 - 1-dose 75+ series) 2037 Insurance [facility] CHOICE [id number] Care Teams Reactor Kettle Operator Relationship Specialty Start Date End Date Leonardo Gomez MD [address] [place] [address] PCP - General Family Practice 03/29/19
--- OUTSIDE RECORDS SUMMARY | 2024-09-07 00:51 | XMS_ITS | Clinical Summary ---
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
--- OUTSIDE RECORDS SUMMARY | 2024-09-07 00:51 | XMS_ITS | Encounter Summary ---
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
--- OUTSIDE RECORDS SUMMARY | 2024-09-07 00:51 | XMS_ITS | Clinical Summary ---
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
--- OUTSIDE RECORDS SUMMARY | 2024-09-07 00:51 | XMS_ITS | Referral Summary ---
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
[2024-09-07 06:48] VITALS: BP 145/89; PULSE 77; RESP 20; TEMP 36.6; O2SAT 97
[2024-09-07] MEDS: LACTATED RINGERS 1,000 ML 150 ML IV CONT (07:03)
--- NOTE | 2024-09-07 07:19 | P.PNAN_ITS ---
Anes - Initial Pre Proc Eval Procedure: Operation Date: 09/07/24 07:45 Proposed Procedures p Esophagogastroduodenoscopy - Gio Vazquez MD Date/Time: 09/07/24 07:19 Surgeon: Gio Vazquez MD Pre Op Diagnosis: Epigastric pain,Early satiety,Abdominal distension Patient Data Age: 63 Gender: M Height: 1.73 m Weight: 81.7 kg Last Vital Signs Temp 36.6 C 09/07/24 06:48 Pulse 77 09/07/24 06:48 Resp 20 09/07/24 06:48 BP 145/89 H 09/07/24 06:48 Pulse Ox 97 09/07/24 06:48 O2 Del Method Room Air 09/07/24 06:48 Allergies Allergy/AdvReac Type Severity Reaction Status Date / Time No Known Allergies Allergy Verified 09/07/24 06:46 Home Medications ?Medication ?Instructions ?Recorded ?Confirmed ?Type ebyxjqqb-qn-txnot 300 mcg-K 60 1 tablet PO DAILY 05/05/19 09/07/24 History mcg-lycop 600 mcg-lutein 300 mcg tablet (Centrum Silver Men) aspirin 325 mg tablet 325 mg PO DAILY 04/27/20 09/07/24 History albuterol sulfate 90 mcg/actuation 2 puff inhalation QID PRN 05/05/23 09/06/24 History aerosol inhaler Shortness Of Breath budesonide-formoterol HFA 160 1 inh inhalation Q12H #10.2 grams 05/10/24 09/06/24 Rx mcg-4.5 mcg/actuation aerosol inhaler (Breyna) levofloxacin 750 mg tablet 750 mg PO DAILY #7 tabs 05/10/24 09/06/24 Rx prednisone 20 mg tablet 40 mg (2 x 20 mg) PO DAILY 5 days 05/10/24 09/06/24 Rx #10 tabs metoclopramide HCl 10 mg tablet 10 mg PO ACHS #120 tabs 09/01/24 09/06/24 Rx (Reglan) omeprazole 40 mg capsule,delayed 40 mg PO BID #60 caps 09/01/24 09/06/24 Rx release albuterol sulfate 2.5 mg/3 mL 2.5 mg inhalation Q6H PRN 09/06/24 09/06/24 History (0.083 %) solution for nebulization shortness of breath or wheezing Patient hx anesthesia problems: none Family hx anesthesia problems: none Results Review: All pre-operative results and documents have been reviewed as part of the pre- operative evaluation. [facility] Past Medical History Medical History BMI 29.0-29.9,adult History of trigger finger Incisional hernia of anterior abdominal wall without obstruction or gangrene Port-A-Cath in place (~2017) Malignant neoplasm of hepatic flexure Status post resection and reanastomosis. Chemotherapy now in progress now COPD (chronic obstructive pulmonary disease) Surgical History Surgical History History of rotator cuff surgery H/O right hemicolectomy H/O hernia repair 03/07/2020: Retrorectus recurrent incarcerated hernia repair with Prolene soft mesh, THUY transverse abdominus myofascial flap advancement (3cm on left, 3cm on right) removal mesh foreign body. Family History Family History Mother Family history of malignant neoplasm of breast in first degree relative Social History Social History Smoking packs per day: 1.5 Smoking cigarettes per day: 30.0 Years smoked: 40 Smoking pack-years: 60.00 Smoking status: Current every day smoker Tobacco type: cigarettes Smoking end date: 02/21/20 Additional smoking assessment comments: pt uses chantix has smoked off and on for years, not smoking now Alcohol intake: current Drinks per week: 4 Substance use: current Substance use type: opiates Last use: 09/04/24 Living arrangements: with family Additional living arrangements comments: with sp Gender identity (if verbalized by the patient): Male Spiritual care concerns: No Anes - Eval Final PreProcedure Day of Procedure 09/07/24 07:19 Patient weight: overweight Heart: regular rate and rhythm Lungs: decreased breath sounds Airway: Mallampati scale class II Neurological: alert and oriented Last oral intake: >/= 8 hours ASA classification: III Emergent: no Anesthetic plan: proceed Anesthesia type and monitoring: general GIVS and standard monitoring Results Review: All pre-operative results and documents have been reviewed as part of the pre- operative evaluation. Informed Consent: The patient's anesthetic plan and its attendant risks and benefits were discussed with the patient/family/POA. Questions were solicited and answers provided to the satisfaction of the patient/family/POA.
--- NOTE | 2024-09-07 07:40 | WPDHPUPDATE1 ---
History and Physical Update Update Date/Time: 09/07/24 07:40 History and Physical has been reviewed, including an updated exam of the patient. There are NO changes in the patient's condition. Risks, benefits, and alternatives have been discussed and questions answered. Patient agrees to proceed with procedure.
[2024-09-07 07:49] VITALS: BP 124/84; PULSE 95; RESP 30; O2SAT 93
[2024-09-07 07:59] VITALS: BP 136/92; PULSE 85; RESP 25; O2SAT 96
[2024-09-07 08:09] VITALS: BP 140/97; PULSE 72; RESP 20; O2SAT 97
== END 2024-09-07 08:18 | disposition home or self-care (01) ==
PROVIDERS: PCP Family Medicine; Referring Provider Nurse Practitioner; Visit Provider Internal Medicine Gastroenterology
PROC: 0DJ08ZZ Inspection of Upper Intestinal Tract, Via Natural or Artificial Opening Endoscopic (ICD-10-PCS; CPT 43239; principal; 2024-09-07 07:45)
DX: K21.00 Gastro-esophageal reflux disease with esophagitis, without bleeding (principal); K29.70 Gastritis, unspecified, without bleeding; J44.9 Chronic obstructive pulmonary disease, unspecified; F17.210 Nicotine dependence, cigarettes, uncomplicated; Z79.82 Long term (current) use of aspirin; Z79.51 Long term (current) use of inhaled steroids; Z79.52 Long term (current) use of systemic steroids; Z98.890 Other specified postprocedural states; Z95.828 Presence of other vascular implants and grafts; Z90.49 Acquired absence of other specified parts of digestive tract; Z87.11 Personal history of peptic ulcer disease; Z92.21 Personal history of antineoplastic chemotherapy; Z85.038 Personal history of other malignant neoplasm of large intestine; Z80.3 Family history of malignant neoplasm of breast
CPT/HCPCS: 43239; 88305; J2704; J7120

== ENCOUNTER 2024-11-02 06:13 | Emergency (ER) | payer OTHER, SELFPAY ==
[2024-11-02] VITALS (30 sets, daily range): BP systolic 111–149; BP diastolic 68–103; PULSE 74–111; RESP 9–26; TEMP 36.6–36.7; O2SAT 90–96
--- NOTE | ~2024-11-02 | XR_ITS ---
Portable chest x-ray Comparison: 09/01/2024 Clinical History: Chest pain Findings: Lungs are clear, without focal consolidation or pleural effusion. Cardiomediastinal silho uette is stable. Prior ORIF of the left clavicle, unchanged. Probable chronic left rib fracture defor marysol. Impression: No acute abnormality. Clear lungs. Reviewed, dictated and finalized at location . Impression: No acute abnormality. Clear lungs.
--- NOTE | 2024-11-02 06:15 | ECG_ITS ---
Test Date: 2024-11-02 06:20:42 Measurements Intervals [place] Rate: 88 P: 81 WA: 148 QRS: 45 QRSD: 104 T: 61 QT: 359 QTc: 435 Interpretive Statements SINUS RHYTHM No previous ECG available for comparison Electronically Signed On 11-02-2024 14:00:02 CDT by Lizandro Estrada M.D.
--- OUTSIDE RECORDS SUMMARY | 2024-11-02 06:16 | XMS_ITS | Referral Summary ---
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
--- OUTSIDE RECORDS SUMMARY | 2024-11-02 06:16 | XMS_ITS | Continuity of Care Document ---
Author Organization [facility] Address [address] [place] [address] Phone Care Team Providers Care Roll Finisher Name Role Phone Charlie Ang MD Unavailable [...] Diagnoses Date Provider Providers Copied on Encounter [employer], [address] [place], [place] [address] [address], [id number], [place] [phone] [facility] No Information 7 Ashia Guerra. [address] [facility], [place] [address], [place], [place], [id number] , [place]. tel: [phone] Independent Medical Examination MAR[facility]A [facility], [address], [place], [place], [id number], [place] tel:[phone] [facility] left shoulder (chief complaint) Pain in left shoulder 7 Ashia Guerra. [address] [facility], [address], [place], [place], [id number] , [place]. tel: [phone] Family History Family Member Type Diagnosis Age At Onset Problem (finding) No family history of Di abetes mellitus Father Problem (finding) hypertension Father Problem (finding) stroke Immunizations Vaccine Date Status Comments Flu (split) (3 yrs or older) refused Source: Other Provider Payers Payer name Insurance type Covered republican ID Tyler zaragoza(s) Susana Howe [id number] Social History Type Description Quantity Date Captured [...]
--- OUTSIDE RECORDS SUMMARY | 2024-11-02 06:16 | XMS_ITS | Encounter Summary ---
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
--- OUTSIDE RECORDS SUMMARY | 2024-11-02 06:16 | XMS_ITS | Clinical Summary ---
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
--- OUTSIDE RECORDS SUMMARY | 2024-11-02 06:16 | XMS_ITS | Clinical Summary ---
Author Organization [facility] ([facility] Remberto Romanalfonzo Address [address] [place] [address] Care Team Providers Care Redye Hand Name Role Phone Leonardo Gomez MD Primary Care Provider [phone] Allergies No known active allergies Medications lidocaine-priloc [...] Max Daily Amount: 4 Tablets 20 Tablet 09/17/19 25 Active Active Problems Problem Noted Date Diagnosed Date Colon cancer 05/31/2019 Encounters Date Type Department Care Team Description 09/16/2024 Refill [facility] Oncology and Hematology - [place] [address] [facility] [address] [place] [phone] Alierza Bach MD Malignant neoplasm of hepatic flexure (CMS/HCC) 09/08/2024 External Device Data ST[facility] ABSTRACTION Provider, Abstract 08/28/2024 External Device Data ST[facility] ABSTRACTION Provider, [...] Date Smoking Tobacco: Every Day Cigarettes 2 34.9 Started: 05/14/1988; Last attempted to quit: 05/14/2018 [...] Blood Pressure 136/92 06/07/2024 11:01 AM SENIOR LOSS CONTROL SPECIALIST Pulse 75 06/07/2024 11:00 AM SENIOR LOSS CONTROL SPECIALIST Temperature 36.8 C (98.2 F) 06/07/2024 11:00 AM SENIOR LOSS CONTROL SPECIALIST Respiratory Rate 17 06/07/2024 11:00 AM SENIOR LOSS CONTROL SPECIALIST Oxygen Saturation 91% 06/07/2024 11:00 AM SENIOR LOSS CONTROL SPECIALIST Inhaled Oxygen Concentration - - Weight 82.6 kg (182 lb 3.2 oz) 06/07/2024 11:00 AM SENIOR LOSS CONTROL SPECIALIST Height 172.7 cm (5' 8 ) 12/07/2021 8:36 AM CDT Body Mass Index 27.7 12/07/2021 8:36 AM CDT Plan of Treatment Upcoming Encounters Date Type Department Care Team (Late st Contact Info) Description 12/20/2024 10:00 AM CDT Office Visit [facility] Oncology and Hematology - [place] [address] [facility] [address] [place] [address] Alireza Bach MD [address] [facility] [address] [place] [address] Health Maintenance Due Date Last Done Comments Pre-Diabetes and Diabetes Screening 1962 DTAP/TDAP/TD VACCINES (1 - Tdap) 1981 Lung Cancer Screening 2012 ZOSTER VACCINE (1 of 2) 2012 INFLUENZA VACCINE (#1) 2024 RSV VACCINE (60+ or ) (1 - 1-dose 75+ series) 2037 Insurance [facility] CHOICE [id number] Care Teams Redye Hand Relationship Specialty Start Date End Date Leonardo Gomez MD [address] [place] [address] PCP - General Family Practice 03/29/19
--- OUTSIDE RECORDS SUMMARY | 2024-11-02 06:16 | XMS_ITS | Clinical Summary ---
Author Organization 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
--- NOTE | 2024-11-02 06:23 | ED_ITS ---
HPI - Chest Pain General Chief Complaint: Chest Pain Stated Complaint: chest pain Time Seen by Provider: 11/02/24 06:23 Source: patient Mode of arrival: ambulatory Limitations: no limitations History of Present Illness HPI narrative: Patient is a 64-year-old male with some chest pain this morning while headed into work. He is having lots of stress with work at this time. He is in to farming and agriculture. Chest pain is substernal midline and gives a left hand numbness. The pain comes and goes over the last day but now it has stayed this morning. Be a knowles is left hand and left upper extremity. He has COPD and continues to smoke cigarettes. No history of CAD. MD complaint: chest pain Pertinent past history: other ( COPD, GERD) Onset (ago): hour(s) (2) Timing of current episode: constant and stable Prior episodes: No Onset: during rest, during exertion and after eating Pain location: substernal, left chest and parasternal Pain radiation: left arm ( into forearm and hand with numbness tingling) Severity: mild Pain scale (0-10): 3 Quality: tightness and sharp Relieving factors: nothing Exacerbating factors: stress Context: other ( patient having progressively worse chest pain over the past few hours this morning and then resolving.) Associated symptoms: other ( None) Risk Factors Coronary artery disease risk factors: smoking history Thoracic aortic dissection risk factors: none Related Data Home Medications ?Medication ?Instructions ?Recorded ?Confirmed ?Last Taken ?Type wefffhxx-[id number]-rrwod 300 mcg-K 60 1 tablet PO DAILY 05/05/19 09/07/24 09/06/24 History mcg-lycop 600 mcg-lutein 300 mcg tablet (Centrum Silver Men) aspirin 325 mg tablet 325 mg PO DAILY 04/27/20 09/07/24 09/06/24 History albuterol sulfate 90 mcg/actuation 2 puff inhalation QID PRN 05/05/23 09/06/24 Unknown History aerosol inhaler Shortness Of Breath albuterol sulfate 2.5 mg/3 mL 2.5 mg inhalation Q6H PRN 09/06/24 09/06/24 Unknown History (0.083 %) solution for nebulization shortness of breath or wheezing Allergies Allergy/AdvReac Type Severity Reaction Status Date / Time No Known Allergies Allergy Verified 09/07/24 06:46 Review of Systems 2 Review of Systems: All systems reviewed & are unremarkable except as noted in HPI and below Constitutional: Constitutional: Reports no additional constitutional complaints Eyes: Eyes: Reports no additional eye complaints ENT: Reports system reviewed and no additional complaints, except as documented Cardiovascular: Cardiovascular: Reports no additional cardiovascular complaints Respiratory: Respiratory: Reports no additional respiratory complaints Gastrointestinal: Gastrointestinal: Reports no additional gastrointestinal complaints Genitourinary: Genitourinary: Reports no additional male genitourinary complaints Musculoskeletal: Musculoskeletal: Reports no additional musculoskeletal complaints Integumentary/Breasts: Skin/Breast: Reports system reviewed and no additional complaints, except as docu Neurologic: Reports system reviewed and no additional complaints, except as documented Psychiatric: Psychiatric: Reports no additional psychiatric complaints Endocrine: Endocrine: Reports no additional endocrine complaints Hematologic/Lymphatic: Hematologic/Lymphatic: Reports no additional hematologic/lymphatic complaints Allergic/Immunologic: Allergic/Immunologic: Reports no additional allergic/immunologic complaints [facility] Past Medical History Medical History BMI 29.0-29.9,adult History of trigger finger Incisional hernia of anterior abdominal wall without obstruction or gangrene Port-A-Cath in place (~2017) Malignant neoplasm of hepatic flexure Status post resection and reanastomosis. Chemotherapy now in progress now COPD (chronic obstructive pulmonary disease) Surgical History Surgical History History of rotator cuff surgery H/O right hemicolectomy H/O hernia repair 03/07/2020: Retrorectus recurrent incarcerated hernia repair with Prolene soft mesh, THUY transverse abdominus myofascial flap advancement (3cm on left, 3cm on right) removal mesh foreign body. Family History Family History Mother Family history of malignant neoplasm of breast in first degree relative Social History Social History Smoking packs per day: 1.5 Smoking cigarettes per day: 30.0 Years smoked: 40 Smoking pack-years: 60.00 Smoking status: Current every day smoker Tobacco type: cigarettes Smoking end date: 02/21/20 Additional smoking assessment comments: pt uses chantix has smoked off and on for years, not smoking now Alcohol intake: current Drinks per week: 4 Substance use: current Substance use type: opiates Last use: 09/04/24 Living arrangements: with family Additional living arrangements comments: with sp Gender identity (if verbalized by the patient): Male Spiritual care concerns: No Exam 2 Const: General: healthy appearing Nutritional Appearance: well nourished Orientation/consciousness: patient oriented x3 HENMT: Head: normal to inspection Ears: external ears normal F rodolfo/Nose/Sinus: Normal external nose present Eyes: Conjunctivae: conjunctivae normal Pupils: Equal, round and reactive pupils present EOM: EOMs intact bilaterally Neck: Neck: normal visual inspection Chest: Chest palpation & inspection: normal inspection of the chest Resp: Effort & Inspection: normal respiratory effort and not labored A uscultation: clear to auscultation bilaterally and no crackles Cardio: Rate: regular rate Rhythm: regular rhythm Heart sounds: no murmurs GI: Inspection: non-distended GI Palp: Yes Soft to palpation and No Tenderness to palpation present (GI) Auscultation: normal bowel sounds : General: Yes bladder normal to palpation Back/Spine/Pelvis: Back: no CVA tenderness Skin: General skin exam: normal color Rashes: no rashes Wounds: no wounds Neuro: General: patient oriented x3 Cranial nerves: Yes Nystagmus not present Speech: normal speech Gait exam (Neuro): Normal gait present Extrem: General: normal to inspection Psych: Mental Status: mental status grossly normal Affect: No normal affect, No Sad affect present and Anxious affect present Attitude: c ooperative Course Vital Signs Vital signs: Vital Signs Temperature 36.7 C 11/02/24 06:15 Pulse Rate 92 11/02/24 06:15 Respiratory Rate 20 11/02/24 06:15 Blood Pressure 149/103 H 11/02/24 06:15 Pulse Oximetry 95 11/02/24 06:15 Oxygen Delivery Room Air 11/02/24 06:15 Temperature 36.6 C 11/02/24 09:31 Pulse Rate 74 11/02/24 09:31 Respiratory Rate 13 11/02/24 09:31 Blood Pressure 116/78 11/02/24 09:31 Pulse Oximetry 95 11/02/24 09:31 Oxygen Delivery Room Air 11/02/24 06:15 MDM - Chest Pain MDM Narrative Medical decision making narrative: patient is a 64-year-old male with some chest pain this morning. We will do cardio workup this morning. patient still having chest pain after negative workup. We will do nitroglycerin trial and repeat troponin. If continued pain we will go ahead and admit for further evaluation. nitro helped somewhat but the results are equivocal. Lab Data Attestation: I reviewed the patient's lab results. 11/02/24 06:36 11/02/24 06:36 Labs: Lab Results 11/02/24 11/02/24 Range/Units 06:36 08:26 WBC 6.9 (4.8-10.8) K/mm3 RBC 4.82 (4.70-6.10) M/mm3 Hgb 16.6 (14.0-18.0) g/dL Hct 47.6 (40.0-54.0) % MCV 98.8 (78.0-102.0) fL MCH 34.4 H (27.0-31.0) pg MCHC 34.9 (32-36) g/dL RDW 12.5 (11.6-14.4) % Plt Count 186 (150-420) K/mm3 MPV 10.0 (8.7-11.0) fl Immature Gran % (Auto) 0.6 H (0.0-0.0) % Neut % (Auto) 61.0 (50.0-70.0) % Lymph % (Auto) 26.0 (18.0-42.0) % [place] % (Auto) 8.5 (2.0-11.0) % Eos % (Auto) 2.7 (1.0-6.0) % Baso % (Auto) 1.2 H (0.0-1.0) % Lymph # (Auto) 1.80 (1.10-4.50) K/mm3 [place] # (Auto) 0.59 (0.10-0.90) K/mm3 Eos # (Auto) 0.19 (0.02-0.50) K/mm3 Baso # (Auto) 0.08 (0.00-0.10) K/mm3 Abs Immat Gran (auto) 0.04 H (0.00-0.00) K/mm3 Absolute Neuts (auto) 4.21 (1.70-7.20) K/mm3 Absolute Nucleated RBC 0.00 (0.00-0.00) K/mm3 Nucleated RBC % 0.0 (0-0.0) % PT 9.9 (9.50-12.1) Seconds INR 0.9 APTT 26.8 (23.9-30.70) Sec D-Dimer 0.33 (0.19-0.50) mg/L Sodium 139 (137-145) mmol/L Potassium 3.5 (3.4-5.0) mmol/L Chloride 106 (98-107) mmol/L Carbon Dioxide 23 (22-30) mmol/L Anion Gap 10 (4-12) mmol/L BUN 8 L (9-20) mg/dL Creatinine 0.70 (0.7-1.3) mg/dL Estim Creat Clear Calc 91 ml/min Estimated GFR > 60 (59 - ) Glucose 110 (65-110) mg/dL Calculated Osmolality 287 (285-295) mOsm/kg Calcium 8.8 (8.4-10.2) mg/dL Total Bilirubin 0.8 (0.2-1.3) mg/dL AST 50 (17-59) U/L ALT 33 (6-50) U/L Alkaline Phosphatase 64 (38-126) U/L Troponin I < 0.012 < 0.012 (0.000-0.034) ng/mL NT-Pro-B Natriuret Pep 40 (19.9-100) pg/mL Total Protein 7.2 (6.3-8.2) g/dL Albumin 4.4 (3.5-5.1) g/dL Imaging Data Attestation: I personally reviewed and interpreted this imaging study as follows: Radiologist's impression: Chest x-ray is negative for acute process ECG Data EKG #1: Attestation: I personally reviewed and interpreted this ECG as follows: ECG completion date: 11/02/24 ECG completion time: 06:39 EKG Interpretation: normal rate, sinus rhythm, no ectopy, no ST changes, normal QRS, normal QT, NL axis and no acute changes EKG #2: Attestation: I personally reviewed and interpreted this ECG as follows: ECG completion date: 11/02/24 ECG completion time: 09:38 EKG Interpretation: normal rate, sinus rhythm, no ectopy, no ST changes, normal QRS, normal QT, NL axis and no acute changes Discharge Plan Discharge Clinical Impression: Atypical chest pain Patient Disposition: Home Condition: Stable Instructions: Chest Pain (ED) Additional Instructions: please follow-up with the primary doctor in the next week. You will need further cardiac workup to include a stress test and an echocardiogram with your primary doctor in the next few weeks. Please come back to the emergency room for continued chest pain. Patient Language: [place] Citizen Prescriptions: New nitroglycerin 0.4 mg tablet, sublingual 0.4 mg sublingual Q5M PRN (Reason: chest pain) Qty: 20 0RF Rx Instructions: do not exceed 3 doses per episode No Action albuterol sulfate 90 mcg/actuation HFA aerosol inhaler 2 puff INHALATION QID PRN (Reason: Shortness Of Breath) budesonide-formoterol [Breyna] 160-4.5 mcg/actuation HFA aerosol inhaler 1 inh inhalation Q12H Qty: 10.2 0RF Patient Comments: Not taking prednisone 20 mg tablet 40 mg PO DAILY 5 Days Qty: 10 0RF Patient Comments: Not taking levofloxacin 750 mg tablet 750 mg PO DAILY Qty: 7 5RF Patient Comments: Not taking Centrum Silver Men 300-600-300 mcg Tablet 1 tablet PO DAILY omeprazole 40 mg capsule,delayed release(DR/EC) 40 mg PO BID Qty: 60 3RF Patient Comments: Only takes as needed aspirin 325 mg Tablet 325 mg PO DAILY albuterol sulfate 2.5 mg /3 mL (0.083 %) solution for nebulization 2.5 mg inhalation Q6H PRN (Reason: shortness of breath or wheezing) metoclopramide HCl 10 mg tablet See Rx Instructions .ROUTE .COMPLEX Qty: 120 0RF Dose Instruction: TAKE ONE TABLET ORALLY BEFORE MEALS AND AT BEDTIME Rx Instructions: TAKE ONE TABLET ORALLY BEFORE MEALS AND AT BEDTIME Follow-up/Referrals: Leonardo Gomez MD [Primary Care Provider] - Stand Alone Forms: Work/School Release IP Time of Disposition: 09:36
[2024-11-02] MEDS: ASPIRIN 81 MG CHEWABLE TABLET 324 MG PO (06:37)
[2024-11-02 06:46] LABS: Basophils Absolute Auto 0.08 K/mm3 (0.00-0.10); Basophils Percent Auto 1.2 % (0.0-1.0); Eosinophils Absolute Auto 0.19 K/mm3 (0.02-0.50); Eosinophils Percent Auto 2.7 % (1.0-6.0); Hematocrit 47.6 % (40.0-54.0); Hemoglobin 16.6 g/dL (14.0-18.0); Immature Granulocyte Absolute 0.04 K/mm3 (0.00-0.00); Immature Granulocyte Percent A 0.6 % (0.0-0.0); Mean Corpuscular HGB Conc 34.9 g/dL (32-36); Mean Corpuscular Hemoglobin 34.4 pg (27.0-31.0); Mean Corpuscular Volume 98.8 fL (78.0-102.0); Monocytes Absolute Auto 0.59 K/mm3 (0.10-0.90); Monocytes Percent Auto 8.5 % (2.0-11.0); Neutrophils Absolute Auto 4.21 K/mm3 (1.70-7.20); Platelet Count Result 186 K/mm3 (150-420); Red Blood Count 4.82 M/mm3 (4.70-6.10); Red Cell Distribution Width 12.5 % (11.6-14.4); White Blood Count 6.9 K/mm3 (4.8-10.8)
[2024-11-02 06:48] LABS: Alanine Aminotransferase 33 U/L (6-50); Albumin Level 4.4 g/dL (3.5-5.1); Alkaline Phosphatase 64 U/L (38-126); Anion Gap 10 mmol/L (4-12); Aspartate Amino Transferase 50 U/L (17-59); Bilirubin,Total 0.8 mg/dL (0.2-1.3); Blood Urea Nitrogen 8 mg/dL (9-20); Calcium 8.8 mg/dL (8.4-10.2); Carbon Dioxide 23 mmol/L (22-30); Chloride 106 mmol/L (98-107); Estimated CRCL calculation 91 ml/min; Estimated Glomerular Filt Rate > 60; Glucose 110 mg/dL (65-110); Osmolality Calculated 287 mOsm/kg (285-295); Potassium 3.5 mmol/L (3.4-5.0); Sodium 139 mmol/L (137-145); Total Protein 7.2 g/dL (6.3-8.2)
[2024-11-02 07:00] LABS: D Dimer 0.33 mg/L (0.19-0.50); INR 0.9; NT Pro B Type Natriuretic Pept 40 pg/mL (19.9-100); Partial Thromboplastin Time 26.8 Sec (23.9-30.70); Prothrombin Time 9.9 Seconds (9.50-12.1); Troponin I < 0.012 ng/mL (0.000-0.034)
--- OUTSIDE RECORDS SUMMARY | 2024-11-02 07:04 | XMS_ITS | Continuity of Care Document ---
Author Organization [facility] Address [address] [place] [address] Phone Care Team Providers Care Automotive Parts Salesperson Name Role Phone Charlie Ang MD Unavailable [...] Diagnoses Date Provider Providers Copied on Encounter [employer], [address] [place], [place] [address], [id number], [place] [phone] [facility] [employer] [facility] No Information 7 Ashia Guerra. [address] [facility] [place] [address], [place], [place], [id number] , [place]. tel: [phone] Independent Medical Examination [facility], [address], [place], [place], [id number], [place] tel:[phone] [facility] left shoulder (chief complaint) Pain in left shoulder 7 Ashia Guerra. [address] [facility] [address], [address], [place], [place], [id number] , [place]. tel: [phone] Family History Family Member Type Diagnosis Age At Onset Problem (finding) No family history of Di abetes mellitus Father Problem (finding) hypertension Father Problem (finding) stroke Immunizations Vaccine Date Status Comments Flu (split) (3 yrs or older) refused Source: Other Provider Payers Payer name Insurance type Covered constitution party ID Tyler zaragoza(s) Susana Howe [id number] Social History Type Description Quantity Date Captured [...]
--- OUTSIDE RECORDS SUMMARY | 2024-11-02 07:04 | XMS_ITS | Clinical Summary ---
Author Organization [facility] Remberto Romanalfonzo Address [address] [place] [address] Care Team Providers Care Reheat Furnace Operator Name Role Phone Leonardo Gomez MD Primary Care Provider [phone] Allergies No known active allergies Medications lidocaine-priloc [...] Type Department Care Team Description 09/16/2024 Refill [facility] Oncology and Hematology - [place] [address] [facility] [address] [place] [id number] Alireza Bach MD Malignant neoplasm of hepatic [...] Comments Blood Pressure 136/92 06/07/2024 11:01 AM MANAGER HELPDESK Pulse 75 06/07/2024 11:00 AM MANAGER HELPDESK Temperature 36.8 C (98.2 F) 06/07/2024 11:00 AM MANAGER HELPDESK Respiratory Rate 17 06/07/2024 11:00 AM MANAGER HELPDESK Oxygen Saturation 91% 06/07/2024 11:00 AM MANAGER HELPDESK Inhaled Oxygen Concentration - - Weight 82.6 kg (182 lb 3.2 oz) 06/07/2024 11:00 AM MANAGER HELPDESK Height 172.7 cm (5' 8 ) 12/07/2021 8:36 AM CDT Body Mass Index 27.7 12/07/2021 8:36 AM CDT Plan of Treatment Upcoming Encounters Date Type Department Care Team (Late st Contact Info) Description 12/20/2024 10:00 AM CDT Office Visit [facility] Oncology and Hematology - [place] [address] [facility] [address] [place] [address] Alireza Bach MD [address] [facility] [address] [place] [address] Health Maintenance Due Date Last Done Comments Pre-Diabetes and Diabetes Screening 1962 DTAP/TDAP/TD VACCINES (1 - Tdap) 1981 Lung Cancer Screening 2012 ZOSTER VACCINE (1 of 2) 2012 INFLUENZA VACCINE (#1) 2024 RSV VACCINE (60+ or ) (1 - 1-dose 75+ series) 2037 Insurance [facility] CHOICE [id number] Care Teams Reheat Furnace Operator Relationship Specialty Start Date End Date Leonardo Gomez MD [address] [place] [address] PCP - General Family Practice 03/29/19
--- OUTSIDE RECORDS SUMMARY | 2024-11-02 07:04 | XMS_ITS | Encounter Summary ---
Author Organization [facility] Address [address] [place] [address] Care Team Providers Care Tip Tester Name Role Phone Leonardo Gomez MD Primary Care Provider [phone] Encounter Details Date Type Department Care Team (Late st Contact Info) Description 11/28/2018 Abstract [facility]FL CONVERSION [address] [place] [address] , Generic Conversion, Social History Tobacco Use Types Packs/Day Years Used Date Smoking Tobacco: Never Assessed Sex and Gender Information Value Date Recorded Sex Assigned at Not on file Legal Sex Male 12:13 PM DOCUMENTATION ANALYST Gender Identity Not on file Sexual Orientation Not on file documented as of this encounter Plan of Treatment Not on file documented as of this encounter Visit Diagnoses Not on filedocumented in this encounter Care Teams Tip Tester Relationship Specialty Start Date End Date Leonardo Gomez MD [address] [place] [address] PCP - General FAMILY PRACTICE 02/26/24 documented as of this encounter
--- OUTSIDE RECORDS SUMMARY | 2024-11-02 07:04 | XMS_ITS | Clinical Summary ---
Author Organization [facility] Address [address] [place] [address] Care Team Providers Care Electronics Engineering Manager Name Role Phone Leonardo Gomez MD Primary [...] on file Legal Sex Male 6:35 AM GUEST SERVICES Gender Identity Not on file Sexual Orientation [...] 2012 Influenza Vaccine (Season Ended) 2025 Insurance [employer] [place] [employer] [place] [employer] [place] Advance Directives For more information, please contact: [phone] * Full Code (Latest Code Status on File) Date Activated Date Inactivated Comments 03/12/2023 3:52 PM 03/14/2023 8:07 PM Care Teams Electronics Engineering Manager Relationship Specialty Start Date End Date Leonardo Gomez MD [address] [place] [address] PCP - General Family Medicine 03/11/23
--- OUTSIDE RECORDS SUMMARY | 2024-11-02 07:04 | XMS_ITS | Clinical Summary ---
Author Organization [facility] Address [address] [place] [address] Care Team Providers Care Prototype Special Build Name Role Phone Leonardo Gomez MD Primary Care Provider [phone] Allergies No known active allergies Medications No known medications Social History Tobacco Use Types Packs/Day Years Used Date Smoking Tobacco: Every Day Cigarettes Smokeless Tobacco: Never Tobacco Cessation:Ready to Q uit: Not Asked; Counseling Given: Not Answered Sex and Gender Information Value Date Recorded Sex Assigned at Not on file Legal Sex Male 12:13 PM DOCUMENT CONTROL CLERK Gender Identity Not on file Sexual Orientation [...] Insurance [employer] Care Teams Prototype Special Build Relationship Specialty Start Date End Date Leonardo Gomez MD [address] [place] [address] PCP - General FAMILY PRACTICE 02/26/24
--- OUTSIDE RECORDS SUMMARY | 2024-11-02 07:04 | XMS_ITS | Referral Summary ---
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
[2024-11-02] MEDS: NITROGLYCERIN SL 0.4 MG TABLET SUBLINGUAL (07:15)
--- NOTE | 2024-11-02 08:21 | ECG_ITS ---
Test Date: 2024-11-02 08:43:54 Measurements Intervals [place] Rate: 76 P: 57 ND: 140 QRS: 61 QRSD: 100 T: 71 QT: 364 QTc: 411 Interpretive Statements SINUS RHYTHM WITH SINUS ARRHYTHMIA Compared to ECG 11/02/2024 06:20:42 No significant changes Electronically Signed On 11-02-2024 14:00:07 CDT by Lizandro Estrada M.D.
[2024-11-02 09:16] LABS: Troponin I < 0.012 ng/mL (0.000-0.034)
== END 2024-11-02 09:40 | disposition home or self-care (01) ==
PROVIDERS: Emergency Provider Emergency Medicine; PCP Family Medicine
DX: R07.89 Other chest pain (principal); J44.9 Chronic obstructive pulmonary disease, unspecified; F17.210 Nicotine dependence, cigarettes, uncomplicated; Z79.82 Long term (current) use of aspirin
CPT/HCPCS: 36415; 71045; 80053; 83880; 84484; 85025; 85380; 85610; 85730; 93005; 99284; A9270

== ENCOUNTER 2024-11-17 07:04 | Outpatient (CLI) | payer OTHER, SELFPAY ==
--- OUTSIDE RECORDS SUMMARY | 2024-11-17 07:10 | XMS_ITS | Referral Summary ---
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 ACCOUNT REPRESENTATIVE Gender Identity Not on file Sexual Orientation [...] 9:08 AM CDT Height 172.7 cm (5' 8) 04/02/2023 9:08 AM CDT Body Mass Index 26.61 04/02/2023 9:08 AM CDT Plan of Treatment Not on file Insurance [facility] [place] For more information, please contact: [phone] * Full Code (Latest Code Status on File) Date Activated Date Inactivated Comments 03/12/2023 3:52 PM 03/14/2023 8:07 PM Care Teams Emergency Medical Technician/Driver Relationship Specialty Start Date End Date Leonardo Gomez MD [address] [place] [address] PCP - General Family Medicine 03/11/23
--- OUTSIDE RECORDS SUMMARY | 2024-11-17 07:10 | XMS_ITS | Clinical Summary ---
Author Organization [facility] Address [address] [place] [address] Care Team Providers Care Farm Equipment Maintenance Supervisor Name Role Phone Leonardo Gomez MD [...] on file Legal Sex Male 6:35 AM PHP WEBSITE DEVELOPER Gender Identity Not on file Sexual Orientation [...] 2012 Influenza Vaccine (Season Ended) 2025 [place] Advance Directives For more information, please contact: [phone] * Full Code (Latest Code Status on File) Date Activated Date Inactivated Comments 03/12/2023 3:52 PM 03/14/2023 8:07 PM Care Teams Farm Equipment Maintenance Supervisor Relationship Specialty Start Date End Date Leonardo Gomez MD [address] [place] [address] PCP - General Family Medicine 03/11/23
--- OUTSIDE RECORDS SUMMARY | 2024-11-17 07:10 | XMS_ITS | Clinical Summary ---
Author Organization [facility] Remberto Romanalfonzo Address [address] [place] [address] Care Team Providers Care Adjunct Art History Instructor Name Role Phone Leonardo Gomez MD Primary Care Provider [phone] Allergies No known active allergies Medications lidocaine-priloc [...] Encounters Date Type Department Care Team Description 11/11/2024 External Device Data STL ABSTRACTION Provider, Abstract 11/09/2024 External Device Data STL ABSTRACTION Provider, Abstract 09/16/2024 Refill [facility] Oncology and Hematology - [place] [facility]7 Rakan Morton [address] [place] [address] Alireza Bach MD Malignant neoplasm of hepatic [...] Date Smoking Tobacco: Every Day Cigarettes 2 35 Started: 05/14/1988; Last attempted to quit: 05/14/2018 [...] Comments Blood Pressure 136/92 06/07/2024 11:01 AM PERSONAL CARE SERVICE PROVIDER Pulse 75 06/07/2024 11:00 AM PERSONAL CARE SERVICE PROVIDER Temperature 36.8 C (98.2 F) 06/07/2024 11:00 AM PERSONAL CARE SERVICE PROVIDER Respiratory Rate 17 06/07/2024 11:00 AM PERSONAL CARE SERVICE PROVIDER Oxygen Saturation 91% 06/07/2024 11:00 AM PERSONAL CARE SERVICE PROVIDER Inhaled Oxygen Concentration - - Weight 82.6 kg (182 lb 3.2 oz) 06/07/2024 11:00 AM PERSONAL CARE SERVICE PROVIDER Height 172.7 cm (5' 8) 12/07/2021 8:36 AM CDT Body Mass Index 27.7 12/07/2021 8:36 AM CDT Plan of Treatment Upcoming Encounters Date Type Department Care Team (Late st Contact Info) Description 12/20/2024 10:00 AM CDT Office Visit [facility] Oncology and Hematology - [place] [address] [facility] [address] [place] [address] Alireza Bach MD [address] [facility] [address] [place] [address] Health Maintenance Due Date Last Done Comments Pre-Diabetes and Diabetes Screening 1960 DTAP/TDAP/TD VACCINES (1 - Tdap) 1981 Lung Cancer Screening 2012 ZOSTER VACCINE (1 of 2) 2012 INFLUENZA VACCINE (#1) 2024 RSV VACCINE (60+ or ) (1 - 1-dose 75+ series) 2037 Insurance [facility] CHOICE [id number] Care Teams Adjunct Art History Instructor Relationship Specialty Start Date End Date Leonardo Gomez MD [address] [place] [address] PCP - General Family Practice 03/29/19
--- OUTSIDE RECORDS SUMMARY | 2024-11-17 07:10 | XMS_ITS | Continuity of Care Document ---
Author Organization [facility] Address [address] [place] [address] Phone Care Team Providers Care Surveyor Rod Helper Name Role Phone Charlie Ang MD, MD [...] Date Provider Providers Copied on Encounter [facility], [address] [facility] [address], [id number], tel:[phone] [facility] No Information 7 Ashia Guerra. [address] [facility], [place] [address], [place], [place], [id number] , [place]. tel: [phone] Independent Medical Examination MARÍA [facility], [address] [facility] [address], [place], [place], [id number], [place] tel:[phone] [facility] left shoulder (chief complaint) Pain in left shoulder Ashia Guerra. [address] [facility], [address], [place], [place], [id number] , [place]. tel: [phone] Family History Family Member Type Diagnosis Age At Onset Problem (finding) No family history of Di abetes mellitus Father Problem (finding) hypertension Father Problem (finding) stroke Immunizations Vaccine Date Status Comments Flu (split) (3 yrs or older) refused Source: Other Provider Payers Payer name Insurance type Covered green party ID Authortaylora nik(s) Susana Howe [id number] Social History Type Description Quantity Date Captured [...]
[2024-11-17 08:03] LABS: Anion Gap 6 mmol/L (4-12); Blood Urea Nitrogen 11 mg/dL (9-20); Carbon Dioxide 29 mmol/L (22-30); Chloride 106 mmol/L (98-107); Estimated Glomerular Filt Rate > 60; Glucose 114 mg/dL (65-110); Osmolality Calculated 292 mOsm/kg (285-295); Potassium 4.2 mmol/L (3.4-5.0); Sodium 141 mmol/L (137-145)
== END 2024-11-17 07:05 | disposition home or self-care (01) ==
LOC: CHSLAB 07:05
PROVIDERS: PCP Family Medicine; Visit Provider Family Medicine
DX: I10 Essential (primary) hypertension (principal)
CPT/HCPCS: 36415; 80048

== ENCOUNTER 2024-11-22 07:43 | Outpatient (CLI) | payer OTHER, SELFPAY ==
--- OUTSIDE RECORDS SUMMARY | 2024-11-22 07:46 | XMS_ITS | Continuity of Care Document ---
Author Organization [facility] Address [address] [facility] [place] [address] Phone Care Team Providers Care Print And Pattern Designer Name Role Phone Charlie Ang MD, MD [...] Date Provider Providers Copied on Encounter [facility] [employer], [address] [facility] [address], [id number], tel:[phone] [facility] [employer] No Information 7 Ashia Guerra. [address] [facility], [place] [address], [place], [place], [id number] , [place]. tel: [phone] Independent Medical Examination MARÍA [facility], [address] [facility] [address], [place], [place], [id number], [place] tel:[phone] [facility] left shoulder (chief complaint) Pain in left shoulder Ashia Guerra. [address] [facility], [address], [place], [place], [id number] , [place]. tel: [phone] Family History Family Member Type Diagnosis Age At Onset Problem (finding) No family history of Di abetes mellitus Father Problem (finding) hypertension Father Problem (finding) stroke Immunizations Vaccine Date Status Comments Flu (split) (3 yrs or older) refused Source: Other Provider Payers Payer name Insurance type Covered constitution party ID Authortaylora nik(s) Susana Howe [id number] Social History Type Description Quantity Date Captured [...]
--- OUTSIDE RECORDS SUMMARY | 2024-11-22 07:46 | XMS_ITS | Clinical Summary ---
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
--- OUTSIDE RECORDS SUMMARY | 2024-11-22 07:46 | XMS_ITS | Referral Summary ---
Author Organization 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
--- OUTSIDE RECORDS SUMMARY | 2024-11-22 07:46 | XMS_ITS | Clinical Summary ---
Author Organization [facility] Remberto Romanalfonzo Address [address] [place] [address] Care Team Providers Care Deck Mate Name Role Phone Leonardo Gomez MD Primary Care Provider [phone] Allergies No known active allergies Medications lidocaine-priloc [...] Data STL ABSTRACTION Provider, Abstract 09/16/2024 Refill [facility] Oncology and Hematology - [facility]7 Rakan Morton [address] [place] [address] Alireza Bach MD Malignant neoplasm of [...] Comments Blood Pressure 136/92 06/07/2024 11:01 AM DIETARY AIDE Pulse 75 06/07/2024 11:00 AM DIETARY AIDE Temperature 36.8 C (98.2 F) 06/07/2024 11:00 AM DIETARY AIDE Respiratory Rate 17 06/07/2024 11:00 AM DIETARY AIDE Oxygen Saturation 91% 06/07/2024 11:00 AM DIETARY AIDE Inhaled Oxygen Concentration - - Weight 82.6 kg (182 lb 3.2 oz) 06/07/2024 11:00 AM DIETARY AIDE Height 172.7 cm (5' 8) 12/07/2021 8:36 AM CDT Body Mass Index 27.7 12/07/2021 8:36 AM CDT Plan of Treatment Upcoming Encounters Date Type Department Care Team (Late st Contact Info) Description 12/20/2024 10:00 AM CDT Office Visit [facility] Oncology and Hematology - [place] [address] [facility] [address] [place] [address] Alireza Bach MD [address] [facility] [address] [place] [address] Health Maintenance Due Date Last Done Comments Pre-Diabetes and Diabetes Screening 1962 DTAP/TDAP/TD VACCINES (1 - Tdap) 1981 Lung Cancer Screening 2012 ZOSTER VACCINE (1 of 2) 2012 INFLUENZA VACCINE (#1) 2024 RSV VACCINE (60+ or ) (1 - 1-dose 75+ series) 2037 Insurance [facility] CHOICE [id number] Care Teams Deck Mate Relationship Specialty Start Date End Date Leonardo Gomez MD [address] [place] [address] PCP - General Family Practice 03/29/19
--- NOTE | 2024-11-22 07:49 | EST_ITS ---
Patient Info Name: Wesley Colon Age: 64 years : 1960 Gender: Male Ht: 68 in Wt: 179 lbs BSA: 1.99 m2 HR: 76 bpm BP: 117 / 94 mmHg Heart Rhythm: Sinus Rhythm, Sinus Arrhythmia, Incomplete RBBB Technical Quality: Good Exam Date: 11/22/2024 7:49 AM Patient Status: O Admit Date: 11/22/2024 Exam Type: CA stress aftab w NM A regadenoson stress test was performed. Staff Referring Physician: Leonardo Gomez MD Attending Provider: Leonardo Gomez MD Summary 1. 1. Negative lexiscan stress test for ischemic ST changes by ECG criteria. 2. 2. Stable hemodynamics throughout the test. 3. 3. Nuclear scan to follow and will be reported separately. Please correlate with it. 4. 4. Patient informed of the above results. History/Risk Factors Hypertension: Yes COPD: On Meds Protocol: LEXISCAN Stress ECG Details Stage: REST Duration (min): 2 min : 21 sec HR (bpm): 78 SBP (mmHg): 117 DBP (mmHg): 94 Stage: REST Duration (min): 13 min : 59 sec HR (bpm): 81 SBP (mmHg): 117 DBP (mmHg): 94 Stage: STAGE 1 Duration (min): 0 min : 24 sec HR (bpm): 75 SBP (mmHg): 117 DBP (mmHg): 94 Stage: RECOVERY Duration (min): 0 min : 35 sec HR (bpm): 101 SBP (mmHg): 117 DBP (mmHg): 94 Stage: RECOVERY Duration (min): 1 min : 35 sec HR (bpm): 111 SBP (mmHg): 117 DBP (mmHg): 94 Stage: RECOVERY Duration (min): 2 min : 35 sec HR (bpm): 104 SBP (mmHg): 132 DBP (mmHg): 79 Stage: RECOVERY Duration (min): 3 min : 35 sec HR (bpm): 107 SBP (mmHg): 128 DBP (mmHg): 82 Stage: RECOVERY Duration (min): 4 min : 35 sec HR (bpm): 99 SBP (mmHg): 125 DBP (mmHg): 82 Stage: RECOVERY Duration (min): 5 min : 35 sec HR (bpm): 103 SBP (mmHg): 124 DBP (mmHg): 82 Stage: RECOVERY Duration (min): 6 min : 35 sec HR (bpm): 99 SBP (mmHg): 124 DBP (mmHg): 82 Rest HR: 81 bpm Peak HR: 115 bpm Rest Sys BP: 117 mmHg Peak Sys BP: 135 mmHg Max Pred HR: 158 bpm % Max Pred HR: 73 % Target HR: 134 bpm Max RPP: 15,525 bpm*mmHg BP Response: Normal blood pressure response Termination Reason: Completed Protocol Cardiac Symptoms: None Total Time: 0 min : 24 sec Rest Yung BP: 94 mmHg Peak Yung BP: 72 mmHg Total Dose: 0.4 mg Resting ECG Sinus rhythm with sinus arrhythmia and incomplete RBBB. Stress ECG No abnormal ST/T wave changes. Arrhythmias None. Report Signatures
--- NOTE | 2024-11-22 14:10 | WPDCARIOSTRE ---
Nuclear Stress Test INDICATIONS Indications: Chest pain PROCEDURE Procedure Performed: Myocardial Perf Spect-Multi Procedure: Patient underwent a lexiscan stress test and immediately was injected with 33.6 mCi of cardiolyte. Multiple tomographic images were obtained. These are of good quality. There is a small size, mild inferoseptal and inferior perfusion defects with stress imaging. A separate resting images were obtained after patient was injected with 10.7 mCi of cardiolyte. Multiple tomographic images were obtained. These are of good quality. There is a small size, mild inferoseptal and inferior perfusion defects with rest imaging. CONCLUSION Conclusion: 1. Myocardial perfusion imaging demonstrating a fixed small size inferoseptal and inferior perfusion defects suggestive of diaphragmatic attenuation artifact. 2. No evidence of reversible ischemia. 3. Left ventriculogram demonstrates normal measured ejection fraction of 60% with no wall motion abnormalities. 4. TID score 0.95 is not elevated.
== END 2024-11-22 07:44 | disposition home or self-care (01) ==
LOC: CHSIMG 07:44
PROVIDERS: PCP Family Medicine; Visit Provider Family Medicine
DX: R07.9 Chest pain, unspecified (principal)
CPT/HCPCS: 78452; 93017; A9502; J2785

== ENCOUNTER 2024-12-01 12:11 | Outpatient (CLI) | payer OTHER, SELFPAY ==
--- OUTSIDE RECORDS SUMMARY | 2024-12-01 14:13 | XMS_ITS | Clinical Summary ---
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
--- OUTSIDE RECORDS SUMMARY | 2024-12-01 14:13 | XMS_ITS | Clinical Summary ---
Author Organization [facility] Remberto Romanalfonzo Address [address] [place] [address] Care Team Providers Care Cardiothoracic Anesthesia Technician Name Role Phone Leonardo Gomez MD Primary Care Provider [phone] Allergies No known active allergies Medications lidocaine-priloc [...] Data STL ABSTRACTION Provider, Abstract 09/16/2024 Refill [facility] Oncology and Hematology - [place] [address] [place] [address] Alireza Bach MD Malignant neoplasm of [...] Comments Blood Pressure 136/92 06/07/2024 11:01 AM PHARMACIST'S AIDE Pulse 75 06/07/2024 11:00 AM PHARMACIST'S AIDE Temperature 36.8 C (98.2 F) 06/07/2024 11:00 AM PHARMACIST'S AIDE Respiratory Rate 17 06/07/2024 11:00 AM PHARMACIST'S AIDE Oxygen Saturation 91% 06/07/2024 11:00 AM PHARMACIST'S AIDE Inhaled Oxygen Concentration - - Weight 82.6 kg (182 lb 3.2 oz) 06/07/2024 11:00 AM PHARMACIST'S AIDE Height 172.7 cm (5' 8) 12/07/2021 8:36 AM CDT Body Mass Index 27.7 12/07/2021 8:36 AM CDT Plan of Treatment Upcoming Encounters Date Type Department Care Team (Late st Contact Info) Description 12/20/2024 10:00 AM CDT Office Visit [facility] Oncology and Hematology - [place] [address] [place] [address] Alireza Bach MD [address] [facility] [address] [place] [address] Health Maintenance Due Date Last Done Comments Pre-Diabetes and Diabetes Screening 1962 DTAP/TDAP/TD VACCINES (1 - Tdap) 1981 Lung Cancer Screening 2012 ZOSTER VACCINE (1 of 2) 2012 INFLUENZA VACCINE (#1) 2024 RSV VACCINE (60+ or ) (1 - 1-dose 75+ series) 2037 Insurance [facility] CHOICE [id number] Care Teams Cardiothoracic Anesthesia Technician Relationship Specialty Start Date End Date Leonardo Gomez MD [address] [place] [id number] PCP - General Family Practice 03/29/19
--- OUTSIDE RECORDS SUMMARY | 2024-12-01 14:13 | XMS_ITS | Continuity of Care Document ---
Author Organization [facility] Address [address] [place] [address] Phone Care Team Providers Care Egg Factory Worker Name Role Phone Charlie Ang MD, MD [...] Date Provider Providers Copied on Encounter [facility], [address] [facility], [id number], tel:[phone] [facility] No Information 7 Ashia Guerra. [address] [facility], [place] [address], [place], [place], [id number] , [place]. tel: [phone] Independent Medical Examination MARÍA [facility], [address] [facility] [address], [place], [place], [id number], [place] tel:[phone] [facility] left shoulder (chief complaint) Pain in left shoulder Ashia Guerra. [address] [facility], [place], [place], [id number] , [place]. tel: [phone] Family History Family Member Type Diagnosis Age At Onset Problem (finding) No family history of Di abetes mellitus Father Problem (finding) hypertension Father Problem (finding) stroke Immunizations Vaccine Date Status Comments Flu (split) (3 yrs or older) refused Source: Other Provider Payers Payer name Insurance type Covered libertarian ID Authortaylora nik(s) Susana Howe [id number] Social History Type Description Quantity Date Captured [...]
--- OUTSIDE RECORDS SUMMARY | 2024-12-01 14:13 | XMS_ITS | Referral Summary ---
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
[2024-12-01 15:20] LABS: Cholesterol 225 mg/dL (0-200); HDL Direct 73 mg/dL; LDL Cholesterol Calculated 124 mg/dL (<130); Triglycerides 138 mg/dL (<150)
== END 2024-12-01 12:12 | disposition home or self-care (01) ==
LOC: CHSLAB 12:13
PROVIDERS: PCP Family Medicine; Visit Provider Internal Medicine Cardiovascular Disease
DX: Z72.0 Tobacco use (principal); R94.2 Abnormal results of pulmonary function studies; J98.8 Other specified respiratory disorders
CPT/HCPCS: 36415; 80061; 94060; 94726; 94729

== ENCOUNTER 2024-12-15 08:30 | Outpatient (CLI) | payer OTHER, SELFPAY ==
--- NOTE | ~2024-12-15 | XR_ITS ---
EXAM/PROCEDURE: XR chest 2V - 12/15/2024 8:43 CDT HISTORY: 64 years old Male with J44.1 - Chronic obstructive pulmonary disease with (acute... TECHNIQUE: Two view(s) of the chest. COMPARISON: None available. FINDINGS: LUNGS/ PLEURA: No focal consolidation. No appreciable pneumothorax or large pleural effusion. HEART/ MEDIASTINUM: Heart appears normal in size. BONES: Degenerative changes. Healing fractures of the ribs are seen. Status post ORIF of the left cla vicle. OTHER: Visualized upper abdomen is unremarkable. IMPRESSION: No acute process. Reviewed, dictated and finalized at location A. IMPRESSION: No acute process.
[2024-12-15 08:50] LABS: Basophils Percent Auto 1.4 % (0.0-1.0); Eosinophils Percent Auto 2.7 % (1.0-6.0); Hematocrit 47.3 % (40.0-54.0); Hemoglobin 16.6 g/dL (14.0-18.0); Immature Granulocyte Absolute 0.04 K/mm3 (0.00-0.00); Immature Granulocyte Percent A 0.5 % (0.0-0.0); Lymphocytes Percent Auto 29.8 % (18.0-42.0); Mean Corpuscular HGB Conc 35.1 g/dL (32-36); Mean Corpuscular Hemoglobin 34.7 pg (27.0-31.0); Mean Platelet Volume 9.6 fl (8.7-11.0); Monocytes Absolute Auto 0.73 K/mm3 (0.10-0.90); Monocytes Percent Auto 9.9 % (2.0-11.0); Neutrophils Absolute Auto 4.12 K/mm3 (1.70-7.20); Neutrophils Percent Auto 55.7 % (50.0-70.0); Platelet Count Result 175 K/mm3 (150-420); Red Blood Count 4.78 M/mm3 (4.70-6.10); Red Cell Distribution Width 12.5 % (11.6-14.4); White Blood Count 7.4 K/mm3 (4.8-10.8)
[2024-12-15 09:21] LABS: Alanine Aminotransferase 35 U/L (6-50); Albumin Level 4.4 g/dL (3.5-5.1); Alkaline Phosphatase 66 U/L (38-126); Anion Gap 8 mmol/L (4-12); Aspartate Amino Transferase 42 U/L (17-59); Bilirubin,Total 0.9 mg/dL (0.2-1.3); Blood Urea Nitrogen 13 mg/dL (9-20); Calcium 8.9 mg/dL (8.4-10.2); Carbon Dioxide 26 mmol/L (22-30); Chloride 103 mmol/L (98-107); Estimated Glomerular Filt Rate > 60; Glucose 110 mg/dL (65-110); Osmolality Calculated 285 mOsm/kg (285-295); Potassium 4.4 mmol/L (3.4-5.0); Sodium 137 mmol/L (137-145); Total Protein 6.8 g/dL (6.3-8.2)
== END 2024-12-15 08:31 | disposition home or self-care (01) ==
LOC: CHSIMG 08:33
PROVIDERS: PCP Family Medicine; Visit Provider Physician Assistant
DX: J44.1 Chronic obstructive pulmonary disease with (acute) exacerbation (principal); C18.3 Malignant neoplasm of hepatic flexure
CPT/HCPCS: 36415; 71046; 80053; 82378; 85025

== ENCOUNTER 2024-12-29 08:47 | Outpatient (CLI) | payer OTHER, SELFPAY ==
--- NOTE | ~2024-12-29 | CT_ITS ---
CT of the Abdomen and Pelvis: Indication: Colon cancer Technique: 2.5 mm axial scans were obtained through the abdomen and pelvis following intravenous adm inistration of 100 cc of Omnipaque 350. Dose reduction technique was used on this scan by utilizing a utomated exposure control and iterative reconstruction technique. The dose-length product (DLP) was 5 96.46 mGy-cm. COMPARISON: 08/26/2024 Findings: Scans through the lung bases are unremarkable. Diffuse hepatic steatosis present. The spleen, pancreas, gallbladder, adrenals and kidneys are within normal limits. No evidence of aortic aneurysm. No lymphadenopathy. No bowel obstruction or bowel wall thickening. Status post right hemicolectomy.. Images through the pelvis were performed. Urinary bladder unremarkable. No pelvic mass seen. No ascit es. Impression: No evidence for active malignancy or metastatic disease. Status post right hemicolectomy. Diffuse hepatic steatosis. Reviewed, dictated and finalized at [facility]. Impression: No evidence for active malignancy or metastatic disease. Status post right hemicolectomy. Diffuse hepatic steatosis.
--- OUTSIDE RECORDS SUMMARY | 2024-12-29 08:52 | XMS_ITS | Encounter Summary ---
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
--- OUTSIDE RECORDS SUMMARY | 2024-12-29 08:52 | XMS_ITS | Clinical Summary ---
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
--- OUTSIDE RECORDS SUMMARY | 2024-12-29 08:52 | XMS_ITS | Continuity of Care Document ---
Author Organization [facility] Address [address] [facility] [address] [place] [address] Phone Care Team Providers Care Software Quality Assurance Analyst Name Role Phone Charlie Ang MD, MD [...] Date Provider Providers Copied on Encounter [facility] [employer], [address] [facility] [address], [id number], tel:[phone] [facility] [employer] No Information 7 Ashia Guerra. [address] [facility], [place] [address], [place], [place], [id number] , [place]. tel: [phone] Independent Medical Examination MARÍA [facility], [address], [place], [place], [id number], [place] tel:[phone] [facility] left shoulder (chief complaint) Pain in left shoulder Ashia Guerra. [address] [facility], [address], [place], [place], [id number] , [place]. tel: [phone] Family History Family Member Type Diagnosis Age At Onset Problem (finding) No family history of Di abetes mellitus Father Problem (finding) hypertension Father Problem (finding) stroke Immunizations Vaccine Date Status Comments Flu (split) (3 yrs or older) refused Source: Other Provider Payers Payer name Insurance type Covered republican ID Authortaylora nik(s) Susana Howe [id number] Social History Type Description Quantity Date Captured [...]
--- OUTSIDE RECORDS SUMMARY | 2024-12-29 08:52 | XMS_ITS | Clinical Summary ---
Author Organization [facility] Remberto Bledsoe Address [address] [place] [address] Care Team Providers Care House Calls Nurse Practitioner Name Role Phone Leonardo Gomez MD Primary Care Provider [phone] Allergies No known active allergies Medications lidocaine-prilo trae (EMLA) 2.5-2.5 % CreamIndication s:Malignant neoplasm of hepatic flexure (CMS/HCC) Apply to affected area see administration instructions. Apply to port site 30 minutes prior to access. 30 Gram 1 019 Active dexAMETHasone (DECADRON) 4 mg tabletIndicatio ns:Malignant neoplasm of hepatic flexure (CMS/HCC) Take 1 Tablet (4 mg) by mouth 2 times daily. Take the day prior to chemotherapy, the day of, and the day after chemotherapy. 6 Tablet 5 019 Active omeprazole (PriLOSEC) 40 mg Capsule, Delayed Release(E.C.)In dications:Malig nant neoplasm of colon, unspecified part of colon (CMS/HCC) Take 1 Capsule (40 mg) by mouth daily. 30 Capsule 2 020 Active ondansetron (Zofran) 8 mg TabletIndicatio ns:Malignant neoplasm of hepatic flexure (CMS/HCC) Take 1 Tablet (8 mg) by mouth every 8 hours as needed for Nausea/Emesis. 90 Tablet 3 020 Active albuterol (PROVENTIL,VENT SONY) 2.5 mg /3 mL (0.083 %) Solution for Nebulization 021 Active naproxen (NAPROSYN) 500 mg tablet 021 Active HYDROcodone-rodolfo taminophen (NORCO) 5-325 mg tabletIndicatio ns:Malignant neoplasm of hepatic flexure (CMS/HCC) TAKE 1 TABLET BY MOUTH EVERY 6 HOURS NEEDED FOR PAIN, MODERATE. MAX DAILY AMOUNT: 4 TABLETS 20 Tablet 025 Active losartan-hydroC HLOROthiazide (HYZAAR) 50-12.5 mg tablet 025 Active HYDROcodone-rodolfo taminophen (NORCO) 5-325 mg tabletIndicatio ns:Malignant neoplasm of hepatic flexure (CMS/HCC) Take 1 Tablet by mouth every 6 hours as needed for Pain, Moderate. Max Daily Amount: 4 Tablets 20 Tablet 025 2024 Discontinued Active Problems Problem Noted Date Diagnosed Date Colon cancer 05/31/2019 Encounters Date Type Department Care Team Description 12/20/2024 10:00 AM CDT Office Visit [facility] Oncology and Hematology [facility] [address] [place] [address] Alireza Bach MD Malignant neoplasm of hepatic flexure (CMS/HCC) (Primary Dx) 12/17/[address] [facility] Oncology and Hematology [address] [place] [address] Alireza Bach MD 12/16/[address] [facility] Oncology and Hematology [place] [place] [address] Alireza Bach MD 12/07/2024 External Device Data STL ABSTRACTION Provider, Abstract 12/03/[address] [facility] Oncology and Hematology [facility] [address] [place] [address] Alireza Bach MD Malignant neoplasm of hepatic flexure (CMS/HCC) 11/11/2024 External Device Data STL ABSTRACTION Provider, Abstract 11/09/2024 External Device Data STL ABSTRACTION Provider, Abstract from Last 3 Months Family History Medical History Relation Name Comments Heart Disease Father Cancer Mother Relation Name Status Comments Father Mother Alive Social History Tobacco Use Types Packs/Day Years Used Date Smoking Tobacco: Every Day Cigarettes 2 35.1 Started: 05/14/1988; Last attempted to quit: 05/14/2018 [...] Sign Reading Time Taken Comments Blood Pressure 125/81 12/20/2024 9:47 AM CDT Pulse 93 12/20/2024 9:47 AM CDT Temperature 36.7 C (98 F) 12/20/2024 9:47 AM CDT Respiratory Rate 16 12/20/2024 9:47 AM CDT Oxygen Saturation 94% 12/20/2024 9:47 AM CDT Inhaled Oxygen Concentration - - Weight 81.7 kg (180 lb 3.2 oz) 12/20/2024 9:47 A M CDT Height 172.7 cm (5' 8) 12/07/2021 8:36 AM CDT Body Mass Index 27.4 12/07/2021 8:36 AM CDT Plan of Treatment Upcoming Encounters Date Type Department Care Team (Late st Contact Info) Description 01/05/2025 4:30 PM CDT Telephone Check Up [facility] Oncology and Hematology - [place] [address] [facility] [address] [place] [address] Alireza Bach MD [address] [facility] [address] [place] [address] Health Maintenance Due Date Last Done Comments Pre-Diabetes and Diabetes Screening 1962 DTAP/TDAP/TD VACCINES (1 - Tdap) 1981 Lung Cancer Screening 2012 ZOSTER VACCINE (1 of 2) 2012 INFLUENZA VACCINE (#1) 2025 RSV VACCINE (60+ or ) (1 - 1-dose 75+ series) 2037 Procedures Procedure Name Priority Date/Time Associated Diagnosis Comments COMPREHENSIVE METABOLIC PANEL Routine 12/15/2024 4:40 PM CDT COMPREHENSIVE METABOLIC PANEL Routine 12/15/2024 4:05 PM CDT CEA Routine 12/15/2024 9:25 AM CDT from Last 3 Months Results * COMPREHENSIVE METABOLIC PANEL (12/15/2024 4:40 PM CDT) Only the most recent of2 resultswithin the time period is included. Blood Alireza Bach MD CHEMISTRY ORDERABLES Final Resu lt * CEA (12/15/2024 9:25 AM CDT) Blood us Alireza Bach MD CHEMISTRY ORDERABLES Final Resu lt from Last 3 Months Insurance [facility] CHOICE [id number] Care Teams House Calls Nurse Practitioner Relationship Specialty Start Date End Date Leonardo Gomez MD [address] [place] [address] PCP - General Family Practice 03/29/19
--- OUTSIDE RECORDS SUMMARY | 2024-12-29 08:52 | XMS_ITS | Clinical Summary ---
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
--- OUTSIDE RECORDS SUMMARY | 2024-12-29 08:52 | XMS_ITS | Referral Summary ---
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
== END 2024-12-29 08:48 | disposition home or self-care (01) ==
LOC: CHSIMG 08:48
PROVIDERS: PCP Family Medicine; Visit Provider Internal Medicine Hematology & Oncology
DX: C18.3 Malignant neoplasm of hepatic flexure (principal); Z90.49 Acquired absence of other specified parts of digestive tract; K76.0 Fatty (change of) liver, not elsewhere classified
CPT/HCPCS: 74177; Q9967

== ENCOUNTER 2025-01-24 08:44 | Outpatient (CLI) | payer OTHER, SELFPAY ==
--- OUTSIDE RECORDS SUMMARY | 2025-01-24 08:48 | XMS_ITS | Clinical Summary ---
Author Organization 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
--- OUTSIDE RECORDS SUMMARY | 2025-01-24 08:48 | XMS_ITS | Referral Summary ---
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
--- OUTSIDE RECORDS SUMMARY | 2025-01-24 08:49 | XMS_ITS | Clinical Summary ---
Author Organization [facility] Address [address] [place] [address] Care Team Providers Care Shipyard Helper Name Role Phone Leonardo Gomez MD Primary Care Provider [phone] Allergies No known active allergies Medications lidocaine-priloc [...] tabletIndication s:Malignant neoplasm of hepatic flexure (CMS/HCC) TAKE 1 TABLET BY MOUTH EVERY 6 HOURS NEEDED FOR PAIN, MODERATE. MAX DAILY AMOUNT: 4 TABLETS 20 Tablet 12/04/19 25 Active losartan-hydroCH LOROthiazide (HYZAAR) 50-12.5 mg tablet 12/04/19 25 Active Active Problems Problem Noted Date Diagnosed Date Colon cancer 05/31/2019 Encounters Date Type Department Care Team Description 01/05/2025 4:30 PM CDT Telephone Check Up [facility] Oncology and Hematology [facility] [address] Alireza Bach MD Malignant neoplasm of hepatic flexure (CMS/HCC) (Primary Dx) 01/05/2025 External Device Data STL ABSTRACTION Provider, Abstract 01/04/2025 External Device Data STL ABSTRACTION Provider, Abstract 01/03/2025 Orders Only [facility] Oncology and Hematology [facility] [address] [place] [address] Alireza Bach MD 12/20/2024 10:00 AM CDT Office Visit [facility] Oncology and Hematology [facility] [address] [place] [address] Alireza Bach MD Malignant neoplasm of hepatic flexure (CMS/HCC) (Primary Dx) 12/17/2024 Orders Only [facility] Oncology and Hematology [address] [place] [address] Alireza Bach MD 12/16/2024 Orders Only [facility] Oncology and Hematology - [place] [address] [place] [address] Alireza Bach MD 12/07/2024 External Device Data STL ABSTRACTION Provider, Abstract 12/03/2024 Refill [facility] Oncology and Hematology [facility] [address] [place] [address] Alireza Bach MD Malignant neoplasm of hepatic flexure (CMS/HCC) 11/11/2024 External Device Data STL ABSTRACTION Provider, Abstract 11/09/2024 External Device Data STL ABSTRACTION Provider, Abstract from Last 3 Months Family History Medical History Relation Name Comments Heart Disease Father Cancer Mother Relation Name Status Comments Father Mother Alive Social History Tobacco Use Types Packs/Day Years Used Date Smoking Tobacco: Every Day Cigarettes 2 35.2 Started: 05/14/1988; Last attempted to quit: 05/14/2018 [...] Care Team (Late st Contact Info) Description 07/11/2025 2: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 COMMERCIAL OR INSTITUTIONAL CLEANER Office Visit [facility] Oncology and Hematology - [place] [address] [place] [address] [facility] [address] [place] [address] Alireza Bach MD [address] [facility] [address] [place] [address] Health Maintenance Due Date Last Done Comments Pre-Diabetes and Diabetes Screening 1962 DTAP/TDAP/TD VACCINES (1 - Tdap) 1981 Lung Cancer Screening 2012 ZOSTER VACCINE (1 of 2) 2012 INFLUENZA VACCINE (#1) 2025 RSV VACCINE (60+ or ) (1 - 1-dose 75+ series) 2037 Procedures Procedure Name Priority Date/Time Associated Diagnosis Comments CT ABDOMEN PELVIS W CONTRAST Routine 12/29/2024 10:58 AM CDT COMPREHENSIVE METABOLIC PANEL Routine 12/15/2024 4:40 PM CDT COMPREHENSIVE METABOLIC PANEL Routine 12/15/2024 4:05 PM CDT CEA Routine 12/15/2024 9:25 AM CDT from Last 3 Months Results * CT ABDOMEN PELVIS W CONTRAST (12/29/2024 10:58 AM CDT) Anatomical Region Laterality Modality Abdomen Computed Tomogra phy us Alireza Bach MD CT ORDERABLES Final Result * COMPREHENSIVE METABOLIC PANEL (12/15/2024 4:40 PM CDT) Only the most recent of2 resultswithin the time period is included. Blood us Alireza Bach MD CHEMISTRY ORDERABLES Final Resu lt * CEA (12/15/2024 9:25 AM CDT) Blood us Alireza Bach MD CHEMISTRY ORDERABLES Final Resu lt from Last 3 Months Insurance [facility] CHOICE [id number] Care Teams Shipyard Helper Relationship Specialty Start Date End Date Leonardo Gomez MD [address] [place] [address] PCP - General Family Practice 03/29/19
--- OUTSIDE RECORDS SUMMARY | 2025-01-24 08:49 | XMS_ITS | Encounter Summary ---
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
--- OUTSIDE RECORDS SUMMARY | 2025-01-24 08:49 | XMS_ITS | Clinical Summary ---
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
--- OUTSIDE RECORDS SUMMARY | 2025-01-24 08:49 | XMS_ITS | Continuity of Care Document ---
Author Organization [facility] Address [address] [place] [address] Phone Care Team Providers Care Elevator Troubleshooter Name Role Phone Charlie Ang MD, MD [...] Date Provider Providers Copied on Encounter [facility], [address], [id number], tel:[phone] [facility] No Information 7 Ashia Guerra. [address] [facility] [place] [address], [place], [place], [id number] , [place]. tel: [phone] Independent Medical Examination [facility]A [facility], [address], [place], [place], [id number], [place] tel:[phone] [facility] left shoulder (chief complaint) Pain in left shoulder Ashia Guerra. [address] [facility] [facility], [place], [place], [id number] , [place]. tel: [phone] Family History Family Member Type Diagnosis Age At Onset Problem (finding) No family history of Di abetes mellitus Father Problem (finding) hypertension Father Problem (finding) stroke Immunizations Vaccine Date Status Comments Flu (split) (3 yrs or older) refused Source: Other Provider Payers Payer name Insurance type Covered alliance party ID Authortaylora nik(s) Susana Howe [id number] Social History Type Description Quantity Date Captured [...]
[2025-01-24 09:00] VITALS: PULSE 88; O2SAT 96
[2025-01-24 09:10] VITALS: PULSE 100; O2SAT 93
--- NOTE | 2025-01-24 09:14 | HOMEO2EVAL ---
Evaluation was performed at [facility] Home Oxygen Evaluation RC: Home Oxygen (O2) Evaluation Start: 01/24/25 09:09 Freq: Status: Active Protocol: RPE Activity Type Activity Date Activity User E-sign Co-sign Detail Recorded Client Recorded Date Recorded By Document 01/24/25 09:00 [email or web address] 01/24/25 09:13 SJB Document 01/24/25 09:10 SJB [email or web address] 01/24/25 09:13 SJB 01/24/25 01/24/25 09:00 09:10 Home O2 Evaluation [Oxygen] -Test Phase Resting Exercise -Oxygen Delivery Room Air Room Air [Pulse Oximetry] -Pulse Oximetry (90-100 %) 96 93 [Pulse Rate] -Pulse Rate (60-100 beats/min) 88 100 [Evaluation] -Activity Tolerance Good -Rating of Perceived Dyspnea (PD) +3 Moderate Difficulty, But Can Continue -Rate of Perceived Exertion (PE) 12 Query Text:Click the Protocol Button to View the RPE Scale [Exercise] -Ambulation Distance (feet) 1,100 -Ambulation Distance (meters) 335.26 [Comments] -Home Oxygen Evaluation Comments Will begin walk Charly walked on room air. approx. 1100 ft . on room air, talking throughout test . Sp02s remained at 93% and above and HR up to 100. Pt very tachypneic, PLB encouraged. [Charges] -Evaluation Charges O2 Evaluation Charge
== END 2025-01-24 08:45 | disposition home or self-care (01) ==
LOC: CHSCARD 08:45
PROVIDERS: PCP Family Medicine; Visit Provider Family Medicine
DX: J44.1 Chronic obstructive pulmonary disease with (acute) exacerbation (principal)
CPT/HCPCS: 94618

== ENCOUNTER 2025-04-18 06:24 | Observation (INO) | payer OTHER, SELFPAY ==
--- OUTSIDE RECORDS SUMMARY | 2017-03-25 10:31 | XMS_ITS | Continuity of Care Document ---
Author Organization [facility] Address [address] [place] [address] Phone Care Team Providers Care Criminal Investigative Agent Name Role Phone Charlie Ang MD, MD Unavailable Unavaila ble Allergies, Adverse Reactions, Alerts Substance Reaction Status Criticality No Known Drug Allergies Active No I nformation Medications Medication Instructions Dosage Effective Dates (start - stop) Status Comments hydrocodone 5 mg-acetaminophen 325 mg tablet - No Longer Active naproxen 500 mg tablet - No Longer Active bupropion HCl SR 150 mg tablet,12 hr sustained-release - No Longer Active Chantix Starting Month Box 0.5 mg (11)-1 mg (42) tablets in dose pack - No Longer Active azithromycin 250 mg tablet - No Longer Active Procedures Procedure Date X-ray exam shoulder minimum 2 views Independent Medical Examination MARÍA Prolonged serv, w/o contact, 1st hr Advance Directives Directive Yes / No Effective Date File Name No Information Encounters Encounter Description Practice Location Reason(s) For Visit Diagnoses Date Provider Providers Copied on Encounter [facility], [address], [id number], tel:[phone] [facility] No Information 7 Ashia Guerra. [address] [facility] [place] [address], [place], [place], [id number] , [place]. tel: [phone] Independent Medical Examination MARÍA [facility], [address], [place], [place], [id number], [place] tel:[phone] [facility] left shoulder (chief complaint) Pain in left shoulder Ashia Guerra. [address] [facility] [facility], [address], [place], [place], [id number] , [place]. tel: [phone] Family History Family Member Type Diagnosis Age At Onset Problem (finding) No family history of Di abetes mellitus Father Problem (finding) hypertension Father Problem (finding) stroke Immunizations Vaccine Date Status Comments Flu (split) (3 yrs or older) refused Source: Other Provider Payers Payer name Insurance type Covered alliance party ID Authortaylora nik(s) Susana Howe [id number] Social History Type Description Quantity Date Captured Comments Sex Male Smoking Status No Information Chief Complaint And Reason For Visit No Information Reason For Referral Reason For Referral No Information Plan Of Treatment Date Type Action Status Referral Ordered: X-ray exam shoulder minimum 2 views LT ordered History Of Present Illness Encounter Date Complaint History Of Prese nt Illness left shoulder Wesley presents to the office for left shoulder complaints. Functional Status Date Functional Assessmen t No Information Instructions Date Instruction Additional Infor mation No Information Assessments Type Assessment Date No Information Patient Care Teams Name Effective Dates (start - stop) Status Members No Information
[2025-04-18] VITALS (19 sets, daily range): BP systolic 117–153; BP diastolic 75–103; PULSE 77–104; RESP 8–24; TEMP 36.1–36.8; O2SAT 92–99; BMI 29.3
--- NOTE | ~2025-04-18 | XR_ITS ---
Examination: XR chest 1V portable Clinical History: SHORTNESS OF BREATH Comparison: 12/15/2024 Technique: Portable AP Findings: Heart size normal. Lungs clear. No acute bony abnormality. Left clavicle ORIF, rib fractures as before. IMPRESSION: 1. No acute cardiopulmonary findings given portable technique. Reviewed, dictated and finalized at location R.
--- OUTSIDE RECORDS SUMMARY | 2025-04-18 06:26 | XMS_ITS | Clinical Summary ---
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
--- OUTSIDE RECORDS SUMMARY | 2025-04-18 06:26 | XMS_ITS | Clinical Summary ---
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 Gender Identity Not on file Sexual Orientation [...] Tdap) 10/09/2023 10/08/2013 COVID-19 Vaccine ( - 2024-2 6 season) 2025 02/04/2021, 01/14/2021 Influenza Adult (#1) 2025 RSV Immunization or 60+ Years (1 - 1-dose 75+ series) 2037 Hepatitis A Vaccines Aged Out No long er eligible based on patient's age to complete this topic Meningococcal B Vaccine Aged Out No l onger eligible based on patient's age to complete this topic Meningococcal Vaccine Aged Out No say heena eligible based on patient's age to complete this topic RSV Immunizations Under 20 Months Aged Out No longer eligible b ased on patient's age to complete this topic Insurance [employer] Care Teams Tmh Teacher Relationship Specialty Start Date End Date Leonardo Gomez MD [address] [place] [address] PCP - General FAMILY PRACTICE 02/26/24
--- OUTSIDE RECORDS SUMMARY | 2025-04-18 06:26 | XMS_ITS | Clinical Summary ---
Author Organization [facility] Remberto Bledsoe Address [address] [place] [address] Care Team Providers Care Telephone Operator Name Role Phone Leonardo Gomez MD Primary Care Provider [phone] Allergies No known active allergies Medications lidocaine-prilo [...] naproxen (NAPROSYN) 500 mg tablet 021 Active losartan-hydroC HLOROthiazide (HYZAAR) 50-12.5 mg tablet 025 Active HYDROcodone-rodolfo taminophen (NORCO) 5-325 mg tabletIndicatio ns:Malignant neoplasm of hepatic flexure (CMS/HCC) TAKE 1 TABLET BY MOUTH EVERY 6 HOURS NEEDED FOR PAIN, MODERATE. MAX DAILY AMOUNT: 4 TABLETS 20 Tablet 025 Active HYDROcodone-rodolfo taminophen (NORCO) 5-325 mg tabletIndicatio ns:Malignant neoplasm of hepatic flexure (CMS/HCC) TAKE 1 TABLET BY MOUTH EVERY 6 HOURS NEEDED FOR PAIN, MODERATE. MAX DAILY AMOUNT: 4 TABLETS 20 Tablet 025 2024 Discontinued Active Problems Problem Noted Date Diagnosed Date Colon cancer 05/31/2019 Encounters Date Type Department Care Team Description 03/29/2025 External Device Data STL ABSTRACTION Provider, Abstract 03/18/2025 Refill [facility] Oncology and Hematology - [place] [address] [place] [address] Alireza Bach MD Malignant neoplasm of hepatic flexure (CMS/HCC) 03/08/2025 External Device Data STL ABSTRACTION Provider, Abstract 03/01/2025 External Device Data STL ABSTRACTION Provider, Abstract 02/22/2025 External Device Data STL ABSTRACTION Provider, Abstract 02/08/2025 External Device Data STL ABSTRACTION Provider, Abstract 02/04/2025 Refill [facility] Oncology and Hematology - [place] [address] [place] [address] Alireza Bach MD Malignant neoplasm of hepatic flexure (CMS/HCC) 01/26/2025 External Device Data STL ABSTRACTION Provider, Abstract from Last 3 Months Family History Medical History Relation Name Comments Heart Disease Father Cancer Mother Relation Name Status Comments Father Mother Alive Social History Tobacco Use Types Packs/Day Years Used Date Smoking Tobacco: Every Day Cigarettes 2 35.4 Started: 05/14/1988; Last attempted to quit: 05/14/2018 [...] st Contact Info) Description 07/11/2025 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 Office Visit [facility] Oncology and Hematology - [place] [address] [facility] [address] [place] [address] Alireza Bach MD [address] [facility] [address] [place] [address] Health Maintenance Due Date Last Done Comments Pre-Diabetes and Diabetes Screening 1962 DTAP/TDAP/TD VACCINES (1 - Tdap) 1981 Lung Cancer Screening 2012 ZOSTER VACCINE (1 of 2) 2012 INFLUENZA VACCINE (#1) 2025 RSV VACCINE (60+ or ) (1 - 1-dose 75+ series) 2037 Insurance [facility] CHOICE [id number] Care Teams Telephone Operator Relationship Specialty Start Date End Date Leonardo Gomez MD [address] [place] [id number] PCP - General Family Practice 03/29/19
--- OUTSIDE RECORDS SUMMARY | 2025-04-18 06:26 | XMS_ITS | Encounter Summary ---
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
--- NOTE | 2025-04-18 06:27 | ECG_ITS ---
Test Date: 2025-04-18 06:35:52 Measurements Intervals [place] Rate: 80 P: 44 OK: 132 QRS: 40 QRSD: 92 T: 38 QT: 350 QTc: 405 Interpretive Statements SINUS RHYTHM BASELINE ARTIFACT- I, III, AVR, AVL, AVF, V1-V6 NORMAL ECG Compared to ECG 11/02/2024 08:43:54 Sinus arrhythmia no longer present Electronically Signed On 04-18-2025 10:49:53 CDT by Nomi Carvalho D.O.
--- NOTE | 2025-04-18 06:33 | ED_ITS ---
HPI - SOB/Dyspnea General Chief Complaint: Shortness of Breath/Dyspnea <Megan Soni MD - Last Filed: 04/19/25 13:42> Stated Complaint: Trouble breathing <Megan Soni MD - Last Filed: 04/19/25 13:42> Time Seen by Provider: 04/18/25 06:26 <Megan Soni MD - Last Filed: 04/19/25 13:42> Source: patient <Megan Soni MD - Last Filed: 04/19/25 13:42> Mode of arrival: ambulatory <Megan Soni MD - Last Filed: 04/19/25 13:42> Limitations: no limitations <Megan Soni MD - Last Filed: 04/19/25 13:42> History of Present Illness HPI Narrative: 64 years old white male drove himself to the emergency room complaining of history of chronic shortness of breath secondary to COPD, today prior to arrival to the emergency room a shortness of breath did not get better after a breathing treatment which is unusual. He denies any fever, chills, nausea, vomiting, chest pain, back pain, or leg pain Or upper respiratory symptoms Patient quit smoking 6 weeks ago, drinks alcohol occasionally, denies drug abuse <Megan Soni MD - Last Filed: 04/19/25 13:42> Related Data Home Medications: Home Medications ?Medication ?Instructions ?Recorded ?Confirmed ?Last Taken ?Type aspirin 325 mg tablet 325 mg PO DAILY 04/27/2009/06/24 History albuterol sulfate 90 mcg/actuation 2 puff inhalation Q ID PRN 05/05/23 04/18/25 Unknown History aerosol inhaler Shortness Of Breath albuterol sulfate 2.5 mg/3 mL 2.5 mg inhalation Q6H IN N 09/06/24 04/18/25 Unknown History (0.083 %) solution for nebulization shortness of breat h or wheezing losartan 50 mg-hydrochlorothiazide 1 tablet PO DAILY 0 11/30/24 04/18/25 Unknown History 12.5 mg tablet <Megan Soni MD - Last Filed: 04/19/25 13:42> Allergies/Adverse Reactions: Allergies Allergy/AdvReac Type Severity Reaction Status Date / Time No Known Allergies Allergy Verified 04/18/25 10:21 <Megan Soni MD - Last Filed: 04/19/25 13:42> Review of Systems 2 Review of Systems: All systems reviewed & are unremarkable except as noted in HPI and below <Megan Soni MD - Last Filed: 04/19/25 13:42> [facility] Past Medical History Medical History: Medical History BMI 29.0-29.9,adult History of trigger finger Incisional hernia of anterior abdominal wall without obstruction or gangrene Port-A-Cath in place (~2018) Malignant neoplasm of hepatic flexure Status post resection and reanastomosis. Chemotherapy now in progress now COPD (chronic obstructive pulmonary disease) <Megan Soni MD - Last Filed: 04/19/25 13:42> Surgical History Surgical History: Surgical History History of rotator cuff surgery H/O right hemicolectomy H/O hernia repair 03/07/2020: Retrorectus recurrent incarcerated hernia repair with Prolene soft mesh, THUY transverse abdominus myofascial flap advancement (3cm on left, 3cm on right) removal mesh foreign body. <Megan Soni MD - Last Filed: 04/19/25 13:42> Family History Family History: Family History Mother Family history of malignant neoplasm of breast in first degree relative <Megan Soni MD - Last Filed: 04/19/25 13:42> Social History Social History: Social History Smoking packs per day: 2 Smoking cigarettes per day: 40.0 Years smoked: 40 Smoking pack-years: 80.00 Smoking status: Former smoker Tobacco type: cigarettes Second hand tobacco smoke exposure: No Smoking end date: 01/21/25 Additional smoking assessment comments: pt uses chantix has smoked off and on for years, not smoking now Alcohol intake: never Drinks per week: 4 Substance use: never Substance use type: opiates Last use: 3/15/25 Lack of Transportation: No Lack of Food: Never True Current Housing: I Have Housing Concerned About Future Housing: No Difficulty Paying Gas/Electric Bills: No Difficulty Paying for Meds: No Currently Unemployed: No Education: High School Diploma/GED Difficulty w/ Childcare or Family Care: No Living arrangements: with family Additional living arrangements comments: with sp Gender identity (if verbalized by the patient): Male Spiritual care concerns: No <Megan Soni MD - Last Filed: 04/19/25 13:42> Exam 2 Narrative: General appearance: Well-developed, well-nourished Skin: Normal color Head: Normocephalic, nontraumatic Eyes: Clear conjunctiva ENT: Oropharynx normal, ears normal, nose normal Neck: Supple, nontender Chest and respiratory: Airway patent, no respiratory distress, no accessory muscle use, diminution of air entry bilaterally, generalize fine wheezing bilaterally mainly during expiration Heart: Regular rate/rhythm Abdomen: Soft, nontender, no organomegaly, quiet bowel sounds Musculoskeletal: Normal range of motion, nontender back Neurologic: Alert and oriented ?3, PRODUCTION OFFICER is normal as tested, no gross motor deficit <Megan Soni MD - Last Filed: 04/19/25 13:42> Course Consultations Consultation #1: Patient care turned over to Dr. Paiz at shift change, awaiting labs, imaging, disposition. <Megan Soni MD - Last Filed: 04/19/25 13:42> Date: 04/18/25 <Megan Soni MD - Last Filed: 04/19/25 13:42> Time: 07:00 <Megan Soni MD - Last Filed: 04/19/25 13:42> Vital Signs Vital signs: Vital Signs Temperature 36.1 C L 04/18/25 06:24 Pulse Rate 77 04/18/25 06:24 Respiratory Rate 22 H 04/18/25 06:24 Blood Pressure 153/103 H 04/18/25 06:24 Pulse Oximetry 96 04/18/25 06:24 Oxygen Delivery Room Air 04/18/25 06:24 Temperature 36.9 C 04/19/25 07:40 Pulse Rate 81 04/19/25 11:22 Respiratory Rate 22 H 04/19/25 11:22 Blood Pressure 151/94 H 04/19/25 10:00 Pulse Oximetry 95 04/19/25 11:22 Oxygen Delivery Room Air 04/19/25 08:00 Oxygen Flow Rate 0 04/19/25 11:22 <Megan Soni MD - Last Filed: 04/19/25 13:42> Vital Signs Temperature 36.1 C L 04/18/25 06:24 Pulse Rate 77 04/18/25 06:24 Respiratory Rate 22 H 04/18/25 06:24 Blood Pressure 153/103 H 04/18/25 06:24 Pulse Oximetry 96 04/18/25 06:24 Oxygen Delivery Room Air 04/18/25 06:24 Temperature 36.9 C 04/19/25 07:40 Pulse Rate 81 04/19/25 11:22 Respiratory Rate 22 H 04/19/25 11:22 Blood Pressure 151/94 H 04/19/25 10:00 Pulse Oximetry 95 04/19/25 11:22 Oxygen Delivery Room Air 04/19/25 08:00 Oxygen Flow Rate 0 04/19/25 11:22 <Marino Craft MD - Last Filed: 04/18/25 09:44> MDM - SOB/Dyspnea MDM Narrative Medical decision making narrative: Patient was transferred to my care at shift change. He is still short of breath and borderline hypoxemia. We will admit the patient for 23 hour observation and give him breathing treatments and IV steroids. I discussed the case with the hospitalist. Patient was accepted. I reviewed all his labs and studies. No other major findings. Telemetry needed. <Marino Craft MD - Last Filed: 04/18/25 09:44> Differential Diagnosis Differential diagnosis: Likely acute exacerbation of chronic obstructive airways disease, congestive heart failure, community acquired pneumonia and asthma with exacerbation <Megan Soni MD - Last Filed: 04/19/25 13:42> Lab Data Attestation: I reviewed the patient's lab results. <Marino Craft MD - Last Filed: 04/18/25 09:44> Result diagrams: 04/19/25 10:02 04/19/25 10:02 <Megan Soni MD - Last Filed: 04/19/25 13:42> Labs: Lab Results 04/18/25 04/18/25 Range/Units 06:48 07:05 WBC 6.3 (4.8-10.8) K/mm3 RBC 4.20 L (4.70-6.10) M/mm3 Hgb 14.7 (14.0-18.0) g/dL Hct 42.9 (40.0-54.0) % MCV 102.1 H (78.0-102.0) fL MCH 35.0 H (27.0-31.0) pg MCHC 34.3 (32-36) g/dL RDW 12.6 (11.6-14.4) % Plt Count 160 (150-420) K/mm3 MPV 9.7 (8.7-11.0) fl Immature Gran % (Auto) 0.5 H (0.0-0.0) % Neut % (Auto) 59.9 (50.0-70.0) % Lymph % (Auto) 27.5 (18.0-42.0) % [place] % (Auto) 8.0 (2.0-11.0) % Eos % (Auto) 3.0 (1.0-6.0) % Baso % (Auto) 1.1 H (0.0-1.0) % Lymph # (Auto) 1.72 (1.10-4.50) K/mm3 [place] # (Auto) 0.50 (0.10-0.90) K/mm3 Eos # (Auto) 0.19 (0.02-0.50) K/mm3 Baso # (Auto) 0.07 (0.00-0.10) K/mm3 Abs Immat Gran (auto) 0.03 H (0.00-0.00) K/mm3 Absolute Neuts (auto) 3.75 (1.70-7.20) K/mm3 Absolute Nucleated RBC 0.00 (0.00-0.00) K/mm3 Nucleated RBC % 0.0 (0-0.0) % PT 10.1 (9.50-12.1) Seconds INR 0.9 APTT 24.4 (23.9-30.70) Sec D-Dimer 0.35 (0.19-0.50) mg/L Sodium 141 (137-145) mmol/L Potassium 4.0 (3.4-5.0) mmol/L Chloride 108 H (98-107) mmol/L Carbon Dioxide 24 (22-30) mmol/L Anion Gap 9 (4-12) mmol/L BUN 9 (9-20) mg/dL Creatinine 0.73 (0.7-1.3) mg/dL Estim Creat Clear Calc 99 ml/min Estimated GFR > 60 (59 - ) Glucose 118 H (65-110) mg/dL Calculated Osmolality 291 (285-295) mOsm/kg Calcium 8.9 (8.4-10.2) mg/dL Total Bilirubin 0.4 (0.2-1.3) mg/dL AST 82 H (17-59) U/L ALT 75 H (6-50) U/L Alkaline Phosphatase 71 (38-126) U/L Troponin I < 0.012 (0.000-0.034) ng/mL NT-Pro-B Natriuret Pep < 20 (19.9-100) pg/mL Total Protein 7.1 (6.3-8.2) g/dL Albumin 4.2 (3.5-5.1) g/dL Influenza A (RT-PCR) Negative (Negative) Influenza B (RT-PCR) Negative (Negative) RSV (RT-PCR) Negative (Negative) SARS-CoV-2 RNA (RT-PCR) Negative (Negative) <Megan Soni MD - Last Filed: 04/19/25 13:42> Lab Results 04/18/25 04/18/25 Range/Units 06:48 07:05 WBC 6.3 (4.8-10.8) K/mm3 RBC 4.20 L (4.70-6.10) M/mm3 Hgb 14.7 (14.0-18.0) g/dL Hct 42.9 (40.0-54.0) % MCV 102.1 H (78.0-102.0) fL MCH 35.0 H (27.0-31.0) pg MCHC 34.3 (32-36) g/dL RDW 12.6 (11.6-14.4) % Plt Count 160 (150-420) K/mm3 MPV 9.7 (8.7-11.0) fl Immature Gran % (Auto) 0.5 H (0.0-0.0) % Neut % (Auto) 59.9 (50.0-70.0) % Lymph % (Auto) 27.5 (18.0-42.0) % [place] % (Auto) 8.0 (2.0-11.0) % Eos % (Auto) 3.0 (1.0-6.0) % Baso % (Auto) 1.1 H (0.0-1.0) % Lymph # (Auto) 1.72 (1.10-4.50) K/mm3 [place] # (Auto) 0.50 (0.10-0.90) K/mm3 Eos # (Auto) 0.19 (0.02-0.50) K/mm3 Baso # (Auto) 0.07 (0.00-0.10) K/mm3 Abs Immat Gran (auto) 0.03 H (0.00-0.00) K/mm3 Absolute Neuts (auto) 3.75 (1.70-7.20) K/mm3 Absolute Nucleated RBC 0.00 (0.00-0.00) K/mm3 Nucleated RBC % 0.0 (0-0.0) % PT 10.1 (9.50-12.1) Seconds INR 0.9 APTT 24.4 (23.9-30.70) Sec D-Dimer 0.35 (0.19-0.50) mg/L Sodium 141 (137-145) mmol/L Potassium 4.0 (3.4-5.0) mmol/L Chloride 108 H (98-107) mmol/L Carbon Dioxide 24 (22-30) mmol/L Anion Gap 9 (4-12) mmol/L BUN 9 (9-20) mg/dL Creatinine 0.73 (0.7-1.3) mg/dL Estim Creat Clear Calc 99 ml/min Estimated GFR > 60 (59 - ) Glucose 118 H (65-110) mg/dL Calculated Osmolality 291 (285-295) mOsm/kg Calcium 8.9 (8.4-10.2) mg/dL Total Bilirubin 0.4 (0.2-1.3) mg/dL AST 82 H (17-59) U/L ALT 75 H (6-50) U/L Alkaline Phosphatase 71 (38-126) U/L Troponin I < 0.012 (0.000-0.034) ng/mL NT-Pro-B Natriuret Pep < 20 (19.9-100) pg/mL Total Protein 7.1 (6.3-8.2) g/dL Albumin 4.2 (3.5-5.1) g/dL Influenza A (RT-PCR) Negative (Negative) Influenza B (RT-PCR) Negative (Negative) RSV (RT-PCR) Negative (Negative) SARS-CoV-2 RNA (RT-PCR) Negative (Negative) <Marino Craft MD - Last Filed: 04/18/25 09:44> ABG Data ABG results: 04/18/25 07:05 Puncture Site Left radial ABG pH 7.49 H ABG pCO2 26.8 L ABG pO2 90.0 ABG HCO3 20.0 L ABG O2 Saturation 96.9 ABG Base Excess -1.6 L Oxyhemoglobin 91.3 L O2 Delivery Device Room air O2 Liters/Min 0.0 <Megan Soni MD - Last Filed: 04/19/25 13:42> 04/18/25 07:05 Puncture Site Left radial ABG pH 7.49 H ABG pCO2 26.8 L ABG pO2 90.0 ABG HCO3 20.0 L ABG O2 Saturation 96.9 ABG Base Excess -1.6 L Oxyhemoglobin 91.3 L O2 Delivery Device Room air O2 Liters/Min 0.0 <Marino Craft MD - Last Filed: 04/18/25 09:44> Imaging Data Attestation: I personally reviewed and interpreted this imaging study as follows: <Marino Craft MD - Last Filed: 04/18/25 09:44> Radiologist's impression: Chest x-rays negative for acute process <Marino Craft MD - Last Filed: 04/18/25 09:44> ECG Data EKG #1: Attestation: I personally reviewed and interpreted this ECG as follows: <Megan Soni MD - Last Filed: 04/19/25 13:42> ECG completion date: 04/18/25 <Megan Soni MD - Last Filed: 04/19/25 13:42> Prior ECG tracings: available for review <Megan Soni MD - Last Filed: 04/19/25 13:42> Interpretation: NORMAL SINUS RHYTHM AT 80 BEATS PER MINUTE, NORMAL EKG. COMPARED TO EKG ON NOVEMBER 02, 2024 NO SIGNIFICANT CHANGES <Megan Soni MD - Last Filed: 04/19/25 13:42> Critical Care Time Critical Care Time Critical Care Time: No <Megan Soni MD - Last Filed: 04/19/25 13:42> Discharge Plan Discharge Clinical Impression: Acute exacerbation of chronic obstructive pulmonary disease <Megan Soni MD - Last Filed: 04/19/25 13:42> Patient Disposition: [facility] <Megan Soni MD - Last Filed: 04/19/25 13:42> Condition: Stable <Megan Soni MD - Last Filed: 04/19/25 13:42> Time of Disposition: 09:44 <Megan Soni MD - Last Filed: 04/19/25 13:42> 09:44 <Marino Craft MD - Last Filed: 04/18/25 09:44>
[2025-04-18] MEDS: IPRATROPIUM BR 0.02% INH SOLN 0.5 MG/2.5 ML VIAL INHALATION (07:01)
[2025-04-18 07:06] LABS: HCO3 ABG 20.0 mmol/L (23-29); Oxygen Saturation ABG 96.9 % (95-97); PCO2 ABG 26.8 mmHg (35-45); PO2 ABG 90.0 mmHg (80-90)
[2025-04-18 07:10] LABS: Hematocrit 42.9 % (40.0-54.0); Hemoglobin 14.7 g/dL (14.0-18.0); Immature Granulocyte Percent A 0.5 % (0.0-0.0); Lymphocytes Absolute Auto 1.72 K/mm3 (1.10-4.50); Mean Corpuscular HGB Conc 34.3 g/dL (32-36); Mean Corpuscular Hemoglobin 35.0 pg (27.0-31.0); Mean Corpuscular Volume 102.1 fL (78.0-102.0); Nucleated Red Blood Cells Absolute Auto 0.00 K/mm3 (0.00-0.00); Nucleated Red Blood Cells Perc 0.0 % (0-0.0); Platelet Count Result 160 K/mm3 (150-420); Red Blood Count 4.20 M/mm3 (4.70-6.10); White Blood Count 6.3 K/mm3 (4.8-10.8)
[2025-04-18] MEDS: ALBUTEROL SULFATE NEB 2.5 MG/3 ML INH 10 MG INHALATION (07:12)
[2025-04-18 07:13] LABS: Liters per Minute 0.0 LPM; Modified Allen's Test Pass; Site Drawn LEFT RADIAL
--- NOTE | 2025-04-18 07:15 | PC.NURSE ---
Report received from DEREK Douglas
[2025-04-18 07:26] LABS: Alanine Aminotransferase 75 U/L (6-50); Albumin Level 4.2 g/dL (3.5-5.1); Alkaline Phosphatase 71 U/L (38-126); Anion Gap 9 mmol/L (4-12); Aspartate Amino Transferase 82 U/L (17-59); Bilirubin,Total 0.4 mg/dL (0.2-1.3); Blood Urea Nitrogen 9 mg/dL (9-20); Calcium 8.9 mg/dL (8.4-10.2); Carbon Dioxide 24 mmol/L (22-30); Chloride 108 mmol/L (98-107); Estimated CRCL calculation 99 ml/min; Estimated Glomerular Filt Rate > 60; Glucose 118 mg/dL (65-110); Osmolality Calculated 291 mOsm/kg (285-295); Potassium 4.0 mmol/L (3.4-5.0); Sodium 141 mmol/L (137-145); Total Protein 7.1 g/dL (6.3-8.2)
[2025-04-18 07:27] LABS: Influenza A QL RT-PCR Negative (Negative); Influenza B QL RT-PCR Negative (Negative); RSV RNA, RT-PCR Negative (Negative); SARS-CoV-2 RNA PCR Negative (Negative)
[2025-04-18 07:35] LABS: INR 0.9; Partial Thromboplastin Time 24.4 Sec (23.9-30.70); Prothrombin Time 10.1 Seconds (9.50-12.1)
[2025-04-18 07:38] LABS: NT Pro B Type Natriuretic Pept < 20 pg/mL (19.9-100); Troponin I < 0.012 ng/mL (0.000-0.034)
--- OUTSIDE RECORDS SUMMARY | 2025-04-18 07:38 | XMS_ITS | Clinical Summary ---
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
--- OUTSIDE RECORDS SUMMARY | 2025-04-18 07:38 | XMS_ITS | Clinical Summary ---
Author Organization [facility]so[facility] Address [address] [address] Care Team Providers Care Dock Attendant Name Role Phone Leonardo Gomez MD Primary Care Provider [phone] Allergies No known active allergies Medications lidocaine-prilo [...] Data STL ABSTRACTION Provider, Abstract 03/18/2025 Refill [facility] - [place] [address] [place] [address] Alireza Bach MD Malignant neoplasm of hepatic flexure (CMS/HCC) 03/08/2025 External Device Data STL ABSTRACTION Provider, Abstract 03/01/2025 External Device Data STL ABSTRACTION Provider, Abstract 02/22/2025 External Device Data STL ABSTRACTION Provider, Abstract 02/08/2025 External Device Data STL ABSTRACTION Provider, Abstract 02/04/2025 Refill [facility] - [place] [address] [place] [address] Alireza Bach MD Malignant neoplasm of hepatic [...] st Contact Info) Description 07/11/2025 2:30 PM REVENUE CYCLE MANAGER Office Visit [facility] - [place] [address] [address] [place] [address] Alireza Bach MD [address] [place] [address] Health Maintenance Due Date Last Done Comments Pre-Diabetes and Diabetes Screening 1962 DTAP/TDAP/TD VACCINES (1 - Tdap) 1981 Lung Cancer Screening 2012 ZOSTER VACCINE (1 of 2) 2012 INFLUENZA VACCINE (#1) 2025 RSV VACCINE (60+ or ) (1 - 1-dose 75+ series) 2037 Insurance [facility] [id number] [place] [address] Care Teams Dock Attendant Relationship Specialty Start Date End Date Leonardo Gomez MD [address] [place] [id number] PCP - General Family Practice 03/29/19
--- OUTSIDE RECORDS SUMMARY | 2025-04-18 07:38 | XMS_ITS | Encounter Summary ---
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
--- OUTSIDE RECORDS SUMMARY | 2025-04-18 07:38 | XMS_ITS | Clinical Summary ---
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
--- NOTE | 2025-04-18 10:05 | PC.NURSE ---
Pt taken up to 209 via WC with pt belongings and chart.
--- NOTE | 2025-04-18 10:13 | ADMGEN ---
This patient, Wesley Colon, was admitted to 2nd Floor Room 209-1. Patient/family oriented to hospital policies and general routines including ID bracelet, bed and alarms, visiting hours, pain management, procedures, bathroom and other care routines, personal items, smoking policy, room service/diet, and visiting hours. Information on how to activate the Rapid Response Team has been discussed. Patient/Family are encouraged to report perceived risks to care and to ask questions if they do not understand what they are told or what they should do.
--- NOTE | 2025-04-18 10:29 | PM.IMHP ---
H&P: HPI History of Present Illness Date/Time: 04/18/25 10:29 Chief Complaint: shortness of breath Narrative: Patient is a 64 year old male with PMH of COPD, HTN, GERD, migraines and right-sided colon cancer at the hepatic flexure s/p right hemicolectomy in 2019 and chemo. Patient presented to the ER today with complaints of shortness of breath that did not improve after his breathing treatments. Patient was seen approximately 6 weeks ago by outpatient pulmonology and given azithromycin and PO steroid taper. Patient's breathing treatments were changed at this appointment. Patient was supposed to start Daliresp, however he reports he has not started it due to needing prior authorization which has not been completed yet. Patient reports he quit smoking 6 weeks ago. Patient reports he went back to work a few weeks ago and this has worsened his COPD. In the ER the patients labs were essentially unremarkable. Rapid covid, flu and RSV swab negative. CXR without acute findings. Patient was given nebulizer treatments and PO steroids. Patient was borderline hypoxemic in the ER and remained short of breath. During exam on the floor the patient is visibly short of breath with conversation. Patient's lung sounds tight with inspiratory and expiratory wheezing. Patient will be given ATC duo-neb treatments and IV steroids. Oxygen as needed to maintain sats > 90%. [place] [facility] Review of Systems Review of Systems: All systems reviewed & are unremarkable except as noted in HPI and below PMFSH Past Medical History Medical History BMI 29.0-29.9,adult History of trigger finger Incisional hernia of anterior abdominal wall without obstruction or gangrene Port-A-Cath in place (~2017) Malignant neoplasm of hepatic flexure Status post resection and reanastomosis. Chemotherapy now in progress now COPD (chronic obstructive pulmonary disease) Surgical History Surgical History History of rotator cuff surgery H/O right hemicolectomy H/O hernia repair 03/07/2020: Retrorectus recurrent incarcerated hernia repair with Prolene soft mesh, THUY transverse abdominus myofascial flap advancement (3cm on left, 3cm on right) removal mesh foreign body. Family History Family History Mother Family history of malignant neoplasm of breast in first degree relative Social History Social History Smoking packs per day: 2 Smoking cigarettes per day: 40.0 Years smoked: 40 Smoking pack-years: 80.00 Smoking status: Former smoker Tobacco type: cigarettes Second hand tobacco smoke exposure: No Smoking end date: 01/21/25 Additional smoking assessment comments: pt uses chantix has smoked off and on for years, not smoking now Alcohol intake: never Drinks per week: 4 Substance use: never Substance use type: opiates Last use: 09/04/24 Lack of Transportation: No Lack of Food: Never True Current Housing: I Have Housing Concerned About Future Housing: No Difficulty Paying Gas/Electric Bills: No Difficulty Paying for Meds: No Currently Unemployed: No Education: High School Diploma/GED Difficulty w/ Childcare or Family Care: No Living arrangements: with family Additional living arrangements comments: with sp Gender identity (if verbalized by the patient): Male Spiritual care concerns: No Meds Home Medications and Allergies Home Medications ?Medication ?Instructions ?Recorded ?Confirmed ?Type aspirin 325 mg tablet 325 mg PO DAILY 04/27/20 04/18/25 History albuterol sulfate 90 mcg/actuation 2 puff inhalation QID PRN 05/05/23 04/18/25 History aerosol inhaler Shortness Of Breath albuterol sulfate 2.5 mg/3 mL 2.5 mg inhalation Q6H PRN 09/06/24 04/18/25 History (0.083 %) solution for nebulization shortness of breath or wheezing nitroglycerin 0.4 mg sublingual 0.4 mg sublingual Q5M PRN chest 11/02/24 04/18/25 Rx tablet pain #20 tabs losartan 50 mg-hydrochlorothiazide 1 tablet PO DAILY 11/30/24 04/18/25 History 12.5 mg tablet metoclopramide HCl 10 mg tablet See Rx Instructions .Route 12/13/24 04/18/25 Rx .COMPLEX #120 tabs omeprazole 40 mg capsule,delayed 40 mg PO BID #120 caps 12/13/24 04/18/25 Rx release arformoterol 15 mcg/2 mL solution 2 ml inhalation Q12H #120 mL 03/04/25 04/18/25 Rx for nebulization budesonide 0.5 mg/2 mL suspension 0.5 mg (2 mL) inhalation BID #120 03/04/25 04/18/25 Rx for nebulization mL ipratropium bromide 0.02 % 2.5 ml inhalation QID PRN 03/04/25 04/18/25 Rx solution for inhalation shortness of breath or wheezing #300 mL roflumilast 500 mcg tablet 500 mcg PO DAILY #30 tabs 04/08/25 04/18/25 Rx (Daliresp) Allergies Allergy/AdvReac Type Severity Reaction Status Date / Time No Known Allergies Allergy Verified 04/18/25 10:21 Vital Signs Vital Signs - 24 hr 04/18/25 06:24 04/18/25 06:24 04/18/25 06:24 Temperature 97 F L Pulse Rate 77 94 Respiratory Rate 22 H Blood Pressure 153/103 H Pulse Oximetry 96 Oxygen Delivery Room Air Room Air 04/18/25 07:09 04/18/25 07:40 04/18/25 07:55 Temperature Pulse Rate 85 85 79 Respiratory Rate 24 H 24 H 12 Blood Pressure 137/78 Pulse Oximetry 97 98 97 Oxygen Delivery 04/18/25 07:56 04/18/25 08:01 04/18/25 08:16 Temperature Pulse Rate 78 84 87 Respiratory Rate 24 H 11 L 14 Blood Pressure 131/92 H 130/90 Pulse Oximetry 96 95 95 Oxygen Delivery 04/18/25 08:31 04/18/25 08:46 04/18/25 09:01 Temperature Pulse Rate 82 81 87 Respiratory Rate 12 11 L 8 L Blood Pressure 135/83 128/79 120/80 Pulse Oximetry 94 93 92 Oxygen Delivery 04/18/25 09:16 04/18/25 09:31 04/18/25 09:38 Temperature Pulse Rate 97 91 Respiratory Rate 13 14 Blood Pressure 118/75 117/75 Pulse Oximetry 94 93 95 Oxygen Delivery Room Air Exam Const: General: comfortable Other: mild respiratory distress during conversation HENMT: Face/Nose/Sinus: Normal nares present Mouth: Yes moist mucous membranes Eyes: General: appearance normal, both eyes and all related structures Sclera: sclerae normal Neck: Neck: supple Resp: Other: inspiratory and expiratory wheezing L>R, diminished air movement Cardio: Rate: regular rate Rhythm: regular rhythm GI: GI Palp: Yes Soft to palpation Auscultation: normal bowel sounds Skin: General skin exam: normal color and no rashes or lesions noted Neuro: General: gait normal Speech: normal speech Motor exam (neuro): 5/5 motor strength present throughout Sensory Exam: normal sensation Extrem: General: normal to inspection Psych: Mental Status: mental status grossly normal Affect: normal affect H&P: Results Labs Labs: Short CBC 04/18/25 Range/Units 07:05 WBC 6.3 (4.8-10.8) K/mm3 Hgb 14.7 (14.0-18.0) g/dL Hct 42.9 (40.0-54.0) % Plt Count 160 (150-420) K/mm3 BMP 04/18/25 07:05 Sodium 141 Potassium 4.0 Chloride 108 H Carbon Dioxide 24 BUN 9 Creatinine 0.73 Glucose 118 H Calcium 8.9 Cardiac Enzymes 04/18/25 Range/Units 07:05 Troponin I < 0.012 (0.000-0.034) ng/mL Liver Function 04/18/25 Range/Units 07:05 Total Bilirubin 0.4 (0.2-1.3) mg/dL AST 82 H (17-59) U/L ALT 75 H (6-50) U/L Alkaline Phosphatase 71 (38-126) U/L Albumin 4.2 (3.5-5.1) g/dL Imaging Chest x-ray: Radiologist's impression: Ordering Physician: Megan Soni MD Date of Service: 04/18/25 Procedure(s): XR chest 1V portable Accession Number(s): [id number] cc: Megan Soni MD; Leonardo Gomez MD~ Examination: XR chest 1V portable Clinical History: SHORTNESS OF BREATH Comparison: 12/15/2024 Technique: Portable AP Findings: Heart size normal. Lungs clear. No acute bony abnormality. Left clavicle ORIF, rib fractures as before. IMPRESSION: 1. No acute cardiopulmonary findings given portable technique. Reviewed, dictated and finalized at location R. Assessment and Plan Assessment and plan (1) Acute exacerbation of chronic obstructive pulmonary disease: Code(s): J44.1 - Chronic obstructive pulmonary disease with (acute) exacerbation Status: Acute Assessment and Plan: patient presented with dyspnea, wheezing, borderline hypoxia s/p nebs and PO steroid in ER s/p CXR without acute findings IV solu-medrol 80 mg Q 6 hours duo-nebs Q 6 hours scheduled budesonide Q 12 hours aformoterol Q 12 hours add albuterol PRN if needed (2) Hypertension: Code(s): I10 - Essential (primary) hypertension Status: Acute Assessment and Plan: continue losartan continue HCTZ monitor blood pressure and adjust as indicated (3) GERD (gastroesophageal reflux disease): Qualifiers: Esophagitis presence: with esophagitis Code(s): K21.9 - Gastro-esophageal reflux disease without esophagitis Status: Acute Assessment and Plan: continue pantoprazole (4) History of colon cancer: Code(s): Z85.038 - Personal history of other malignant neoplasm of large intestine Status: Acute Assessment and Plan: patient s/p right hemicolectomy in 2019 takes metoclopramide 10 mg TID with meals and at HS per GI notes in chart continue home metocloperimide Quality VTE Prophylaxis VTE prophylaxis: pharmacologic ordered
[2025-04-18] MEDS: ASPIRIN 325 MG ENTERIC TABLET PO (11:32)
[2025-04-18] MEDS: LOSARTAN POTASSIUM 50 MG TABLET PO (11:32)
[2025-04-18] MEDS: METOCLOPRAMIDE HCL 10 MG TABLET BY MOUTH ×3 (11:51→21:05)
[2025-04-18] MEDS: IPRATROPIUM 0.5 MG/ALBUTEROL SULFATE 2.5 MG (BASE) AMPUL.NEB 3 ML INHALATION ×2 (11:54→17:39)
--- OUTSIDE RECORDS SUMMARY | 2025-04-18 13:23 | XMS_ITS | Encounter Summary ---
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
--- OUTSIDE RECORDS SUMMARY | 2025-04-18 13:23 | XMS_ITS | Clinical Summary ---
Author Organization [facility]emberto Bledsoe Address [address] [place] [place] [address] Care Team Providers Care Vice President Lending Name Role Phone Leonardo Gomez MD Primary Care Provider [phone] Allergies No known active allergies Medications lidocaine-prilo [...] Data STL ABSTRACTION Provider, Abstract 03/18/2025 Refill [facility] - [place] [address] [place] [address] Alireza Bach MD Malignant neoplasm of hepatic flexure (CMS/HCC) 03/08/2025 External Device Data STL ABSTRACTION Provider, Abstract 03/01/2025 External Device Data STL ABSTRACTION Provider, Abstract 02/22/2025 External Device Data STL ABSTRACTION Provider, Abstract 02/08/2025 External Device Data STL ABSTRACTION Provider, Abstract 02/04/2025 Refill [facility] - [place] [address] [place] [address] Alireza Bach MD Malignant neoplasm of hepatic [...] st Contact Info) Description 07/11/2025 2:30 PM UNIT ASSISTANT Office Visit [facility] - [place] [address] [facility] [address] [place] [address] Alireza Bach MD [address] [facility] [address] [address] [place] [address] Health Maintenance Due Date Last Done Comments Pre-Diabetes and Diabetes Screening 1962 DTAP/TDAP/TD VACCINES (1 - Tdap) 1981 Lung Cancer Screening 2012 ZOSTER VACCINE (1 of 2) 2012 INFLUENZA VACCINE (#1) 2025 RSV VACCINE (60+ or ) (1 - 1-dose 75+ series) 2037 Insurance [facility] CHOICE [id number] Care Teams Vice President Lending Relationship Specialty Start Date End Date Leonardo Gomez MD [address] [place] [id number] PCP - General Family Practice 03/29/19
--- OUTSIDE RECORDS SUMMARY | 2025-04-18 13:23 | XMS_ITS | Clinical Summary ---
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
--- OUTSIDE RECORDS SUMMARY | 2025-04-18 13:23 | XMS_ITS | Clinical Summary ---
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
[2025-04-18] MEDS: BUDESONIDE RESPULE NEB 0.5 MG/2 ML AMP INHALATION (17:39)
[2025-04-18] MEDS: ARFORMOTEROL TARTRATE 15 MCG/2 ML NEB 30 MCG INHALATION (17:39)
[2025-04-18] MEDS: LORazepam (*CRX) 0.5 MG TABLET PO (21:06)
[2025-04-19] VITALS (16 sets, daily range): BP systolic 121–151; BP diastolic 90–105; PULSE 65–112; RESP 18–22; TEMP 36.9–37; O2SAT 94–98
[2025-04-19] MEDS: IPRATROPIUM 0.5 MG/ALBUTEROL SULFATE 2.5 MG (BASE) AMPUL.NEB 3 ML INHALATION ×5 (00:10→23:52)
[2025-04-19] MEDS: BUDESONIDE RESPULE NEB 0.5 MG/2 ML AMP INHALATION ×2 (05:34→17:44)
[2025-04-19] MEDS: ARFORMOTEROL TARTRATE 15 MCG/2 ML NEB 30 MCG INHALATION ×2 (05:41→18:12)
[2025-04-19] MEDS: METOCLOPRAMIDE HCL 10 MG TABLET BY MOUTH ×4 (08:36→20:46)
[2025-04-19] MEDS: ENOXAPARIN 40 MG/0.4 ML SYRINGE SUB-Q (09:21)
[2025-04-19] MEDS: ASPIRIN 325 MG ENTERIC TABLET PO (09:21)
[2025-04-19] MEDS: LOSARTAN POTASSIUM 50 MG TABLET PO (09:21)
[2025-04-19] MEDS: LORazepam (*CRX) 0.5 MG TABLET PO ×3 (09:24→23:53)
[2025-04-19 10:08] LABS: Hematocrit 45.4 % (40.0-54.0); Hemoglobin 15.5 g/dL (14.0-18.0); Immature Granulocyte Percent A 0.5 % (0.0-0.0); Lymphocytes Absolute Auto 0.49 K/mm3 (1.10-4.50); Mean Corpuscular HGB Conc 34.1 g/dL (32-36); Mean Corpuscular Hemoglobin 34.8 pg (27.0-31.0); Mean Corpuscular Volume 101.8 fL (78.0-102.0); Nucleated Red Blood Cells Absolute Auto 0.00 K/mm3 (0.00-0.00); Nucleated Red Blood Cells Perc 0.0 % (0-0.0); Platelet Count Result 179 K/mm3 (150-420); Red Blood Count 4.46 M/mm3 (4.70-6.10); White Blood Count 14.9 K/mm3 (4.8-10.8)
[2025-04-19 10:33] LABS: Magnesium 1.8 mg/dL (1.6-2.3)
[2025-04-19 10:34] LABS: Alanine Aminotransferase 85 U/L (6-50); Albumin Level 4.7 g/dL (3.5-5.1); Alkaline Phosphatase 59 U/L (38-126); Anion Gap 14 mmol/L (4-12); Bilirubin,Total 0.8 mg/dL (0.2-1.3); Blood Urea Nitrogen 13 mg/dL (9-20); Calcium 9.7 mg/dL (8.4-10.2); Carbon Dioxide 25 mmol/L (22-30); Chloride 97 mmol/L (98-107); Estimated CRCL calculation 83 ml/min; Estimated Glomerular Filt Rate > 60; Glucose 204 mg/dL (65-110); Osmolality Calculated 288 mOsm/kg (285-295); Potassium 3.9 mmol/L (3.4-5.0); Sodium 136 mmol/L (137-145); Total Protein 8.5 g/dL (6.3-8.2)
[2025-04-19 10:51] LABS: Aspartate Amino Transferase 61 U/L (17-59)
--- NOTE | 2025-04-19 11:30 | PM.IMPN ---
Progress Note: A&P Assessment and Plan (1) Acute exacerbation of chronic obstructive pulmonary disease: Code(s): J44.1 - Chronic obstructive pulmonary disease with (acute) exacerbation Status: Acute Assessment and Plan: patient presented with dyspnea, wheezing, borderline hypoxia s/p nebs and PO steroid in ER s/p CXR without acute findings IV solu-medrol 80 mg Q 6 hours duo-nebs Q 6 hours scheduled budesonide Q 12 hours aformoterol Q 12 hours add albuterol PRN if needed add IV azithromycin 500 mg Q 24 hours x 5 days patient still very tight and wheezing, continue current dose of IV steroids for now (2) Hypertension: Code(s): I10 - Essential (primary) hypertension Status: Acute Assessment and Plan: continue losartan continue HCTZ monitor blood pressure and adjust as indicated (3) GERD (gastroesophageal reflux disease): Qualifiers: Esophagitis presence: with esophagitis Code(s): K21.9 - Gastro-esophageal reflux disease without esophagitis Status: Acute Assessment and Plan: continue pantoprazole (4) History of colon cancer: Code(s): Z85.038 - Personal history of other malignant neoplasm of large intestine Status: Acute Assessment and Plan: patient s/p right hemicolectomy in 2019 takes metoclopramide 10 mg TID with meals and at HS per GI notes in chart continue home metocloperimide Subjective Date/time seen: 04/19/25 11:30 Interval history: Patient seen for a follow up visit. Patient appears slightly improved from yesterday but does still become dyspneic with conversation. Patient reports he slept well with the lorazepam PRN last night. Patient is tolerating the IV steroids. Patient denies acute pain. Patient's lungs still very tight with inspiratory and expiratory wheezing. Continue IV steroids and neb treatments. Add IV azithromycin. Review of Systems Review of Systems: All systems reviewed & are unremarkable except as noted in HPI and below Exam Const: General: comfortable Other: mild respiratory distress during conversation HENMT: Face/Nose/Sinus: Normal nares present Mouth: Yes moist mucous membranes Eyes: General: appearance normal, both eyes and all related structures Sclera: sclerae normal Neck: Neck: supple Resp: Other: inspiratory and expiratory wheezing bilaterally, diminished air movement Cardio: Rate: regular rate Rhythm: regular rhythm GI: Auscultation: normal bowel sounds Skin: General skin exam: normal color and no rashes or lesions noted Neuro: General: gait normal Speech: normal speech Motor exam (neuro): 5/5 motor strength present throughout Sensory Exam: normal sensation Extrem: General: normal to inspection Psych: Mental Status: mental status grossly normal Affect: normal affect Objective Data Vital Signs Vital Signs: Vital Signs - 24 hr 04/18/25 11:55 04/18/25 12:05 04/18/25 16:00 Temperature Pulse Rate 85 79 78 Respiratory Rate 20 20 Blood Pressure Pulse Oximetry 97 99 Oxygen Delivery Oxygen Flow Rate 04/18/25 20:00 04/18/25 20:00 04/19/25 00:00 Temperature Pulse Rate 92 104 H 68 Respiratory Rate 20 Blood Pressure Pulse Oximetry 95 Oxygen Delivery Room Air Oxygen Flow Rate 04/19/25 00:00 04/19/25 00:10 04/19/25 00:42 Temperature 98.6 F Pulse Rate 78 66 75 Respiratory Rate 20 20 18 Blood Pressure 135/91 H Pulse Oximetry 95 95 95 Oxygen Delivery Room Air Oxygen Flow Rate 04/19/25 04:00 04/19/25 05:35 04/19/25 05:53 Temperature Pulse Rate 65 112 H 98 Respiratory Rate 20 20 Blood Pressure Pulse Oximetry 98 98 Oxygen Delivery Oxygen Flow Rate 04/19/25 07:40 04/19/25 08:00 04/19/25 08:30 Temperature 98.4 F Pulse Rate 82 82 Respiratory Rate 18 Blood Pressure 139/105 H Pulse Oximetry 95 95 Oxygen Delivery Room Air Room Air Oxygen Flow Rate 04/19/25 11:22 Temperature Pulse Rate 81 Respiratory Rate 22 H Blood Pressure Pulse Oximetry 95 Oxygen Delivery Oxygen Flow Rate 0 Intake/Output Intake/Output: Intake & Output 04/16/25 04/17/25 04/18/25 04/19/25 23:59 23:59 23:59 23:59 Intake Total 1680 1140 Balance 1680 1140 Meds/Results Medications: Active Medications Generic Name Dose Route Start Last Admin Trade Name Freq PRN Reason Stop Dose Admin Acetaminophen 650 mg 04/18/25 11:08 Acetaminophen 325 Mg Tablet PO Q4H PRN Mild Pain (1-3) or Fever Albuterol/Ipratropium 3 ml 04/18/25 12:00 04/19/25 11:21 Ipratropium 0.5 Mg/Albuterol Sulfate 2.5 Mg (Base) Ampul.Neb 3 Ml INHALATION 3 ml Q6HR BETHANY Administration Arformoterol Tartrate 30 mcg 04/18/25 18:30 04/19/25 05:41 Arformoterol Tartrate 15 Mcg/2 Ml Neb INHALATION 30 mcg Q12HRT BETHANY Administration Aspirin 325 mg 04/18/25 11:00 04/19/25 09:21 Aspirin 325 Mg Enteric Tablet PO 325 mg QAM BETHANY Administration Bisacodyl 5 mg 04/18/25 09:00 Bisacodyl 5 Mg Tablet Ec PO DAILY PRN Constipation Budesonide 0.5 mg 04/18/25 18:30 04/19/25 05:34 Budesonide Respule Neb 0.5 Mg/2 Ml Amp INHALATION 0.5 mg Q12HRT BETHANY Administration Enoxaparin Sodium 40 mg 04/19/25 09:00 04/19/25 09:21 Enoxaparin 40 Mg/0.4 Ml Syringe SUB-Q 40 mg DAILY BETHANY Administration Hydrochlorothiazide 12.5 mg 04/18/25 11:00 04/19/25 09:21 Hydrochlorothiazide 12.5 Mg Capsule PO 12.5 mg QAM BETHANY Administration Lorazepam 0.5 mg 04/18/25 20:15 04/19/25 09:24 Lorazepam (*Crx) 0.5 Mg Tablet PO 0.5 mg Q6H PRN Administration Anxiety Losartan Potassium 50 mg 04/18/25 11:00 04/19/25 09:21 Losartan Potassium 50 Mg Tablet PO 50 mg QAM BETHANY Administration Methylprednisolone Sodium Succinate 80 mg 04/18/25 12:00 04/19/25 08:36 Methylprednisolone Sod Succ 125 Mg Vial IV PUSH 80 mg Q6HR BETHANY Administration Metoclopramide HCl 10 mg 04/18/25 11:30 04/19/25 08:36 Metoclopramide Hcl 10 Mg Tablet BY MOUTH 10 mg ACHS BETHANY Administration Ondansetron HCl 4 mg 04/18/25 11:08 Ondansetron Inj 4 Mg/2 Ml Vial IV PUSH Q6H PRN Nausea And Vomiting Pantoprazole Sodium 40 mg 04/19/25 11:00 Pantoprazole 40 Mg Tablet PO BID [facility] Radiology Results: ITS Impressions Chest X-Ray 04/18/25 07:01 IMPRESSION: 1. No acute cardiopulmonary findings given portable technique. Labs Labs: Laboratory Results - last 24 hr 04/19/25 10:02 WBC 14.9 H RBC 4.46 L Hgb 15.5 Hct 45.4 MCV 101.8 MCH 34.8 H MCHC 34.1 RDW 12.3 Plt Count 179 MPV 9.8 Immature Gran % (Auto) 0.5 H Neut % (Auto) 93.6 H Lymph % (Auto) 3.3 L [place] % (Auto) 2.4 Eos % (Auto) 0.1 L Baso % (Auto) 0.1 Lymph # (Auto) 0.49 L [place] # (Auto) 0.36 Eos # (Auto) 0.02 Baso # (Auto) 0.02 Abs Immat Gran (auto) 0.08 H Absolute Neuts (auto) 13.97 H Absolute Nucleated RBC 0.00 Nucleated RBC % 0.0 Sodium 136 L Potassium 3.9 Chloride 97 L Carbon Dioxide 25 Anion Gap 14 H BUN 13 Creatinine 0.78 Estim Creat Clear Calc 83 Estimated GFR > 60 Glucose 204 H Calculated Osmolality 288 Calcium 9.7 Magnesium 1.8 Total Bilirubin 0.8 AST 61 H ALT 85 H Alkaline Phosphatase 59 Total Protein 8.5 H Albumin 4.7 Quality VTE Prophylaxis VTE prophylaxis: pharmacologic ordered
[2025-04-19] MEDS: PANTOPRAZOLE 40 MG TABLET PO ×2 (11:41→16:51)
[2025-04-19] MEDS: AZITHROMYCIN IV 500 MG in SODIUM CHLORIDE 0.9% IV 250 ML IVPB (13:15)
[2025-04-19] MEDS: ALBUTEROL SULFATE NEB 2.5 MG/3 ML INH INHALATION (15:39)
[2025-04-20] VITALS (11 sets, daily range): BP systolic 134–144; BP diastolic 79–81; PULSE 70–102; RESP 12–20; TEMP 36.9–37.1; O2SAT 94–99
[2025-04-20] MEDS: METOCLOPRAMIDE HCL 10 MG TABLET BY MOUTH ×2 (05:32→12:23)
[2025-04-20] MEDS: IPRATROPIUM 0.5 MG/ALBUTEROL SULFATE 2.5 MG (BASE) AMPUL.NEB 3 ML INHALATION ×2 (05:37→12:33)
[2025-04-20] MEDS: LORazepam (*CRX) 0.5 MG TABLET PO (05:37)
[2025-04-20] MEDS: ARFORMOTEROL TARTRATE 15 MCG/2 ML NEB 30 MCG INHALATION (05:37)
[2025-04-20] MEDS: BUDESONIDE RESPULE NEB 0.5 MG/2 ML AMP INHALATION (05:37)
[2025-04-20 05:41] LABS: Hematocrit 42.7 % (40.0-54.0); Hemoglobin 14.6 g/dL (14.0-18.0); Immature Granulocyte Percent A 0.6 % (0.0-0.0); Lymphocytes Absolute Auto 0.58 K/mm3 (1.10-4.50); Mean Corpuscular HGB Conc 34.2 g/dL (32-36); Mean Corpuscular Hemoglobin 34.8 pg (27.0-31.0); Mean Corpuscular Volume 101.9 fL (78.0-102.0); Nucleated Red Blood Cells Absolute Auto 0.00 K/mm3 (0.00-0.00); Nucleated Red Blood Cells Perc 0.0 % (0-0.0); Platelet Count Result 164 K/mm3 (150-420); Red Blood Count 4.19 M/mm3 (4.70-6.10); White Blood Count 14.5 K/mm3 (4.8-10.8)
[2025-04-20 05:54] LABS: Alanine Aminotransferase 53 U/L (6-50); Albumin Level 4.1 g/dL (3.5-5.1); Alkaline Phosphatase 54 U/L (38-126); Anion Gap 9 mmol/L (4-12); Aspartate Amino Transferase 36 U/L (17-59); Bilirubin,Total 0.7 mg/dL (0.2-1.3); Blood Urea Nitrogen 17 mg/dL (9-20); Calcium 9.6 mg/dL (8.4-10.2); Carbon Dioxide 28 mmol/L (22-30); Chloride 102 mmol/L (98-107); Estimated CRCL calculation 95 ml/min; Estimated Glomerular Filt Rate > 60; Glucose 153 mg/dL (65-110); Osmolality Calculated 292 mOsm/kg (285-295); Potassium 4.1 mmol/L (3.4-5.0); Sodium 139 mmol/L (137-145); Total Protein 6.6 g/dL (6.3-8.2)
[2025-04-20] MEDS: PANTOPRAZOLE 40 MG TABLET PO (08:58)
[2025-04-20] MEDS: LOSARTAN POTASSIUM 50 MG TABLET PO (08:59)
[2025-04-20] MEDS: ASPIRIN 325 MG ENTERIC TABLET PO (08:59)
[2025-04-20] MEDS: ALBUTEROL SULFATE NEB 2.5 MG/3 ML INH INHALATION (09:52)
[2025-04-20] MEDS: AZITHROMYCIN IV 500 MG in SODIUM CHLORIDE 0.9% IV 250 ML IVPB (12:26)
--- NOTE | 2025-04-20 13:26 | P.DS_ITS ---
DS: Admitting Diagnosis Discharge Date 04/20/2025 Admitting Diagnosis COPD exacerbation Hypertension GERD History of colon cancer DS: Discharge Diagnosis Discharge Diagnosis (1) Acute exacerbation of chronic obstructive pulmonary disease: Code(s): J44.1 - Chronic obstructive pulmonary disease with (acute) exacerbation Status: Acute Assessment and Plan: patient presented with dyspnea, wheezing, borderline hypoxia s/p nebs and PO steroid in ER s/p CXR without acute findings IV solu-medrol 80 mg Q 6 hours duo-nebs Q 6 hours scheduled budesonide Q 12 hours aformoterol Q 12 hours add albuterol PRN if needed continue IV azithromycin d/c with 3 days azithromycin PO dc with 5 days PO prednisone 40 mg daily patient improving, wants to go home today (2) Hypertension: Code(s): I10 - Essential (primary) hypertension Status: Acute Assessment and Plan: continue losartan continue HCTZ monitor blood pressure and adjust as indicated (3) GERD (gastroesophageal reflux disease): Qualifiers: Esophagitis presence: with esophagitis Code(s): K21.9 - Gastro-esophageal reflux disease without esophagitis Status: Acute Assessment and Plan: continue pantoprazole (4) History of colon cancer: Code(s): Z85.038 - Personal history of other malignant neoplasm of large intestine Status: Acute Assessment and Plan: patient s/p right hemicolectomy in 2019 takes metoclopramide 10 mg TID with meals and at HS per GI notes in chart continue home metocloperimide DS: Summary Hospital Course Reason for hospitalization: shortness of breath Hospital Course: The patient is a 64-year-old male with a history of COPD, hypertension, GERD, migraines, and right-sided colon cancer status post hemicolectomy and chemotherapy, who presented with acute shortness of breath unresponsive to home breathing treatments. He had recently seen pulmonology and was prescribed azithromycin and a steroid taper, with a plan to start roflumilast, which was delayed due to insurance authorization. In the emergency department, he was found to be borderline hypoxemic with persistent dyspnea and wheezing. Initial labs were unremarkable, and chest x-ray showed no acute findings. He was admitted for management of an acute COPD exacerbation and started on scheduled nebulized bronchodilators, IV steroids, and supplemental oxygen as needed. IV azithromycin was added due to leukocytosis and increased neutrophil count. The patient?s respiratory status gradually improved with therapy, and he remained hemodynamically stable throughout his stay. On the day of discharge, he was ambulating without significant dyspnea and expressed a strong desire to return home. He was discharged in stable condition on a 3-day course of oral azithromycin and a 5-day course of oral prednisone, with instructions to follow up with his primary care provider in 1?2 weeks. Time Spent with Patient Time attestation: Total time spent providing and/or coordinating discharge services: 35 Minutes Exam Const: General: comfortable Other: no distress HENMT: Face/Nose/Sinus: Normal nares present Mouth: Yes moist mucous membranes Eyes: General: appearance normal, both eyes and all related structures Sclera: sclerae normal Neck: Neck: supple Resp: Other: few expiratory wheezes heard, improved air flow Cardio: Rate: regular rate Rhythm: regular rhythm GI: Auscultation: normal bowel sounds Skin: General skin exam: normal color and no rashes or lesions noted Neuro: General: gait normal Speech: normal speech Motor exam (neuro): 5/5 motor strength present throughout Sensory Exam: normal sensation Extrem: General: normal to inspection Psych: Mental Status: mental status grossly normal Affect: normal affect DS: Data Data Completed and Pending Labs on day of discharge: Labs from last 24 hours 04/20/25 05:12 WBC 14.5 H RBC 4.19 L Hgb 14.6 Hct 42.7 MCV 101.9 MCH 34.8 H MCHC 34.2 RDW 12.5 Plt Count 164 MPV 10.3 Immature Gran % (Auto) 0.6 H Neut % (Auto) 92.4 H Lymph % (Auto) 4.0 L [place] % (Auto) 2.8 Eos % (Auto) 0.0 L Baso % (Auto) 0.2 Lymph # (Auto) 0.58 L [place] # (Auto) 0.41 Eos # (Auto) 0.00 L Baso # (Auto) 0.03 Abs Immat Gran (auto) 0.09 H Absolute Neuts (auto) 13.37 H Absolute Nucleated RBC 0.00 Nucleated RBC % 0.0 Sodium 139 Potassium 4.1 Chloride 102 Carbon Dioxide 28 Anion Gap 9 BUN 17 Creatinine 0.67 L Estim Creat Clear Calc 95 Estimated GFR > 60 Glucose 153 H Calculated Osmolality 292 Calcium 9.6 Total Bilirubin 0.7 AST 36 ALT 53 H Alkaline Phosphatase 54 Total Protein 6.6 Albumin 4.1 Discharge Plan Discharge Attending physician on discharge: Kolton Diaz Consulting providers: Patricia Crews; Nomi Carvalho; Rolly Roberts Discharging Clinician: Patricia Crews Patient Disposition: Home Activity: as tolerated Diet: as tolerated Discharge Instructions: Please use your albuterol nebulizer 4 times per day for the next 5-7 days. Then resume your normal schedule of once per day as needed per pulmonology. Patient Instructions: Antibiotic Form, Prednisone (By mouth), Azithromycin (By mouth), COPD (Chronic Obstructive Pulmonary Disease) (DC), Fall Prevention (DC) Patient Language: Slovak Stand Alone Forms: General Discharge Information, Work/School Release IP Follow-up/Referrals: Leonardo Gomez MD [Primary Care Provider, Internal Medicine] Referral Note: call for an appointment to be seen within 1-2 weeks of discharge Discharge Medications: New prednisone 20 mg tablet 40 mg PO DAILY 5 Days Qty: 10 0RF azithromycin 500 mg tablet 500 mg PO DAILY 3 Days Qty: 3 0RF Continued albuterol sulfate 90 mcg/actuation HFA aerosol inhaler 2 puff INHALATION QID PRN (Reason: Shortness Of Breath) omeprazole 40 mg capsule,delayed release(DR/EC) 40 mg PO BID Qty: 120 3RF Patient Comments: Only takes as needed metoclopramide HCl 10 mg tablet See Rx Instructions .ROUTE .COMPLEX Qty: 120 3RF Dose Instruction: TAKE ONE TABLET ORALLY BEFORE MEALS AND AT BEDTIME Rx Instructions: TAKE ONE TABLET ORALLY BEFORE MEALS AND AT BEDTIME losartan-hydrochlorothiazide 50-12.5 mg tablet 1 tablet PO DAILY budesonide 0.5 mg/2 mL suspension for nebulization 0.5 mg inhalation BID Qty: 120 5RF Rx Instructions: Rinse mouth and spit after each use ipratropium bromide 0.02 % solution 2.5 ml inhalation QID PRN (Reason: shortness of breath or wheezing) Qty: 300 5RF arformoterol 15 mcg/2 mL solution for nebulization 2 ml inhalation Q12H Qty: 120 5RF aspirin 325 mg Tablet 325 mg PO DAILY albuterol sulfate 2.5 mg /3 mL (0.083 %) solution for nebulization 2.5 mg inhalation Q6H PRN (Reason: shortness of breath or wheezing) roflumilast [Daliresp] 500 mcg tablet 500 mcg PO DAILY Qty: 30 5RF No Action sodium chloride 3 % solution for nebulization 4 ml inhalation Q8H PRN (Reason: secretions) Qty: 120 5RF guaifenesin [Mucinex] 600 mg tablet extended release 12hr 600 mg PO BID PRN (Reason: congestion) Qty: 30 5RF Date of admission: 04/18/25 09:41 Primary Care Provider: Leonardo Gomez Admitting Provider: Kolton Diaz Attending physician on admission: Kolton Diaz Condition: Stable Quality VTE Prophylaxis VTE prophylaxis: pharmacologic ordered
--- NOTE | 2025-04-20 13:45 | PC.NURSE ---
Discharge to home, no questions regarding dc instructions, personal belongings sent copy of dc order sent, off work till friday. Alert and oriented agreeable with discharge plan
--- NOTE | 2025-04-21 10:00 | PC.NURSE ---
Discharge call back attempted, no answer
--- NOTE | 2025-04-22 09:15 | PC.NURSE ---
Discharge call back complete, doing well, no questions regarding medications or instructions
== END 2025-04-20 13:45 | disposition home or self-care (01) ==
LOC: CHSED 09:44 → CHS2ND 09:53
PROVIDERS: Emergency Medicine; Nurse Practitioner Adult Health; Admitting Provider Internal Medicine; Emergency Provider Emergency Medicine; PCP Family Medicine; Visit Provider Internal Medicine
DX: J44.1 Chronic obstructive pulmonary disease with (acute) exacerbation (principal); Z87.891 Personal history of nicotine dependence; Z79.51 Long term (current) use of inhaled steroids; Z20.822 Contact with and (suspected) exposure to COVID-19
CPT/HCPCS: 36415; 36600; 71045; 80053; 82805; 83735; 83880; 84484; 85025; 85380; 85610; 85730; 87637; 93005; 94640; 96365; 96372; 96374; 96375; 96376; 99285; A9270; G0378; J0456; J1650; J2919; J7050; J7512

== ENCOUNTER 2025-06-21 07:45 | Outpatient (CLI) | payer OTHER, SELFPAY ==
--- NOTE | ~2025-06-21 | CT_ITS ---
EXAMINATION:CT lung screening DATE: 06/21/2025 08:02 INDICATION: Personal history of nicotine dependence. TECHNIQUE: Computed tomography (CT) of the chest was performed without intravenous contrast. Automated exposure control and iterative reconstruction technique were employed. The dose-length product (DLP) was 159.25 mGy-cm. COMPARISON: Chest CT 06/02/2024 FINDINGS: There is mild emphysema. There is a stable 4 mm nodule in right upper lobe. There is a stable 5 mm nodule in left lower lobe. No pleural effusion. The heart size is normal. There are coronary artery calcifications. No pericardial effusion. There is diffuse hepatic steatosis. There are surgical changes of the stomach. There is plate and screw fixation of left clavicle. There is mild thoracic spondylosis. There are old healed left rib fractures. IMPRESSION: 1. Lung-RADS category 2: Benign appearance or behavior. Continue annual screening with noncontrast low-dose chest CT in 12 months. Reviewed, dictated and finalized at location E. MACHINE OPERATOR IMPRESSION: 1. Lung-RADS category 2: Benign appearance or behavior. Continue annual screeni ng with noncontrast low-dose chest CT in 12 months.
--- OUTSIDE RECORDS SUMMARY | 2025-06-21 07:49 | XMS_ITS | Clinical Summary ---
Author Organization 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
--- OUTSIDE RECORDS SUMMARY | 2025-06-21 07:49 | XMS_ITS | Encounter Summary ---
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
--- OUTSIDE RECORDS SUMMARY | 2025-06-21 07:49 | XMS_ITS | Clinical Summary ---
Author Organization [facility] Remberto Segoviasierra Address [address] [place] [address] Care Team Providers Care Rn Document Improvement Specialist Name Role Phone Leonardo Gomez MD Primary Care Provider [phone] Allergies No known active allergies Medications lidocaine-prilo [...] Encounters Date Type Department Care Team Description 06/14/2025 External Device Data [facility] ABSTRACTION Provider, Abstract 06/07/2025 External Device Data [facility] ABSTRACTION Provider, Abstract 06/02/[address] [facility] Oncology and Hematology [facility] [address] [place] [address] [place] [id number] Alireza Bach MD Malignant neoplasm of hepatic flexure (CMS/HCC) 05/17/2025 External Device Data [facility] ABSTRACTION Provider, Abstract 05/17/2025 External Device Data [facility] ABSTRACTION Provider, Abstract 03/29/2025 External Device Data [facility] ABSTRACTION Provider, Abstract from Last 3 Months Family History Medical History Relation Name Comments Heart Disease Father Cancer Mother Relation Name Status Comments Father Mother Alive Social History Tobacco Use Types Packs/Day Years Used Date Smoking Tobacco: Every Day Cigarettes 2 35.6 Started: 05/14/1988; Last attempted to quit: 05/14/2018 [...] st Contact Info) Description 07/11/2025 2:30 PM LICSW Office Visit [facility] Oncology and Hematology - [place] [address] [facility] [address] [place] [address] Alireza Bach MD [address] [facility] [address] [place] [address] Health Maintenance Due Date Last Done Comments Pre-Diabetes and Diabetes Screening 1962 DTAP/TDAP/TD VACCINES (1 - Tdap) 1981 Lung Cancer Screening 2012 ZOSTER VACCINE (1 of 2) 2012 INFLUENZA VACCINE (#1) 2025 RSV VACCINE (60+ or ) (1 - 1-dose 75+ series) 2037 Insurance [facility] CHOICE [id number] Care Teams Rn Document Improvement Specialist Relationship Specialty Start Date End Date Leonardo Gomez MD [address] [place] [address] PCP - General Family Practice 03/29/19
--- OUTSIDE RECORDS SUMMARY | 2025-06-21 07:49 | XMS_ITS | Clinical Summary ---
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
== END 2025-06-21 07:46 | disposition home or self-care (01) ==
LOC: CHSIMG 07:46
PROVIDERS: PCP Family Medicine; Visit Provider Physician Assistant
DX: Z12.2 Encounter for screening for malignant neoplasm of respiratory organs (principal); Z87.891 Personal history of nicotine dependence
CPT/HCPCS: 71271